=== PATIENT | female | born 1945 | race African-American/Black ===

== ENCOUNTER 2018-09-13 13:49 | Inpatient (IN) | payer MEDICARE, OTHER ==
[~2018-09-13] VITALS: Ht 162.6 cm; Wt 59.0 kg
--- NOTE | 2018-09-13 13:52 | NUR ---
ED Nurse Note: BROUGHT IN BY ERVIN FROM [facility] DUE TO NECK PAIN AND TINGLING SENSATION SINCE LAST NIGHT. PT CAME IN WITH NECK COLLAR. PER PT, SHE WEARS NECK COLLAR AT NIGHT TIME IN THE HALF-WAY WHEN SHE'S IN PAIN. SHE HAS PAIN IN AFTER THE FALL IN OCTOBER 2017. NO TRAUMA
[2018-09-13 13:55] VITALS: BP 141/65
--- NOTE | 2018-09-13 13:56 | Emergency Room Report ---
History of Present Illness General Chief Complaint: Neck Pain Source: Patient, EMS Present Illness HPI Patient is brought to the emergency department for increased neck pain and numbness. He had a fall in October. She is in a chronic brace at this time. There is no trauma today however she had increased neck pain and then started having numbness throughout her body. She denies chest pain at this time. She was given Carr earlier today. The pain is still significant in her neck. Pain rated 5/10 luis antonio and lower back, not radiating and constant. No recent trauma. She had neck trauma and neck fusion surgery 4 months ago. No fevers, chills, chest pain, palpitations, nausea, vomiting, diarrhea, dysuria , abdominal pain, shortness of breath, depression, visual changes, headache. Patient is not taking blood thinners and denies oncologic problems. H/O HTN H/O DM Allergies: Coded Allergies: CODEINE (Verified Allergy, Unknown, 09/13/18) Patient History Past Medical History: see triage record Past Surgical History: other - neck fusion Social History: Denies: smoking Social History Narrative [facility] Reviewed Nursing Documentation: PMH: Agreed; PSxH: Agreed Nursing Documentation-PMH Past Medical History: No History, Except For Hx Hypertension: Yes - hyperlipidemia Hx Diabetes: Yes History Of Psychiatric Problem: Yes - anxiety, muscle weakness Review of Systems All Other Systems: negative except mentioned in HPI Physical Exam Vital Signs Date Time Temp Pulse Resp B/P (MAP) Pulse Ox O2 Delivery O2 Flow Rate FiO2 09/13/18 13:48 98.4 103 14 141/65 100 Room Air Sp02 EP Interpretation: reviewed, normal General Appearance: no apparent distress, GCS 15, Chronically Ill Head: normocephalic, atraumatic Eyes: bilateral eye normal inspection, bilateral eye PERRL ENT: moist mucus membranes Neck: no bony tend, other - Rigid cervical collar in place, tender - Diffuse Respiratory: chest non-tender, lungs clear, normal breath sounds Cardiovascular #1: regular rate, rhythm Cardiovascular #2: 2+ radial (R) Gastrointestinal: normal inspection, normal bowel sounds, non tender, no mass, non-distended Genitourinary: no CVA tenderness Musculoskeletal: normal range of motion, tender - Lumbar area with muscle tightness Neurologic: alert, oriented x3, DTRs symmetric, cerebellar normal - Upper extremities, speech normal, no Babinski, motor weakness - Lower extremities - minimal. upper extremities normal strength, other - Subjective tingling and numbness face and body not lateralized Psychiatric: anxious Skin: normal inspection, warm/dry Medical Decision Making Diagnostic Impression: Primary Impression: Intractable back pain Additional Impressions: Intractable neck pain Paresthesias Anxiety ER Course The patient presents with neck pain and increased numbness. Differential includes anxiety, increase in chronic pain, spinal stenosis, CVA, post operative hematoma amongst others. The patient will be evaluated with EKG, chest x-ray, CT the head and CT the neck and labs. The patient will be treated with a dose of Zofran and morphine. The patient is placed on a manager monitoring. Labs significant for low white count. Elevated BUN. CT neck and head as listed below. Patient still was with significant pain. Morphine is repeated. There is slight relief. She still feels paresthesias. Etiology of the paresthesias are unclear. The patient is admitted to the hospital for further evaluation and treatment of pain. Laboratory Tests Test 09/13/18 14:48 09/13/18 15:30 09/14/18 05:45 White Blood Count 3.4 K/UL (4.8-10.8) L 2.7 K/UL (4.8-10.8) L Red Blood Count 3.63 M/UL (4.20-5.40) L 3.58 M/UL (4.20-5.40) L Hemoglobin 9.7 G/DL (12.0-16.0) L 9.7 G/DL (12.0-16.0) L Hematocrit 30.8 % (37.0-47.0) L 30.4 % (37.0-47.0) L Mean Corpuscular Volume 85 FL (80-99) 85 FL (80-99) Mean Corpuscular Hemoglobin 26.8 PG (27.0-31.0) L 27.1 PG (27.0-31.0) Mean Corpuscular Hemoglobin Concent 31.6 G/DL (32.0-36.0) L 31.8 G/DL (32.0-36.0) L Red Cell Distribution Width 12.8 % (11.6-14.8) 13.1 % (11.6-14.8) Platelet Count 198 K/UL (150-450) 200 K/UL (150-450) Mean Platelet Volume 6.4 FL (6.5-10.1) L 6.7 FL (6.5-10.1) Neutrophils (%) (Auto) % (45.0-75.0) % (45.0-75.0) Lymphocytes (%) (Auto) % (20.0-45.0) % (20.0-45.0) Monocytes (%) (Auto) % (1.0-10.0) % (1.0-10.0) Eosinophils (%) (Auto) % (0.0-3.0) % (0.0-3.0) Basophils (%) (Auto) % (0.0-2.0) % (0.0-2.0) Differential Total Cells Counted 100 100 Neutrophils % (Manual) 43 % (45-75) L 45 % (45-75) Lymphocytes % (Manual) 41 % (20-45) 48 % (20-45) H Monocytes % (Manual) 16 % (1-10) H 7 % (1-10) Eosinophils % (Manual) 0 % (0-3) 0 % (0-3) Basophils % (Manual) 0 % (0-2) 0 % (0-2) Band Neutrophils 0 % (0-8) 0 % (0-8) Platelet Estimate Adequate Adequate Platelet Morphology Normal Normal Red Blood Cell Morphology Normal Prothrombin Time 10.4 SEC (9.30-11.50) Prothrombin Time INR 1.0 (0.9-1.1) PTT 25 SEC (23-33) Sodium Level 137 MMOL/L (136-145) 138 MMOL/L (136-145) Potassium Level 4.3 MMOL/L (3.5-5.1) 3.9 MMOL/L (3.5-5.1) Chloride Level 100 MMOL/L (98-107) 102 MMOL/L (98-107) Carbon Dioxide Level 27 MMOL/L (21-32) 28 MMOL/L (21-32) Anion Gap 10 mmol/L (5-15) 8 mmol/L (5-15) Blood Urea Nitrogen 20 mg/dL (7-18) H 15 mg/dL (7-18) Creatinine 1.1 MG/DL (0.55-1.30) 1.0 MG/DL (0.55-1.30) Estimate Glomerular Filtration Rate mL/min (>60) mL/min (>60) Glucose Level 140 MG/DL (74-106) H 108 MG/DL (74-106) H Calcium Level 10.1 MG/DL (8.5-10.1) 9.7 MG/DL (8.5-10.1) Total Bilirubin 0.4 MG/DL (0.2-1.0) 0.5 MG/DL (0.2-1.0) Aspartate Amino Transferase (AST) 15 U/L (15-37) 19 U/L (15-37) Alanine Aminotransferase (ALT) 29 U/L (12-78) 30 U/L (12-78) Alkaline Phosphatase 68 U/L (46-116) 49 U/L (46-116) C-Reactive Protein, Quantitative < 0.4 mg/dL (0.00-0.90) Total Protein 7.7 G/DL (6.4-8.2) 7.5 G/DL (6.4-8.2) Albumin 3.9 G/DL (3.4-5.0) 3.7 G/DL (3.4-5.0) Globulin 3.8 g/dL 3.8 g/dL Albumin/Globulin Ratio 1.0 (1.0-2.7) 1.0 (1.0-2.7) Erythrocyte Sedimentation Rate 55 MM/HR (0-30) H Hypochromasia 1+ Rhythm Strip Diag. Results EP Interpretation: yes Rhythm: NSR, no PVC's, no ectopy Chest X-Ray Diagnostic Results Chest X-Ray Diagnostic Results : Chest X-Ray Ordered: Yes # of Views/Limited/Complete: 1 View Indication: Other EP Interpretation: Yes Interpretation: no consolidation, no effusion, no pneumothorax, other - Neck fusion Impression: Other Electronically Signed by: Electronically signed by Taurus Gill MD CT/MRI/US Diagnostic Results CT/MRI/US Diagnostic Results #1: Imaging Test Ordered: Head Impression Chronic involutional changes CT/MRI/US Diagnostic Results #2: Imaging Test Ordered: Cervical spine Impression Impression: No acute bony trauma Evidence of anterior cervical fusion, as described. There appears to be successful ankylosis of the fused disc segments Degenerative changes as detailed above on a level by level basis Incidental finding of calcified left upper pole thyroid nodule Status: improved Disposition: ADMITTED INPATIENT Condition: Serious Taurus Gill MD Sep 13, 2018 13:56
[2018-09-13] MEDS ORDERED: Morphine Sulfate 2mg/ml Inj(IV/IM USE ONLY) IVP ONE (14:00)
[2018-09-13] MEDS ORDERED: MAGNESIUM OXID400 M2 PO (14:46)
[2018-09-13] MEDS ORDERED: MULTIVITAMINS1 EAC8 ORAL (14:46)
[2018-09-13] MEDS ORDERED: NORVASC2.5 MG ORAL (14:46)
[2018-09-13] MEDS ORDERED: METFORMIN HCL1000 M1 ORAL (14:46)
[2018-09-13] MEDS ORDERED: MIRALAX17 G2 ORAL (14:46)
[2018-09-13] MEDS ORDERED: HUMALOG100 UNIT/4 (14:46)
[2018-09-13] MEDS ORDERED: MAGNESIUM CITR100 MG PO (14:46)
[2018-09-13] MEDS ORDERED: NORCO 5-325 TA1 EACH ORAL ×2 (14:46→17:55)
[2018-09-13] MEDS ORDERED: LACTULOSE20 GM/301 ORAL (14:46)
[2018-09-13] MEDS ORDERED: LIPITOR10 MG ORAL (14:46)
[2018-09-13] MEDS ORDERED: SENNA8.6 M2 PO (14:46)
--- NOTE | 2018-09-13 14:54 | NUR ---
ED Nurse Note: PT SENT DOWN FOR CT.
[2018-09-13 15:00] VITALS: BP 139/59
[2018-09-13 15:05] LABS: HEMATOCRIT 30.8 % (37.0-47.0); HEMOGLOBIN 9.7 G/DL (12.0-16.0); MEAN CORPUSCULAR VOLUME 85 FL (80-99); PLATELET COUNT 198 K/UL (150-450); RED BLOOD COUNT 3.63 M/UL (4.20-5.40); RED CELL DISTRIBUTION WIDTH 12.8 % (11.6-14.8); WHITE BLOOD COUNT 3.4 K/UL (4.8-10.8)
[2018-09-13 15:07] LABS: ANION GAP 10 mmol/L (5-15); BLOOD UREA NITROGEN 20 mg/dL (7-18); CALCIUM 10.1 MG/DL (8.5-10.1); CARBON DIOXIDE 27 MMOL/L (21-32); CHLORIDE 100 MMOL/L (98-107); CREATININE 1.1 MG/DL (0.55-1.30); POTASSIUM 4.3 MMOL/L (3.5-5.1); SODIUM 137 MMOL/L (136-145)
[2018-09-13 15:12] LABS: ALANINE AMINOTRANSFERASE 29 U/L (12-78); ALBUMIN 3.9 G/DL (3.4-5.0); ALKALINE PHOSPHATASE 68 U/L (46-116); ASPARTATE AMINO TRANSFERASE 15 U/L (15-37); BILIRUBIN,TOTAL 0.4 MG/DL (0.2-1.0)
--- NOTE | 2018-09-13 15:30 | NUR ---
ED Nurse Note: NOTIFIED DR. Starkey THAT PT'S BS REMAINS "HIGH'" AFTER ONE HOUR OF INSULIN DRIP OF 5U/HR. PER DR. Starkey/ THAT IT'S OK TO RAISE UP TO 6U/HR AND NO OTHER ORDERS RECEIVED. TELEPHONE REPORT GIVEN TO NATHALIA AGGARWAL IN ICU. PER YESSENIA SLOAN, NO BED AVAILABLE AT THIS TIME, SHE WILL CALL BACK WHEN THE BED IS READY.
--- NOTE | 2018-09-13 15:32 | Diagnostic Imaging Report ---
Indications: Head pain, history of trauma, numbness Technique: Spiral acquisitions obtained through the brain. Angled axial and coronal 5 x 5 mm slices were reconstructed. Total dose length product 1326.82 mGycm. CTDI vol(s) 70.38 mGy. Dose reduction achieved using automated exposure control Comparison: None. Findings: No acute intracranial hemorrhage or edema. No mass effect or midline shift. There is mild age-related enlargement of the ventricles and extra axial CSF spaces. There is periventricular deep white matter low-attenuation, consistent with chronic ischemic change. Normal aguilar-white differentiation otherwise. Visualized orbits and sinuses are unremarkable. Intact calvarium Impression: Chronic and age-related changes Negative for acute intracranial bleed or mass effect The CT scanner at [facility] is accredited by the [employer] and the scans are performed using protocols designed to limit radiation exposure to as low as reasonably achievable to attain images of sufficient resolution adequate for diagnostic evaluation.
--- NOTE | 2018-09-13 15:39 | Diagnostic Imaging Report ---
Indication: Cervical spine pain, status post fall, neck pain Technique: Spiral acquisitions obtained through the cervical spine. No IV contrast utilized. Multiplanar reconstructions were generated. Total dose length product 241.5 mGycm. CTDIvol(s) 12.12 mGy. Dose reduction achieved using automated exposure control. Comparison: none Findings: Bony alignment is normal. There is anterior fusion hardware bridging C4, C5, C6, and C7, with intervening disc spacers. The disc spacers appear well aligned, and in the central portions of the disc spacers appear ankylosed and on the coronal images there appears to be ankylosis surrounding the disc spacers as well. The vertebral body heights are preserved. No acute fractures. No dislocations. At C2-3, there is moderate stenosis of the right neural foramen, predominantly due to uncinate hypertrophy. There is suggestion of ankylosis of the C2 and C3 spinous processes, as well as ankylosis of the right facet. The disc space is preserved. No significant disc bulge or protrusion or spinal stenosis. At C3-4, there is central posterior disc protrusion which does not significantly narrow the spinal canal. There is mild to moderate neural foraminal stenosis bilaterally, probably due to facet arthrosis. The disc space is preserved At C4-5, there is mild right, mild to moderate left neural foraminal stenosis. No significant disc bulge or protrusion or spinal stenosis. There is facet arthrosis on the right. At C5-6, there are posterior osteophytes which do not significantly narrow the spinal canal. There is mild to moderate left, severe right neural foraminal stenosis. There is facet arthrosis on the right. At C6-7 and, there are posterior osteophytes which result in mild narrowing of the spinal canal. There is mild to moderate bilateral neural foraminal stenosis, predominantly due to uncinate hypertrophy. There is minimal facet arthrosis on the left. At C7-T1, no significant disc bulge or protrusion, spinal stenosis, or neural foraminal stenosis. The included extra spinal soft tissues demonstrate a calcified left upper pole thyroid nodule. Some scarring is seen at the right lung apex. Impression: No acute bony trauma Evidence of anterior cervical fusion, as described. There appears to be successful ankylosis of the fused disc segments Degenerative changes as detailed above on a level by level basis Incidental finding of calcified left upper pole thyroid nodule The CT scanner at [facility] is accredited by the [employer] and the scans are performed using protocols designed to limit radiation exposure to as low as reasonably achievable to attain images of sufficient resolution adequate for diagnostic evaluation.
--- NOTE | 2018-09-13 16:42 | Diagnostic Imaging Report ---
Indication: Chest Technique: One view of the chest Comparison: none Findings: Lungs and pleural spaces are clear. Heart size is normal. There is cervical spine fusion hardware incidentally noted Impression: No acute process
[2018-09-13] MEDS ORDERED: Morphine Sulfate 4mg/ml Inj (IV USE ONLY) IVP ONE (16:45)
[2018-09-13 17:00] VITALS: BP 133/55
[2018-09-13] MEDS ORDERED: DOCUSATE SODIU100 MG ORAL (17:55)
[2018-09-13] MEDS ORDERED: SORE THROAT LO1 EAC3 MM (17:55)
[2018-09-13] MEDS ORDERED: METFORMIN HCL500 M1 ORAL (17:55)
[2018-09-13] MEDS ORDERED: PROMETHAZINE-D118 ML ORAL (17:55)
[2018-09-13] MEDS ORDERED: SORE THROAT LO1 EAC1 MM (17:55)
[2018-09-13] MEDS ORDERED: TRAMADOL HCL50 MG ORAL (17:58)
[2018-09-13] MEDS ORDERED: ACETAMINOPHEN325 M1 ORAL (17:58)
[2018-09-13] MEDS ORDERED: VITAMIN D1000 UNI1 ORAL (17:58)
[2018-09-13] MEDS ORDERED: ZANTAC150 MG ORAL (17:58)
[2018-09-13] MEDS ORDERED: ZOFRAN4 M3 ORAL (17:58)
--- NOTE | 2018-09-13 18:28 | NUR ---
ED Nurse Note: attempted to give telephone report to 3E. per staff in 3E, no nurse is assigned for this patient yet, she will call back.
--- NOTE | 2018-09-13 18:42 | NUR ---
ED Nurse Note: ATTEMPTED TO GIVE TELEPHONE REPORT TO 3E. PER STAFF IN 3E THAT THEY HAVE NO ASSGINED NURSE AT THIS TIME. PICTURE FRAMER WILL RECEIVE THE PATIENT. NOTIFIED ABDI BANGURA.
[2018-09-13 18:59] VITALS: BP 130/64
--- NOTE | 2018-09-13 19:08 | NUR ---
HAND-OFF: Report given to NATHALIA AMIN. VRE/CRE/MRSA SWAB AND BELONGING LIST ENDORSED TO NATHALIA AMIN. PT REMAINS STABLE.
--- NOTE | 2018-09-13 19:55 | NUR ---
ED Nurse Note: CRE VRE MRSA swabs collected; sent down to lab.
--- NOTE | 2018-09-13 20:00 | NUR ---
TRANSFER TO FLOOR: Patient transferred to Med Surg 301-2 as ordered, per MD Boris . Report given to NATHALIA Campuzano. Belongings list completed with receiving RN. PT AO4. IAN. HAILEY.
--- NOTE | 2018-09-13 20:05 | NUR ---
NURSE NOTES: Patient brought to floor by ER transport via hospital bed. Report taken from NATHALIA Starr. Patient awake and in bed, A&Ox4. Patient wearing cervical collar upon admit to floor. No signs of distress on room air. patient is having pain in the posterior of her head, 8/10. C/O some minor numbness and tingling down bilateral upper/lower extremities. Upon assessment patient has some minimal sensation in distal extremities, states that she feels it is coming from the neck pain. VRE/CRE amd MRSA pending. IV site on Rt. forearm, c/d/i and patent. Skin is c/d/i, no issues. MD contacted and orders received. Bed in lowest position, call light within reach.
[2018-09-13 20:10] VITALS: BP 128/65
[2018-09-13] MEDS ORDERED: Morphine Sulfate 4mg/ml Inj (IV USE ONLY) IVP PRN (22:00)
[2018-09-14] VITALS: BP 122/61
[2018-09-14 04:00] VITALS: BP 121/93
[2018-09-14] MEDS: NovoLOG Insulin Flexpen SUBQ SCH ×4 (05:55→20:59)
[2018-09-14 07:02] LABS: HEMATOCRIT 30.4 % (37.0-47.0); HEMOGLOBIN 9.7 G/DL (12.0-16.0); MEAN CORPUSCULAR VOLUME 85 FL (80-99); PLATELET COUNT 200 K/UL (150-450); RED BLOOD COUNT 3.58 M/UL (4.20-5.40); RED CELL DISTRIBUTION WIDTH 13.1 % (11.6-14.8); WHITE BLOOD COUNT 2.7 K/UL (4.8-10.8)
--- NOTE | 2018-09-14 07:20 | NUR ---
HAND-OFF: Report given to NATHALIA Rodriguez.
--- NOTE | 2018-09-14 07:23 | NUR ---
NURSE NOTES: AWAKE /ALERT. PAIN SCALE 6/10. STILL C/O NUMBNESS/TIMGLING HOTH LEGS AND HANDS. HAND GRASP WEAK. AND WEAKNESS BOTH FEET. IN NO ACUTE DISTRESS.
[2018-09-14 07:29] LABS: ALANINE AMINOTRANSFERASE 30 U/L (12-78); ALBUMIN 3.7 G/DL (3.4-5.0); ALKALINE PHOSPHATASE 49 U/L (46-116); ANION GAP 8 mmol/L (5-15); ASPARTATE AMINO TRANSFERASE 19 U/L (15-37); BILIRUBIN,TOTAL 0.5 MG/DL (0.2-1.0); BLOOD UREA NITROGEN 15 mg/dL (7-18); CALCIUM 9.7 MG/DL (8.5-10.1); CARBON DIOXIDE 28 MMOL/L (21-32); CHLORIDE 102 MMOL/L (98-107); POTASSIUM 3.9 MMOL/L (3.5-5.1); SODIUM 138 MMOL/L (136-145)
[2018-09-14 08:00] VITALS: BP 118/61
--- NOTE | 2018-09-14 08:52 | Consultation ---
History of Present Illness General Date patient seen: Sep 14, 2018 Chief Complaint: Present Illness Allergies: Coded Allergies: CODEINE (Verified Allergy, Unknown, 09/13/18) Medication History Scheduled Amlodipine Besylate (Norvasc), 2.5 MG ORAL BID, (Reported) Atorvastatin Calcium* (Lipitor*), 10 MG ORAL BEDTIME, (Reported) Cholecalciferol (Vitamin D3)* (Vitamin D*), 1,000 UNIT ORAL DAILY, (Reported) Docusate Sodium* (Docusate Sodium*), 100 MG ORAL TWICE A DAY, (Reported) Magnesium Citrate (Magnesium Citrate), 100 MG PO PRN, (Reported) Magnesium Oxide (Magnesium Oxide), 400 MG PO BID, (Reported) Metformin Hcl* (Metformin Hcl*), 1,000 MG ORAL TWICE A DAY, (Reported) Multivitamin With Minerals (Multivitamins With Minerals*), 1 TAB ORAL DAILY, ( Reported) Polyethylene Glycol 3350* (Miralax*), 17 GM ORAL DAILY, (Reported) Ranitidine Hcl* (Zantac*), 150 MG ORAL TWICE A DAY, (Reported) Sennosides (Senna), 2 TAB PO BEDTIME, (Reported) Scheduled PRN Acetaminophen* (Acetaminophen 325MG Tablet*), 650 MG ORAL Q6H PRN for Mild Pain (Pain Scale 1-3), (Reported) Benzocaine/Menthol (Sore Throat Lozenge), 1 EACH MM EVERY 2 HOURS PRN for sore throat, (Reported) D-Methorphan Hb/Prometh Hcl* (Promethazine-Dm Syrup*), 5 ML ORAL Q6H PRN for For Cough, (Reported) Hydrocodone Bit/Acetaminophen 5-325* ([place] 5-325*), 1 TAB ORAL Q4H PRN for Moderate Pain (Pain Scale 4-6), (Reported) Hydrocodone Bit/Acetaminophen 5-325* ([place] 5-325*), 2 TAB ORAL Q6H PRN for Severe Pain (Pain Scale 7-10), (Reported) Lactulose (Lactulose*), 30 ML ORAL Q6HR PRN for Constipation, (Reported) Ondansetron* (Zofran*), 4 MG ORAL Q6H PRN for Nausea & Vomiting, (Reported) Tramadol Hcl* (Ultram*), 50 MG ORAL Q6H PRN for Severe Pain (Pain Scale 7-10), ( Reported) Miscellaneous Medications Insulin Lispro (Humalog), (Reported) Discontinued Medications Metformin Hcl* (Metformin Hcl*), 1,000 MG ORAL BID, (Reported) Discontinued Reason: Prescription changed Patient History Healthcare decision maker Y Resuscitation status Full Code Advanced Directive on File Physical Exam Last 24 Hour Vital Signs Date Time Temp Pulse Resp B/P (MAP) Pulse Ox O2 Delivery O2 Flow Rate FiO2 09/14/18 08:28 Room Air 09/14/18 08:00 98.5 101 18 118/61 (80) 97 09/14/18 04:00 98.5 88 16 121/93 (102) 100 09/14/18 00:00 98.4 93 18 122/61 (81) 99 09/13/18 22:10 Room Air 09/13/18 20:10 98.7 90 17 128/65 (86) 98 09/13/18 20:00 98.4 89 10 130/64 100 Room Air 09/13/18 19:32 98.4 09/13/18 19:31 98.4 09/13/18 18:59 98.4 89 10 130/64 100 Room Air 09/13/18 17:00 92 19 133/55 100 Room Air 09/13/18 15:00 98.4 93 16 139/59 100 Room Air 09/13/18 13:55 98.4 97 14 141/65 100 Room Air 09/13/18 13:48 98.4 103 14 141/65 100 Room Air Intake and Output 09/13/18 09/14/18 19:00 07:00 Intake Total 250 ml Balance 250 ml Intake Oral 250 ml # Voids 2 Laboratory Tests Test 09/13/18 14:48 09/13/18 15:30 09/14/18 05:45 White Blood Count 3.4 K/UL (4.8-10.8) L 2.7 K/UL (4.8-10.8) L Red Blood Count 3.63 M/UL (4.20-5.40) L 3.58 M/UL (4.20-5.40) L Hemoglobin 9.7 G/DL (12.0-16.0) L 9.7 G/DL (12.0-16.0) L Hematocrit 30.8 % (37.0-47.0) L 30.4 % (37.0-47.0) L Mean Corpuscular Volume 85 FL (80-99) 85 FL (80-99) Mean Corpuscular Hemoglobin 26.8 PG (27.0-31.0) L 27.1 PG (27.0-31.0) Mean Corpuscular Hemoglobin Concent 31.6 G/DL (32.0-36.0) L 31.8 G/DL (32.0-36.0) L Red Cell Distribution Width 12.8 % (11.6-14.8) 13.1 % (11.6-14.8) Platelet Count 198 K/UL (150-450) 200 K/UL (150-450) Mean Platelet Volume 6.4 FL (6.5-10.1) L 6.7 FL (6.5-10.1) Neutrophils (%) (Auto) % (45.0-75.0) % (45.0-75.0) Lymphocytes (%) (Auto) % (20.0-45.0) % (20.0-45.0) Monocytes (%) (Auto) % (1.0-10.0) % (1.0-10.0) Eosinophils (%) (Auto) % (0.0-3.0) % (0.0-3.0) Basophils (%) (Auto) % (0.0-2.0) % (0.0-2.0) Differential Total Cells Counted 100 Neutrophils % (Manual) 43 % (45-75) L Pending Lymphocytes % (Manual) 41 % (20-45) Pending Monocytes % (Manual) 16 % (1-10) H Eosinophils % (Manual) 0 % (0-3) Basophils % (Manual) 0 % (0-2) Band Neutrophils 0 % (0-8) Platelet Estimate Adequate Pending Platelet Morphology Normal Pending Red Blood Cell Morphology Normal Prothrombin Time 10.4 SEC (9.30-11.50) Prothromb Time International Ratio 1.0 (0.9-1.1) Activated Partial Thromboplast Time 25 SEC (23-33) Sodium Level 137 MMOL/L (136-145) 138 MMOL/L (136-145) Potassium Level 4.3 MMOL/L (3.5-5.1) 3.9 MMOL/L (3.5-5.1) Chloride Level 100 MMOL/L (98-107) 102 MMOL/L (98-107) Carbon Dioxide Level 27 MMOL/L (21-32) 28 MMOL/L (21-32) Anion Gap 10 mmol/L (5-15) 8 mmol/L (5-15) Blood Urea Nitrogen 20 mg/dL (7-18) H 15 mg/dL (7-18) Creatinine 1.1 MG/DL (0.55-1.30) 1.0 MG/DL (0.55-1.30) Estimat Glomerular Filtration Rate mL/min (>60) mL/min (>60) Glucose Level 140 MG/DL (74-106) H 108 MG/DL (74-106) H Calcium Level 10.1 MG/DL (8.5-10.1) 9.7 MG/DL (8.5-10.1) Total Bilirubin 0.4 MG/DL (0.2-1.0) 0.5 MG/DL (0.2-1.0) Aspartate Amino Transf (AST/SGOT) 15 U/L (15-37) 19 U/L (15-37) Alanine Aminotransferase (ALT/SGPT) 29 U/L (12-78) 30 U/L (12-78) Alkaline Phosphatase 68 U/L (46-116) 49 U/L (46-116) C-Reactive Protein, Quantitative < 0.4 mg/dL (0.00-0.90) Total Protein 7.7 G/DL (6.4-8.2) 7.5 G/DL (6.4-8.2) Albumin 3.9 G/DL (3.4-5.0) 3.7 G/DL (3.4-5.0) Globulin 3.8 g/dL 3.8 g/dL Albumin/Globulin Ratio 1.0 (1.0-2.7) 1.0 (1.0-2.7) Erythrocyte Sedimentation Rate 55 MM/HR (0-30) H Microbiology Date/Time Source Procedure Growth Status 09/13/18 19:30 Rectum Received Height (Feet): 5 Height (Inches): 4.00 Weight (Pounds): 130 Medications Current Medications Medications (Trade) Dose Ordered Sig/Bree Route PRN Reason Start Time Stop Time Status Last Admin Dose Admin Acetaminophen (Tylenol) 500 mg Q4H PRN ORAL Mild Pain/Temp > 100.5 09/13/18 22:00 10/13/18 21:59 Dextrose (Dextrose 50%) 25 ml Q30M PRN IV Hypoglycemia 09/13/18 22:00 10/13/18 21:59 Dextrose (Dextrose 50%) 50 ml Q30M PRN IV Hypoglycemia 09/13/18 22:00 10/13/18 21:59 Insulin Aspart (NovoLOG) BEFORE MEALS AND HS SUBQ 09/14/18 06:30 10/14/18 06:29 09/14/18 05:55 Morphine Sulfate (Morphine Sulfate) 4 mg Q4H PRN IVP For Pain 09/13/18 22:00 09/20/18 21:59 09/13/18 22:52 Ondansetron HCl (Zofran) 4 mg Q6H PRN IVP Nausea & Vomiting 09/13/18 22:00 10/13/18 21:59 09/13/18 22:54 Assessment/Plan Assessment/Plan (1) Lumbar and Cervical DDD (2) Lumbar and Cervical Spondylosis (3) Lumbar and Cervical Radiculopathy (4) H/O Cervical Fusion (5) H/O Lumbar Surgery seen dictated Aris Sanderson Sep 14, 2018 08:52
--- NOTE | 2018-09-14 11:05 | NUR ---
RADIOLOGY DEPT LUMBAR SPINE X-RAY COMPLETED.-P.DYE
[2018-09-14] MEDS: HYDROcodone/Acetamin 10/325 tab ORAL PRN ×3 (11:12→21:58)
[2018-09-14 12:00] VITALS: BP 128/89
--- NOTE | 2018-09-14 14:09 | Diagnostic Imaging Report ---
Indication: Pain Technique: 3 views of the lumbar spine Comparison: None Findings: Bony alignment is normal. Vertebral body heights are preserved. The disc spaces are preserved. No definite acute fractures. No dislocations. The bones are osteoporotic. Densely calcified uterine fibroids are noted in the pelvis Impression: No acute process
[2018-09-14 16:00] VITALS: BP 129/64
[2018-09-14] MEDS ORDERED: HYDROcodone/Acetamin 10/325 tab ORAL SCH (18:00)
[2018-09-14] MEDS ORDERED: Gadavist 7.5mMol/7.5ml vial IV PRN (18:30)
--- NOTE | 2018-09-14 19:11 | NUR ---
NURSE NOTES: CEMENT MIXER HERE TO TAKE PT FOR MRI C SPINE AND MRI T SPINE. REFUSED TO GO TONITE . STATES SHE'S IN PAIN. WANTS IT DONE IN AM.
--- NOTE | 2018-09-14 19:14 | NUR ---
NURSE NOTES:[facility] received [facility] . Patient resting in bed as this time . denies any pain at this time . no sob/ non/v noted .RFA g3 20 H/L patent and intact . call light within reach bed in low position at all times. will continue to monitor pa Addendum: 09/15/18 at 0200 by FUNMILAYO DE LA FUENTE LVN patient skin intact . scds on bilateral lower extremities .
[2018-09-14 20:00] VITALS: BP 116/56
--- NOTE | 2018-09-14 21:58 | NUR ---
NURSE NOTES: patient c/o neck and back pain 6 out of 10 . NORCO 10/325mg po given and re assess with good relief . patient asleep during rounds .call light within reach. bed in low position at all times will continue to monitor .
[2018-09-15] VITALS: BP 115/60
[2018-09-15 04:00] VITALS: BP 127/56
--- NOTE | 2018-09-15 04:45 | Consultation ---
DATE OF CONSULTATION: 09/14/2018 CONSULTING PHYSICIAN: Annamaria Marte M.D. REFERRING PHYSICIAN: Maribel Lundberg M.D. PHYSICIAN DIRECTOR OF FOOD AND NUTRITION SERVICES: Steve Blackburn CHIEF COMPLAINT: Neck and low back pain. HISTORY OF PRESENT ILLNESS: This is a 73-year-old female who is being seen on the Med/Surg floor of [facility] for initial pain management consultation. The patient was admitted under the care of Dr. Lundberg concerning of neck pain and low back pain and had been residing in a nursing facility status post cervical fusion, which was done at [facility], now admitted due to complaints of increased pain and weakness in the upper and lower extremities with pain shooting down from the neck into the upper extremity and the lower back into the lower extremities. The patient reports this she has been taking Manati 5/325 during the day in the nursing facility with minimal pain relief, started on the morphine 4 mg IV every 4 hours with minimal pain relief. Discussed with the patient about increasing the Manati to 10 mg and discontinue the morphine, she seems understanding. PAST MEDICAL HISTORY: Diabetes mellitus, hypertension, hyperlipidemia, and anxiety. PAST SURGICAL HISTORY: Lumbar surgery and cervical fusion. ALLERGIES: Codeine. MEDICATIONS: Norvasc, Lipitor, magnesium citrate, metformin, multivitamin, MiraLax, Zantac, Senna, Tylenol, promethazine, Manati, lactulose, Zofran, and Ultram. REVIEW OF SYSTEMS: Denies rash, fever, chills, sweating, dizziness, drowsiness, blurred vision, sore throat, change in hearing. No shortness of breath or chest pain. No nausea, vomiting, diarrhea, or blood in the stool or urine. No dysuria. She is complaining of low back pain. IMAGING: CT scan of the cervical spine without contrast, evidence of anterior cervical fusion. There appears to be severe ankylosis of diffuse disk segment, degenerative changes, and no acute bony trauma. PHYSICAL EXAMINATION: GENERAL: Alert, awake, and oriented. VITAL SIGNS: Blood pressure 118/61, heart rate 71, oxygen saturation 99%, respiratory rate 18, and temperature 99.5 degrees Fahrenheit. HEENT: PERRLA. NECK: Range of motion is full in all directions. No tenderness to paracervical muscles. No adenopathy. LUNGS: Clear bilaterally. HEART: S1 and S2 regular. ABDOMEN: Benign. BACK: Range of motion is full on flexion and extension with tenderness to paraspinal muscles. No tenderness to trapezius or rhomboid muscles. Surgical scar noted on midline of lumbar spine. EXTREMITIES: Range of motion is full in all directions. No cyanosis. No clubbing. Sensory is intact. Reflexes are not obtainable. No adenopathy. ASSESSMENT AND PLAN: The patient is a 73-year-old female with cervical and lumbar degenerative disk disease, cervical and lumbar spondylosis, cervical and lumbar radiculopathy, history of cervical fusion, and history of lumbar surgery. The patient will be discontinued off the morphine, started on Manati 10/325 every 4 hours as needed for severe pain and Neurontin 100 mg tablet three times a day. We will order an x-ray of the lumbar spine to rule out any further pathology in the lower back. The patient was discussed with Dr. Marte and he concurred. We will follow the patient. Thank you very much for the courtesy of this consultation. Annamaria Marte M.D. RACIEL Blackburn DR: ZHENG JOB#: [id number] CC: KADI
[2018-09-15] MEDS: NovoLOG Insulin Flexpen SUBQ SCH ×4 (06:13→21:09)
[2018-09-15] MEDS: HYDROcodone/Acetamin 10/325 tab ORAL PRN ×2 (06:39→17:59)
--- NOTE | 2018-09-15 07:30 | NUR ---
HAND-OFF: Report given to MANDY Freeman patient in stable conditions.
--- NOTE | 2018-09-15 07:35 | NUR ---
NURSE NOTES: Report received from outgoing NIB INSPECTOR, rounds made. Patient sitting in high fowlers position in bed with cervical collar in place. RFA heplock intact, site asymptomatic. Bilateral SCDs on. Patient denies NV/Pain/SOB. CMS+, weakness to bilateral hand grasps and bilateral pedal pushes. Patient scheduled for MRI of Cervical/Thoracic Spine, patient aware. Call light in reach, bed in lowest position, will continue to monitor.
--- NOTE | 2018-09-15 07:40 | NUR ---
HAND-OFF: Report given to Cornelius SLOAN.
[2018-09-15 08:00] VITALS: BP 103/53
--- NOTE | 2018-09-15 09:03 | General Progress Note ---
Assessment/Plan Assessment/Plan (1) Lumbar and Cervical DDD (2) Lumbar and Cervical Spondylosis (3) Lumbar and Cervical Radiculopathy (4) H/O Cervical Fusion (5) H/O Lumbar Surgery We will continue [facility] and increase Neurontin to 200mg. One time dose of Morphine 4mg IV for MRIs. D/w Dr. Marte and he concurred. Subjective Date patient seen: Sep 15, 2018 Time patient seen: 08:00 - am Allergies: Coded Allergies: CODEINE (Verified Allergy, Unknown, 09/13/18) Subjective REVIEW OF SYSTEMS: Denies rash, fever, chills, sweating, dizziness, drowsiness, blurred vision, sore throat, change in hearing. No shortness of breath or chest pain. No nausea, vomiting, diarrhea, or blood in the stool or urine. No dysuria. She is complaining of low back pain. SUBJECTIVE: She continues to c/o severe pain d/w her about increasing the Neurontin. Was seen by Neuro who has order MRI of C and T spine. Objective Last 24 Hour Vital Signs Date Time Temp Pulse Resp B/P (MAP) Pulse Ox O2 Delivery O2 Flow Rate FiO2 09/15/18 07:09 98.1 09/15/18 04:00 98.1 104 18 127/56 (79) 100 09/15/18 00:00 98.1 86 18 115/60 (78) 100 09/14/18 21:00 Room Air 09/14/18 20:00 98.1 90 18 116/56 (76) 100 09/14/18 18:35 98.0 09/14/18 16:00 99.5 89 18 129/64 (85) 98 09/14/18 12:00 98.0 104 18 128/89 (102) 98 Intake and Output 09/14/18 09/15/18 19:00 07:00 Intake Total 120 ml 640 ml Output Total 100 ml 300 ml Balance 20 ml 340 ml Intake Oral 120 ml 640 ml Output Urine Total 300 ml Emesis 100 ml # Voids 2 Height (Feet): 5 Height (Inches): 4.00 Weight (Pounds): 130 Objective GENERAL: Alert, awake, and oriented. LUNGS: Clear bilaterally. HEART: S1 and S2 regular. ABDOMEN: Benign. EXTREMITIES: No cyanosis. No NEURO: No changes. Zedner,Aris N. PA Sep 15, 2018 09:03
[2018-09-15] MEDS ORDERED: Morphine Sulfate 4mg/ml Inj (IV USE ONLY) IVP PRN (09:15)
--- NOTE | 2018-09-15 10:59 | General Progress Note ---
Assessment/Plan Problem List: (1) Paresthesias ICD Codes: R20.2 - Paresthesia of skin SNOMED: 05207991 (2) Intractable back pain ICD Codes: M54.9 - Dorsalgia, unspecified SNOMED: 082533292 (3) Anxiety ICD Codes: F41.9 - Anxiety disorder, unspecified SNOMED: 74843530 Status: progressing Assessment/Plan neck pain and bilat paresethsia dr patel neurology is consulted to r/o spine pathology causing paresethsia pain management per dr figueredo Subjective Allergies: Coded Allergies: CODEINE (Verified Allergy, Unknown, 09/13/18) Subjective neck pain and bilat ue and le paresthesia Objective Last 24 Hour Vital Signs Date Time Temp Pulse Resp B/P (MAP) Pulse Ox O2 Delivery O2 Flow Rate FiO2 09/15/18 07:09 98.1 09/15/18 04:00 98.1 104 18 127/56 (79) 100 09/15/18 00:00 98.1 86 18 115/60 (78) 100 09/14/18 21:00 Room Air 09/14/18 20:00 98.1 90 18 116/56 (76) 100 09/14/18 18:35 98.0 09/14/18 16:00 99.5 89 18 129/64 (85) 98 09/14/18 12:00 98.0 104 18 128/89 (102) 98 Intake and Output 09/14/18 09/15/18 19:00 07:00 Intake Total 120 ml 640 ml Output Total 100 ml 300 ml Balance 20 ml 340 ml Intake Oral 120 ml 640 ml Output Urine Total 300 ml Emesis 100 ml # Voids 2 Height (Feet): 5 Height (Inches): 4.00 Weight (Pounds): 130 EENT: PERRL/EOMI Neck: supple Cardiovascular: normal rate Respiratory/Chest: lungs clear Abdomen: soft Maribel Lundberg MD Sep 15, 2018 10:59
--- NOTE | 2018-09-15 11:45 | Consultation ---
DATE OF CONSULTATION: 09/14/2018 CONSULTING PHYSICIAN: Sky Ferro M.D. CHIEF COMPLAINT: The patient is a 73-year-old right-handed woman, first admission, was admitted with a chief complaint of severe neck pain and mid back pain and probably low back pain as well. HISTORY OF PRESENT ILLNESS: The patient had a back injury on 11/25/2017 and injured her neck as well. She went to [facility], was there for about a week. She had an MRI of the cervical spine and back, these problems were diagnosed. The patient did have surgery on 12/01/2017 to the cervical spine. Afterwards, she was sent to the [facility], was there for at least a week or so. The patient continued to have neck pain and back pain, but she continued to live at [facility] until yesterday where the pain got a lot worse, especially in her neck. She also developed numbness in her face and she could not feel anything in her body. The patient had some episodes of incontinence and lack of feeling that she has to urinate. She was brought to this Hospital. The chemistries yesterday on 09/13/2018 revealed a BUN of 20 and creatinine of 1.1, the rest of the chemistries were normal. Her glucose was 140 on admission and 108 today. Her liver function tests were normal. C-reactive protein yesterday was less than 0.4. Her CBC was abnormal. Her hemoglobin was 9.7 with basically low indices. Her white count was 3400 with a platelet count of 198,000. Her white count went down today to 2700. Lymphocytes were high today at 48%. RBCs revealed some hypochromasia. She did have a sed rate of 55. There was no urinalysis in the chart. The patient had an EKG, it revealed sinus tachycardia, otherwise appeared to be normal. The patient underwent a CT scan of the brain on 09/13/2018, which revealed chronic and age-related changes. A chest x-ray yesterday revealed no acute process. There is cervical spine fusion hardware incidentally noted. Her cervical spine x-ray revealed anterior fusion hardware bridging C4 through C7 with intervening disk spaces, which were well aligned. There is moderate stenosis of the right neural foramina at C2-C3 with suggestion of ankylosis of the C2-C3 spinous process. At C4-C5, there is a central posterior disk protrusion, which does not significantly narrow the spinal canal. There is mild to moderate neural foraminal stenosis at C4-C5. There is mild to moderate left neural foraminal stenosis at C5-C6. There are posterior osteophytes, which do not significantly narrow the spinal canal. There is mild to moderate left severe right neural foraminal stenosis at C6-C7, posterior osteophytes were noted, which resulted in mild narrowing of the spinal canal with bilateral mild to moderate neural foraminal stenosis at C7-T1, no significant disk bulges or protrusions, spinal stenosis, or neural foraminal stenosis was seen. There is a calcified left upper pole of the thyroid nodule and some scarring was seen at the right lung apex. The patient complains of numbness going into her arms. She denies any history of seizures or blackouts and memory is "okay." There is no language disorder. After her surgery, for about a couple of months, she had tremor in her hands and then it disappeared. She had muscle weakness in the arms and legs giving her pain. She did have vertigo in the past. She also complains of daily bifrontal headaches. She denies any hearing loss. She has occasional tinnitus. She denies any history of diplopia. She has trouble with near vision and no dysarthria or dysphagia. There is no known family history of neurologic disease. PAST MEDICAL HISTORY/ILLNESSES: 1. Hypertension. She is on Norvasc 2.5 mg. 2. AODM type 2. She is on 1000 mg b.i.d. She has diabetes for at least four years. 3. She has hyperlipidemia, on atorvastatin 10 mg. 4. Possible vitamin D deficiency and vitamin D3. She also takes plenty of vitamins. 5. Possible GERD or peptic ulcer disease. She is on Zantac 150 mg b.i.d. 6. She has chronic constipation, on lactulose. Other medications including lispro. ALLERGIES: She is allergic to codeine. PAST SURGICAL HISTORY: See above. FAMILY HISTORY: Her father was killed in an accident with a head injury. Mother probably of heart disease. She has 1 sister who is diabetic. REVIEW OF SYSTEMS: Her appetite is fair. Weight is stable. PHYSICAL EXAMINATION: GENERAL: She is a well-developed, thin woman, in wvjrnsdi-en-hflsxs distress because of pain. She is also depressed and crying. VITAL SIGNS: Blood pressure is 129/64, respiratory rate of 18, temperature of 99.3 degrees, and SpO2 is 98%. HEENT: Examination of the head, ears, eye, nose, mouth, and throat is normal for her age. There is some arcus senilis noted. NECK: She was in a hard plastic collar. LUNGS: Could not be examined. Anterior breath sounds were normal. CARDIOVASCULAR: PMI could not be felt, JVP could not be visualized. Heart tones were distant. There is no S3, S4, murmurs or rubs appreciated. ABDOMEN: The abdomen is mildly obese. Bowel sounds were decreased. There is no tenderness, masses, or organomegaly. BACK: Could not be examined because of pain. EXTREMITIES: She had tenderness of her muscles, especially in the lower extremities. NEUROLOGIC: Judgment, the judgment could not be tested. Affect, the affect is appropriate to her mood, which was depressed. Memory, her mother's maiden name is intact, immediate recall is 3/3 objects, recent recalls 2/3 objects in 5 minutes. Intellect could not be tested. Orientation, time, she knew it is 09/14/2018 and it is Wednesday. Place, she knows she is in the [facility] on the third floor. Person, she was oriented to person. Language function, spoken speech is basically fine given that she is from [facility]. Simple repetition was intact. She could not spell world backwards, but could spelt it forwards. CRANIAL NERVE EXAMINATION: CRANIAL NERVE II: Visual mueller can be determined. Fundi were not well visualized. CRANIAL NERVES III, IV, AND : Extraocular motility is full. No diplopia noted. Pupils are approximately 2.5 mm, round and light reactive. CRANIAL NERVE V: Corneal and facial sensations were intact. CRANIAL NERVE VII: Facial strength appeared to be 5/5. CRANIAL NERVE VIII: Auditory acuity was decreased to whisper, AD. CRANIAL NERVES IX AND X: Gag is intact. CRANIAL NERVE XI: Could not be tested. CRANIAL NERVE XII: Tongue protrudes in the midline without fasciculations or atrophy. MUSCULOSKELETAL: Muscle bulk is symmetrical and decreased. Tone is normal. Strength is probably 5/5 in the upper extremities. In the lower extremities, she had jerkiness when testing for muscle strength, but the peak strength is probably near 5/5. Reflexes were 0 in the upper extremities, 0 at the knees and ankles with downgoing toes and testing for Babinski response. There is a lot of jerkiness with testing reflexes. COORDINATION: Wsfsgx-gv-usde intact. Mrdt-il-cbzp testing sensory could not be done. SENSORY: Proprioception is normal. Pinprick and fine touch are decreased pinprick all the way up to the shoulder area. Fine touch is decreased, but I could not get a level. IMPRESSION: Assuming this patient does not have temporal arteritis, fibromyalgia, or viral infection, her cervical pain may be related to neural foraminal disease although it has to be determined. As far as mid back pain, mid back pain is seen in older patients frequently with cancer. Therefore, i will obtain MRI scan of her cervical spine and her thoracic spine. I do not think she is having any stroke at this time, although she does complain of numbness to the face. Her sensory examination is very difficult to interpret. PLAN: 1. MRI scan of the cervical spine and MRI scan of the thoracic spine with and without contrast. 2. Cover her pain. 3. Continue her Neurontin, to increase up to 1800mg if necessary. 4. Work up of anemia. 5. I will speak to you about this case. Thank you for this interesting case, Dr. Lundberg. Sky Ferro MD DR: WAGNER JOB#: [id number] CC: KADI
--- NOTE | 2018-09-15 11:45 | History and Physical Report ---
DATE OF ADMISSION: 09/13/2018 HISTORY OF PRESENT ILLNESS: The patient is being admitted for intractable neck pain. The patient also states that she has bilateral paresthesia of upper extremities and also has paresthesias in bilateral lower extremities, but she claims that upper extremity paresthesia is worse than lower extremity paresthesia for one day. Complains of chronic back pain and the patient also has mild pain in the lower extremities, very mild. The patient had a long time ago one back surgery and also has chronic lower extremity weakness and walks with a walker, which is chronic. The patient also localized weakness. PAST MEDICAL HISTORY: Significant for hyperlipidemia, hypertension, constipation, NIDDM, GERD, chronic pain syndrome, and chronic back pain. ALLERGIES: To codeine. MEDICATIONS: 1. Norvasc. 2. Lipitor. 3. Insulin. 4. Metformin. 5. Multivitamin. 6. Ranitidine. 7. Senokot. 8. Ultram p.r.n. FAMILY HISTORY: Noncontributory. SOCIAL HISTORY: No history of smoking, alcohol, or illicit drugs. REVIEW OF SYSTEMS: HEENT: Denies headaches. PULMONARY: Denies shortness of breath. Denies cough. CARDIOVASCULAR: Denies chest pain or orthopnea. GASTROINTESTINAL: Denies nausea, vomiting, or diarrhea. EXTREMITIES: The patient does have back pain . 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 Denies syncope. PHYSICAL EXAMINATION: VITAL SIGNS: Temperature is 98.5, pulse is 101, and blood pressure is 118/61. HEENT: PERRLA. NECK: Supple. No lymphadenopathy. CHEST: Clear to auscultation. CARDIOVASCULAR: Regular rate and rhythm. No murmurs or extra sounds. GASTROINTESTINAL: Soft, nontender, and nondistended. No organomegaly. EXTREMITIES: Moves all four extremities. NEUROLOGIC: Sensory intact to light touch. No motor weakness. No localized motor deficits. Sensory intact to light touch. Reflexes equal on both sides. LABORATORY DATA: WBC of 3.4, hemoglobin 9.7, and platelets of 198. Sodium 137, potassium 4.3, BUN of 20, creatinine 1.1, and glucose of 140. ASSESSMENT AND PLAN: Neuropathy, neck pain, low back pain, chronic and paresthesia. I have asked Dr. Ferro to see the patient to rule out any spinal cord injury. I have also asked Dr. Wili Hamilton to rule out any infectious etiology, Dr. Marte for pain management, and Dr. Grossman to help with azotemia. Maribel Lundberg M.D. DR: DONELL JOB#: [id number] CC:
--- NOTE | 2018-09-15 11:51 | NUR ---
MRI CERVICAL AND THORACIC SPINE W/WO CONTRAST COMPLETED.
[2018-09-15 12:00] VITALS: BP 111/52
--- NOTE | 2018-09-15 12:30 | NUR ---
NURSE NOTES: Patient sent down for MRI of Cervical/Thoracic Spine at 0940 [facility], medicated with Morphine Sulfate 4 mg IVP as ordered prior to MRI, patient stable, no respiratory distress noted. Returned to room at 1140 via [facility] in stable condition, bilateral SCDS applied, patient in high fowlers position. Call light in reach, will continue to monitor.
--- NOTE | 2018-09-15 14:06 | Diagnostic Imaging Report ---
Indication: Severe neck and back pain with numbness and heaviness to the lower legs Technique: Sagittal T1 fast spin echo, sagittal T2 FRFSE, sagittal STIR, axial T2 FRFSE, axial T1, pre and postcontrast axial and sagittal T1 fat saturated fast spin-echo images Comparison: none Findings: Bony alignment is normal. Vertebral body heights are preserved. Increased vertebral body marrow signal on the T1 and T2-weighted images with appropriate suppression on the fat saturated images indicates osteoporotic change. No focal marrow edema demonstrated. Intrinsic cord signal is normal. The lower cervical spine demonstrates cervical fusion hardware. The vertebral body heights are preserved at all levels. There is generalized disc desiccation noted. At T4-5, T7-8, and T8-9, there is minimal posterior disc protrusion which does not significantly narrow the spinal canal or neural foramina no significant disc bulge or protrusion, spinal stenosis, or neural foraminal stenosis. No unusual contrast enhancement is demonstrated. The included extraspinal soft tissues demonstrate a small right renal cyst. Impression: No acute or significant abnormality demonstrated. No evidence of neural impingement Minimal degenerative changes, as described Incidental finding of right renal cyst Postsurgical changes of the cervical spine, described on separate cervical CT scan
--- NOTE | 2018-09-15 14:10 | NUR ---
PT EVALUATION NOTE: Patient seen for initial evaluation. Patient presents with weakness all four extremities and impaired balance which affects patient's ability to transfer and ambulate. Patient will benefit from skilled inpatient PT intervention to address strength, balance, safety and functional mobility. Recommend SNF at discharge.
--- NOTE | 2018-09-15 14:33 | Diagnostic Imaging Report ---
Indication: Severe neck pain and back pain with numbness and heaviness to the lower legs Technique: Sagittal T1 FLAIR, sagittal STIR, axial and sagittal T2 FRFSE, axial 3-D COSMIC ASPIR, pre and postcontrast axial and sagittal T1 fat saturated images of the cervical spine Comparison: CT cervical spine dated 09/13/2017 Findings: As demonstrated on the prior CT scan, there is anterior fusion hardware bridging C4, C5, C6, and C7. This results in some susceptibility artifact which could obscure or exaggerated pathology. This also obscures the bone marrow signal within the vertebral bodies as well as the intervening disc signal at these levels. The remaining vertebral body signal is normal. The intrinsic cord signal is normal. The bony alignment is normal. The vertebral body heights are preserved. At C2-3, there is mild circumferential annular bulge, which does not significantly narrow the spinal canal or impinge upon the cord. Neural foraminal stenosis described on the recent CT is better appreciated on that exam, only appearing mild on the right on the current study. At C3-4, there is central posterior disc protrusion which results in mild narrowing of the spinal canal and mild impingement upon the anterior aspect of the cord. This is more apparent than on the prior CT. There is moderate neural foraminal stenosis bilaterally. At C4-5, there is posterior disc bulge/osteophyte complex as well as osteophytes below the disc level which results in mild narrowing of the spinal canal but no significant cord impingement. There is mild to moderate bilateral neural foraminal stenosis. At C5-6, there is an apparent left paracentral signal abnormality on the COSMIC ASPIR images which is less apparent on the axial T2-weighted images, not all apparent on the sagittal sequences or the pre and postcontrast T1-weighted images and therefore likely at least in part due to susceptibility artifact. There is also no definite equivalent abnormality on the recent CT. There is generalized circumferential annular bulge and posterior osteophyte complex, resulting in borderline spinal stenosis at this level. Neural foraminal stenoses at this level appear moderate, appear more striking on prior CT. At C6-7, there is posterior disc bulge/osteophyte complex which results in at least moderate narrowing of the spinal canal and some impingement upon the cord. This is more striking than on the recent CT. There is also suggestion of more focal right paracentral disc protrusion on the COSMIC ASPIR images, not confirmed on the other sequences, most likely artifactual. Mild to moderate right, moderate to severe left neural foraminal stenosis is noted at this level. At C7-T1, no significant disc bulge or protrusion, spinal stenosis, or neural foraminal stenosis. There is suggestion of enhancement of the soft tissues posterior to the C4 and C5 spinous processes on the post contrast axial and sagittal images. However, edema in this area is not definitely demonstrated on the T2-weighted sequences. No other significant enhancement is demonstrated Left upper pole thyroid nodule reported on recent CT is best demonstrated on the axial COSMIC ASPIR images as a low signal abnormality. The remaining included extraspinal soft tissues are unremarkable Impression: Multilevel spinal stenosis as detailed on a level by level basis above, appearing somewhat more severe on current exam than on previous Multilevel neural foraminal stenoses, as detailed on a level by level basis above Contrast enhancement in the soft tissues posterior to the C4 and C5 spinous processes. Significance uncertain as there is no definite evidence of edema on the T2-weighted images. However the possibility of ligamentous injury should be considered
[2018-09-15 16:00] VITALS: BP 98/62
--- NOTE | 2018-09-15 19:24 | NUR ---
CASE MANAGEMENT: INITIAL REVIEW 73 YO F CRIS FROM [facility] CC: NECK PAIN PMHx: NECK FUSION SURGERY SI:INTRACTABLE NECK PAIN. BACK PAIN. T 98.4 HR 103 RR 14 B/P 141/65 SATS 100% ON RA WBC 3.4 BUN 20 GLU 140 IS: MORPHINE IV X1 PATIENT ADMITTED TO MED/SURG 09/13/2018 @ 1824 DCP: PATIENT TO BE DISCHARGED TO SNF ONCE MEDICALLY CLEARED. PLAN OF CARE: PT EVAL Addendum: 09/17/18 at 0818 by Kari Goldman CM INTERQUAL MET FOR ACUTE- DL
--- NOTE | 2018-09-15 19:40 | NUR ---
HAND-OFF: Report given to Cornelius SLOAN.
[2018-09-15 20:00] VITALS: BP 109/48
--- NOTE | 2018-09-15 20:16 | NUR ---
NURSE NOTES: Received report from Evelia SLOAN. Pt A&O x4 laying semi-fowlers in bed. No signs of pain or distress. IV site dry & intact. Pt on RA. Call light in reach, bed in lowest position, side rails up x2. Will continue to monitor pt.
[2018-09-16] VITALS: BP 121/58
[2018-09-16] MEDS: HYDROcodone/Acetamin 10/325 tab ORAL PRN ×3 (00:50→17:53)
[2018-09-16 04:00] VITALS: BP 115/54
[2018-09-16] MEDS: NovoLOG Insulin Flexpen SUBQ SCH ×4 (06:30→20:53)
--- NOTE | 2018-09-16 07:49 | NUR ---
HAND-OFF: Report given to Juan Daniel SLOAN. Pt is stable.
--- NOTE | 2018-09-16 07:50 | NUR ---
NURSE NOTES: Patient lying in bed awake. Complain of pain 7/10 on neck. Will administer pain medication as ordered. On neck collar. Skin intact and dry. IV dressing intact and dry. Bed lowest position. Call light within reach. Will continue to monitor.
[2018-09-16 07:54] LABS: HEMATOCRIT 30.4 % (37.0-47.0); HEMOGLOBIN 9.7 G/DL (12.0-16.0); MEAN CORPUSCULAR VOLUME 85 FL (80-99); PLATELET COUNT 186 K/UL (150-450); RED BLOOD COUNT 3.58 M/UL (4.20-5.40); RED CELL DISTRIBUTION WIDTH 12.9 % (11.6-14.8); WHITE BLOOD COUNT 2.8 K/UL (4.8-10.8)
[2018-09-16 08:00] VITALS: BP 136/91
--- NOTE | 2018-09-16 09:14 | General Progress Note ---
Assessment/Plan Assessment/Plan (1) Lumbar and Cervical DDD (2) Lumbar and Cervical Spondylosis (3) Lumbar and Cervical Radiculopathy (4) H/O Cervical Fusion (5) H/O Lumbar Surgery (6) Cervical spinal Stenosis We will continue Bancroft and Neurontin, start Morphine 4mg IV Q6H PRN severe pain, robaxin 500mg PO 1 tab Q8H PRN muscle spasm and Lidoderm pacth. We recommend Neurosurgeon or spine surgeon consultation as per private duty lpn. D/w Dr. Marte and he concurred. Subjective Date patient seen: Sep 16, 2018 Time patient seen: 08:20 - am Allergies: Coded Allergies: CODEINE (Verified Allergy, Unknown, 09/13/18) Subjective REVIEW OF SYSTEMS: Denies rash, fever, chills, sweating, dizziness, drowsiness, blurred vision, sore throat, change in hearing. No shortness of breath or chest pain. No nausea, vomiting, diarrhea, or blood in the stool or urine. No dysuria. She is complaining of low back pain. SUBJECTIVE: Patient continues to c/o severe pain and is having minimal relief on the Bancroft. Has felt no change in pain with the increase of Neurontin. MRIs were reviewed. Objective Last 24 Hour Vital Signs Date Time Temp Pulse Resp B/P (MAP) Pulse Ox O2 Delivery O2 Flow Rate FiO2 09/16/18 04:00 97.6 92 18 115/54 (74) 99 09/16/18 00:00 98.2 82 18 121/58 (79) 98 09/15/18 21:00 Room Air 09/15/18 20:00 97.9 94 18 109/48 (68) 98 09/15/18 16:00 98.6 97 19 98/62 (74) 98 09/15/18 12:00 98.5 93 18 111/52 (71) 99 Intake and Output 09/15/18 09/16/18 19:00 07:00 Intake Total 120 ml 240 ml Output Total 400 ml Balance 120 ml -160 ml Intake Oral 120 ml 240 ml Output Urine Total 400 ml # Voids 1 1 Laboratory Tests 09/16/18 06:15: White Blood Count 2.8L, Red Blood Count 3.58L, Hemoglobin 9.7L, Hematocrit 30.4L , Mean Corpuscular Volume 85, Mean Corpuscular Hemoglobin 27.2, Mean Corpuscular Hemoglobin Concent 32.0, Red Cell Distribution Width 12.9, Platelet Count 186, Mean Platelet Volume 6.9, Neutrophils (%) (Auto) , Lymphocytes (%) ( Auto) , Monocytes (%) (Auto) , Eosinophils (%) (Auto) , Basophils (%) (Auto) , Neutrophils % (Manual) [Pending], Lymphocytes % (Manual) [Pending], Platelet Estimate [Pending], Platelet Morphology [Pending] Height (Feet): 5 Height (Inches): 4.00 Weight (Pounds): 130 Objective GENERAL: Alert, awake, and oriented. LUNGS: Clear bilaterally. HEART: S1 and S2 regular. ABDOMEN: Benign. EXTREMITIES: No cyanosis. No NEURO: No changes. Procedure: MRI C Spine w/wo Contrast Indication: Severe neck pain and back pain with numbness and heaviness to the lower legs Technique: Sagittal T1 FLAIR, sagittal STIR, axial and sagittal T2 FRFSE, axial 3-D COSMIC ASPIR, pre and postcontrast axial and sagittal T1 fat saturated images of the cervical spine Comparison: CT cervical spine dated 09/13/2017 Findings: As demonstrated on the prior CT scan, there is anterior fusion hardware bridging C4, C5, C6, and C7. This results in some susceptibility artifact which could obscure or exaggerated pathology. This also obscures the bone marrow signal within the vertebral bodies as well as the intervening disc signal at these levels. The remaining vertebral body signal is normal. The intrinsic cord signal is normal. The bony alignment is normal. The vertebral body heights are preserved. At C2-3, there is mild circumferential annular bulge, which does not significantly narrow the spinal canal or impinge upon the cord. Neural foraminal stenosis described on the recent CT is better appreciated on that exam, only appearing mild on the right on the current study. At C3-4, there is central posterior disc protrusion which results in mild narrowing of the spinal canal and mild impingement upon the anterior aspect of the cord. This is more apparent than on the prior CT. There is moderate neural foraminal stenosis bilaterally. At C4-5, there is posterior disc bulge/osteophyte complex as well as osteophytes below the disc level which results in mild narrowing of the spinal canal but no significant cord impingement. There is mild to moderate bilateral neural foraminal stenosis. At C5-6, there is an apparent left paracentral signal abnormality on the COSMIC ASPIR images which is less apparent on the axial T2-weighted images, not all apparent on the sagittal sequences or the pre and postcontrast T1-weighted images and therefore likely at least in part due to susceptibility artifact. There is also no definite equivalent abnormality on the recent CT. There is generalized circumferential annular bulge and posterior osteophyte complex, resulting in borderline spinal stenosis at this level. Neural foraminal stenoses at this level appear moderate, appear more striking on prior CT. At C6-7, there is posterior disc bulge/osteophyte complex which results in at least moderate narrowing of the spinal canal and some impingement upon the cord. This is more striking than on the recent CT. There is also suggestion of more focal right paracentral disc protrusion on the COSMIC ASPIR images, not confirmed on the other sequences, most likely artifactual. Mild to moderate right, moderate to severe left neural foraminal stenosis is noted at this level. At C7-T1, no significant disc bulge or protrusion, spinal stenosis, or neural foraminal stenosis. There is suggestion of enhancement of the soft tissues posterior to the C4 and C5 spinous processes on the post contrast axial and sagittal images. However, edema in this area is not definitely demonstrated on the T Procedure: MRI T Spine wo/w Contrast Indication: Severe neck and back pain with numbness and heaviness to the lower legs Technique: Sagittal T1 fast spin echo, sagittal T2 FRFSE, sagittal STIR, axial T2 FRFSE, axial T1, pre and postcontrast axial and sagittal T1 fat saturated fast spin-echo images Comparison: none Findings: Bony alignment is normal. Vertebral body heights are preserved. Increased vertebral body marrow signal on the T1 and T2-weighted images with appropriate suppression on the fat saturated images indicates osteoporotic change. No focal marrow edema demonstrated. Intrinsic cord signal is normal. The lower cervical spine demonstrates cervical fusion hardware. The vertebral body heights are preserved at all levels. There is generalized disc desiccation noted. At T4-5, T7-8, and T8-9, there is minimal posterior disc protrusion which does not significantly narrow the spinal canal or neural foramina no significant disc bulge or protrusion, spinal stenosis, or neural foraminal stenosis. Aris Sanderson Sep 16, 2018 09:14
[2018-09-16] MEDS ORDERED: Methocarbamol 500mg tab ORAL PRN (09:15)
--- NOTE | 2018-09-16 09:55 | NUR ---
NURSE NOTES: Spoke to Sonam from [facility] regarding VRE result. Patient positive for VRE rectum. Charge nurse and [employer] notified.
--- NOTE | 2018-09-16 10:55 | NUR ---
NURSE NOTES: Wili Noble notified regarding VRE result.
--- NOTE | 2018-09-16 10:55 | Infectious Diseases Prog Note ---
Assessment/Plan Assessment/Plan A; Leukopenia VRE colonization Cervical spinal stenosis Anemia P; Observe off antibiotic Subjective ROS Limited/Unobtainable: No Constitutional: Reports: no symptoms Respiratory: Reports: no symptoms Gastrointestinal/Abdominal: Reports: no symptoms Genitourinary: Reports: no symptoms Musculoskeletal: Reports: pain, other - neck Allergies: Coded Allergies: CODEINE (Verified Allergy, Unknown, 09/13/18) Objective Vital Signs Last 24 Hour Vital Signs Date Time Temp Pulse Resp B/P (MAP) Pulse Ox O2 Delivery O2 Flow Rate FiO2 09/16/18 09:00 Room Air 09/16/18 08:00 98.0 97 18 136/91 (106) 100 09/16/18 04:00 97.6 92 18 115/54 (74) 99 09/16/18 00:00 98.2 82 18 121/58 (79) 98 09/15/18 21:00 Room Air 09/15/18 20:00 97.9 94 18 109/48 (68) 98 09/15/18 16:00 98.6 97 19 98/62 (74) 98 09/15/18 12:00 98.5 93 18 111/52 (71) 99 Height (Feet): 5 Height (Inches): 4.00 Weight (Pounds): 130 General Appearance: no acute distress HEENT: mucous membranes moist Respiratory/Chest: lungs clear Cardiovascular: normal rate Abdomen: soft, non tender Extremities: no edema Neurologic/Psychiatric: alert, oriented x 3, responsive Musculoskeletal: atrophy Microbiology Date/Time Source Procedure Growth Status 09/13/18 19:30 Nasal Nares MRSA Culture - Final NO METHICILLIN RESISTANT STAPH AUREUS... Complete 09/13/18 19:30 Rectum VRE Culture - Final Enterococcus Faecalis - Vre Complete Laboratory Tests Test 09/16/18 06:15 White Blood Count 2.8 K/UL (4.8-10.8) L Red Blood Count 3.58 M/UL (4.20-5.40) L Hemoglobin 9.7 G/DL (12.0-16.0) L Hematocrit 30.4 % (37.0-47.0) L Mean Corpuscular Volume 85 FL (80-99) Mean Corpuscular Hemoglobin 27.2 PG (27.0-31.0) Mean Corpuscular Hemoglobin Concent 32.0 G/DL (32.0-36.0) Red Cell Distribution Width 12.9 % (11.6-14.8) Platelet Count 186 K/UL (150-450) Mean Platelet Volume 6.9 FL (6.5-10.1) Neutrophils (%) (Auto) % (45.0-75.0) Lymphocytes (%) (Auto) % (20.0-45.0) Monocytes (%) (Auto) % (1.0-10.0) Eosinophils (%) (Auto) % (0.0-3.0) Basophils (%) (Auto) % (0.0-2.0) Differential Total Cells Counted 100 Neutrophils % (Manual) 41 % (45-75) L Lymphocytes % (Manual) 44 % (20-45) Monocytes % (Manual) 13 % (1-10) H Eosinophils % (Manual) 2 % (0-3) Basophils % (Manual) 0 % (0-2) Band Neutrophils 0 % (0-8) Platelet Estimate Adequate Platelet Morphology Normal Current Medications Medications (Trade) Dose Ordered Sig/Bree Route PRN Reason Start Time Stop Time Status Last Admin Dose Admin Acetaminophen (Tylenol) 500 mg Q4H PRN ORAL Mild Pain/Temp > 100.5 09/13/18 22:00 10/13/18 21:59 Acetaminophen/ Hydrocodone Bitart ([place] 10/325) 1 tab Q4H PRN ORAL moderate pain 09/16/18 13:00 09/21/18 08:59 Dextrose (Dextrose 50%) 25 ml Q30M PRN IV Hypoglycemia 09/13/18 22:00 10/13/18 21:59 Dextrose (Dextrose 50%) 50 ml Q30M PRN IV Hypoglycemia 09/13/18 22:00 10/13/18 21:59 Gabapentin (Neurontin) 200 mg THREE TIMES A DAY ORAL 09/15/18 13:00 10/14/18 08:59 09/16/18 08:15 Gadobutrol (Gadavist) 7.5 mmol NOW PRN IV Radiology Procedure 09/14/18 18:30 09/18/18 18:30 Insulin Aspart (NovoLOG) BEFORE MEALS AND HS SUBQ 09/14/18 06:30 10/14/18 06:29 09/15/18 21:09 Lidocaine (Lidoderm 5% PATCH) 1 patch DAILY TDERMAL 2/15/19 09:15 10/16/18 09:14 09/16/18 10:12 Methocarbamol (Robaxin) 500 mg Q8H PRN ORAL muscle spasm 09/16/18 09:15 10/16/18 09:14 Morphine Sulfate (Morphine Sulfate) 4 mg Q6H PRN IVP severe pain 09/16/18 09:15 09/23/18 09:14 Ondansetron HCl (Zofran) 4 mg Q6H PRN IVP Nausea & Vomiting 09/13/18 22:00 10/13/18 21:59 09/15/18 13:00 Wili Hamilton MD Sep 16, 2018 10:55
[2018-09-16 12:00] VITALS: BP 131/69
--- NOTE | 2018-09-16 12:14 | General Progress Note ---
Assessment/Plan Problem List: (1) Paresthesias ICD Codes: R20.2 - Paresthesia of skin SNOMED: 14365594 (2) Intractable back pain ICD Codes: M54.9 - Dorsalgia, unspecified SNOMED: 203364309 (3) Anxiety ICD Codes: F41.9 - Anxiety disorder, unspecified SNOMED: 76965662 Status: progressing Assessment/Plan neck pain and bilat paresethsia is improving dr patel neurology is consulted to r/o spine pathology causing paresethsia no acute pathology Subjective ROS Limited/Unobtainable: Yes Allergies: Coded Allergies: CODEINE (Verified Allergy, Unknown, 09/13/18) Subjective neck pain and bilat ue and le paresthesia Objective Last 24 Hour Vital Signs Date Time Temp Pulse Resp B/P (MAP) Pulse Ox O2 Delivery O2 Flow Rate FiO2 09/16/18 09:00 Room Air 09/16/18 08:00 98.0 97 18 136/91 (106) 100 09/16/18 04:00 97.6 92 18 115/54 (74) 99 09/16/18 00:00 98.2 82 18 121/58 (79) 98 09/15/18 21:00 Room Air 09/15/18 20:00 97.9 94 18 109/48 (68) 98 09/15/18 16:00 98.6 97 19 98/62 (74) 98 Intake and Output 09/15/18 09/16/18 18:59 06:59 Intake Total 120 ml 240 ml Output Total 400 ml Balance 120 ml -160 ml Intake Oral 120 ml 240 ml Output Urine Total 400 ml # Voids 1 1 Laboratory Tests 09/16/18 06:15: White Blood Count 2.8L, Red Blood Count 3.58L, Hemoglobin 9.7L, Hematocrit 30.4L , Mean Corpuscular Volume 85, Mean Corpuscular Hemoglobin 27.2, Mean Corpuscular Hemoglobin Concent 32.0, Red Cell Distribution Width 12.9, Platelet Count 186, Mean Platelet Volume 6.9, Neutrophils (%) (Auto) , Lymphocytes (%) ( Auto) , Monocytes (%) (Auto) , Eosinophils (%) (Auto) , Basophils (%) (Auto) , Differential Total Cells Counted 100, Neutrophils % (Manual) 41L, Lymphocytes % (Manual) 44, Monocytes % (Manual) 13H, Eosinophils % (Manual) 2, Basophils % ( Manual) 0, Band Neutrophils 0, Platelet Estimate Adequate, Platelet Morphology Normal Height (Feet): 5 Height (Inches): 4.00 Weight (Pounds): 130 Cardiovascular: normal rate Respiratory/Chest: lungs clear Abdomen: soft Maribel Lundberg MD Sep 16, 2018 12:14
[2018-09-16] MEDS: Morphine Sulfate 4mg/ml Inj (IV USE ONLY) IVP PRN ×2 (12:26→21:05)
--- NOTE | 2018-09-16 13:30 | NUR ---
PT notes: attempted to see patient but patient was unavailable; first attempt; patient requested to be cleaned; second attempt; patient just started eating her lunch; will follow up later if time permits.
[2018-09-16 16:00] VITALS: BP 104/52
--- NOTE | 2018-09-16 19:15 | NUR ---
HAND-OFF: Patient transferred to and given report given to Cindy SLOAN. Patient in stable condition. Belonging checked with RN.
--- NOTE | 2018-09-16 19:16 | NUR ---
NURSE NOTES: Patient transferred from . No s/s of distress noted. A&OX4. C-collar on the neck noted. IV site patent and intact. Skin is intact. Belonging are checked. Bed in lowest position. Call light within reach. Will continue to monitor.
[2018-09-16 20:00] VITALS: BP 108/61
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
[2018-09-17] VITALS: BP 131/62
[2018-09-17 04:00] VITALS: BP 124/66
[2018-09-17] MEDS: NovoLOG Insulin Flexpen SUBQ SCH ×4 (06:14→21:30)
--- NOTE | 2018-09-17 07:15 | NUR ---
HAND-OFF: Report given to Christi SLOAN.
--- NOTE | 2018-09-17 07:30 | NUR ---
NURSE NOTES: Received patient AAO x4, No signs of pain or distress. HL patent,on RA. Call light in reach, on fall precaution observed and maintained, bed in lowest position, side rails up x2. Will continue to monitor pt .erendira vigil
[2018-09-17 08:00] VITALS: BP 115/56
[2018-09-17] MEDS: HYDROcodone/Acetamin 10/325 tab ORAL PRN ×2 (09:04→17:12)
--- NOTE | 2018-09-17 10:08 | NUR ---
DISCHARGE PLANNING: NOTE DC ORDER NOTED. CLINICALS FAXED TO [facility]. PATIENT ASSIGNED TO ROOM 101A. LIFELINE IS ON WILL CALL PENDING CLEARANCE FROM MDs. TRANSFER REPORT TO BE PROVIDED.
--- NOTE | 2018-09-17 12:12 | NUR ---
nurse notes unable to discharge needs to see by Dr Ferro, neuro erendira, rn
[2018-09-17 12:28] VITALS: BP 137/77
--- NOTE | 2018-09-17 12:30 | NUR ---
nurse notes paged and left message to Dr Marte if ok to discharge patient awaiting for his call musa krishna
--- NOTE | 2018-09-17 14:36 | NUR ---
nurse notes seen by Dr Ferro and Stated not today , ok to discharge sophia krishna rn
[2018-09-17 16:09] VITALS: BP 108/52
--- NOTE | 2018-09-17 18:56 | General Progress Note ---
Assessment/Plan Problem List: (1) Paresthesias ICD Codes: R20.2 - Paresthesia of skin SNOMED: 34652820 (2) Intractable back pain ICD Codes: M54.9 - Dorsalgia, unspecified SNOMED: 323958143 (3) Anxiety ICD Codes: F41.9 - Anxiety disorder, unspecified SNOMED: 07291808 Status: progressing Assessment/Plan neck pain and bilat paresethsia is improving dr patel neurology is consulted to r/o spine patholo dr patel wants to keep pt another day he increased neurontin will try dc in am dr figueredo is also on the case for pain mangement will need surgical eval as outpatient told that to pt and she understands there is no acute spinal cord injury/no cord compression Subjective Allergies: Coded Allergies: CODEINE (Verified Allergy, Unknown, 09/13/18) Subjective neck pain and bilat ue and le paresthesia Objective Last 24 Hour Vital Signs Date Time Temp Pulse Resp B/P (MAP) Pulse Ox O2 Delivery O2 Flow Rate FiO2 09/17/18 16:09 98.3 91 18 108/52 (70) 98 09/17/18 12:28 98.6 97 20 137/77 (97) 98 09/17/18 09:00 Room Air 09/17/18 08:00 97.9 97 18 115/56 (75) 98 09/17/18 04:00 98.0 86 18 124/66 (85) 98 09/17/18 00:00 97.7 88 18 131/62 (85) 99 09/16/18 21:00 Room Air 09/16/18 20:00 98.0 89 18 108/61 (77) 98 Intake and Output 09/16/18 09/17/18 19:00 07:00 Intake Total 400 ml 480 ml Balance 400 ml 480 ml Intake Oral 400 ml 480 ml # Voids 2 2 # Bowel Movements 2 Height (Feet): 5 Height (Inches): 4.00 Weight (Pounds): 130 Neck: supple Cardiovascular: normal rate Respiratory/Chest: lungs clear Abdomen: soft Maribel Lundberg MD Sep 17, 2018 18:56
--- NOTE | 2018-09-17 19:05 | NUR ---
HAND-OFF: Report given to NATHALIA Izaguirre, resting comfortably.
--- NOTE | 2018-09-17 19:05 | NUR ---
NURSE NOTES: Received patient on bed awake, neck collar in place. No s/s of any distress, denies pain as of this time. IV line patent and intact, bed in low position and locked, call light within reach, will continue to monitor.
[2018-09-17 20:00] VITALS: BP 120/52
[2018-09-18] VITALS: BP 98/53
--- NOTE | 2018-09-18 01:15 | Progress Note ---
DATE: 09/17/2018 SUBJECTIVE: The patient had the MRI scans of her cervical spine and thoracic spine. On the thoracic spine MRI, there were no evidence of cord lesions. In regard to the cervical spine MRI, revealed evidence of significant cord compression, although there was some mild impingement from the anterior aspect of the cord at C3-C4 and mild impingement on the cord at C6-C7. We also saw an enhancement of soft tissue posterior to the C4 and C5 spinous processes, post contrast; however, the patient notices of unknown significance. The patient now has significant neck pain, which is pretty much daily constant. Her Neurontin is increased to 200 mg p.o. t.i.d. The patient's pain may be mildly better, but it is not significantly better. PHYSICAL EXAMINATION: MENTAL STATUS: Her mental status is unchanged. Cranial nerves II through XII are basically intact. MUSCLE EXAMINATION: Muscle bulk symmetric and increased. Tone is normal to decreased. Strength is 5/5 in the upper extremities, at least 4+ to 5-/5 in lower extremities or a maximum of 5/5. Reflexes are 0 in the upper and lower extremities with downgoing toes when testing for Babinski response. COORDINATION: Apsoeb-rw-[id number] is intact. Gait and station, not tested. IMPRESSION: The patient needs pain management and we will increase her Neurontin to 300 mg p.o. t.i.d. The patient has some fluid in the posterior part of the neck and the patient has left paracentral signal abnormality on the COSMIC and SPR images, which is less apparent on the axial T2-weighted images. It is possibility, it could be a susceptibility weighted artifact. There is also contrast enhancement in soft tissues posterior to C4, C5, which may be related in the impression, but this could be related to C5-C6. I have to discuss this with the neuroradiologist. According to the report, the intrinsic cord signal is normal. Therefore, there was no cord lesion evident on MRI scan, which could explain her pain and that the pain may be related to her neck problem. PLAN: 1. Obtain the Pain Medicine consultation. 2. Increase Neurontin to 300 mg p.o. t.i.d. 3. I am discharging the patient at this time. Sky MD Pillo DR: BENITO JOB#: [id number] CC:
[2018-09-18] MEDS: Acetaminophen 500mg (ES) tab ORAL PRN ×2 (02:13→08:51)
[2018-09-18 04:00] VITALS: BP 120/59
--- NOTE | 2018-09-18 05:40 | NUR ---
NURSE NOTES: Patient is complaining of throbbing and stabbing pain in the head, tingling in the face and dizziness, she said she felt like her bed in rotating and she felt something funny in her head. MD notified , waiting for callback.
[2018-09-18] MEDS: NovoLOG Insulin Flexpen SUBQ SCH ×2 (06:00→12:21)
[2018-09-18] MEDS: HYDROcodone/Acetamin 10/325 tab ORAL PRN ×2 (06:12→14:38)
--- NOTE | 2018-09-18 07:17 | NUR ---
HAND-OFF: Report given to Khadijah SLOAN.
--- NOTE | 2018-09-18 07:30 | NUR ---
NURSE NOTES: Received patient in bed awake, alert , No signs of pain or distress. HL patent,on RA. Call light in reach, on fall precaution observed and maintained, bed in lowest position, side rails up x2. Will continue to monitor kirsten araujo rn
[2018-09-18 08:00] VITALS: BP 134/54
--- NOTE | 2018-09-18 09:42 | NUR ---
NURSE NOTES Dr Lundberg called with order noted and carried out, called and left message Dr Marte tel [phone] if ok to discharge patient/clearance to be discharge awaiting for his call erendira
[2018-09-18] MEDS: Morphine Sulfate 4mg/ml Inj (IV USE ONLY) IVP PRN (11:06)
--- NOTE | 2018-09-18 11:27 | General Progress Note ---
Assessment/Plan Assessment/Plan (1) Lumbar and Cervical DDD (2) Lumbar and Cervical Spondylosis (3) Lumbar and Cervical Radiculopathy (4) H/O Cervical Fusion (5) H/O Lumbar Surgery (6) Cervical spinal Stenosis We will continue robaxin [place] Morphine Lidoderm patch and Neurontin. At this time Dr. Marte feels the patient will be able to be discharged on [place] 10/325mg PO 1 tab Q4H PRN to SNF as per cnc grinder, which and RX was sent to SNF pharmacy. She was advised to f/u with her Neurosurgeon who performed surgery to review MRI results for any further treatment options. If pain is not controlled she was advised to f/u with our office. She seems to understand. D/w Dr. Marte and he concurred. Subjective Date patient seen: Sep 18, 2018 Time patient seen: 11:00 - am Allergies: Coded Allergies: CODEINE (Verified Allergy, Unknown, 09/13/18) Subjective REVIEW OF SYSTEMS: Denies rash, fever, chills, sweating, dizziness, drowsiness, blurred vision, sore throat, change in hearing. No shortness of breath or chest pain. No nausea, vomiting, diarrhea, or blood in the stool or urine. No dysuria. She is complaining of Neck and low back pain. SUBJECTIVE: Patient is now more cooperative and communicative. She reports that on November 25, 2017 she was in a building and while seating on a bench the bench broke and that is what caused her neck pain. Patient subsequently had gone to [facility] for the cervical fusion. At this time has only used 3 [place] pills in the last 24hrs and states that it reduces her pain from a 8/10--->6/10 for four to six hours. Her Neurontin was also increased to 300mg. Patient was seen by Dr. Marte who reviewed the MRI and advised patient to f/u with her surgeon to review the MRIs. Objective Last 24 Hour Vital Signs Date Time Temp Pulse Resp B/P (MAP) Pulse Ox O2 Delivery O2 Flow Rate FiO2 09/18/18 08:35 Room Air 09/18/18 08:00 96.3 97 17 134/54 (80) 97 09/18/18 04:00 97.8 95 17 120/59 (79) 99 09/18/18 00:00 99.3 68 19 98/53 (68) 98 09/17/18 21:00 Room Air 09/17/18 20:00 99.0 91 19 120/52 (74) 97 09/17/18 16:09 98.3 91 18 108/52 (70) 98 09/17/18 12:28 98.6 97 20 137/77 (97) 98 Intake and Output 09/17/18 09/18/18 19:00 07:00 Intake Total 600 ml Balance 600 ml Intake Oral 600 ml # Voids 2 # Bowel Movements 1 1 Height (Feet): 5 Height (Inches): 4.00 Weight (Pounds): 130 Objective GENERAL: Alert, awake, and oriented. LUNGS: Clear bilaterally. HEART: S1 and S2 regular. ABDOMEN: Benign. EXTREMITIES: No cyanosis. No NEURO: No changes. Aris Sanderson Sep 18, 2018 11:27
[2018-09-18 12:00] VITALS: BP 137/67
--- NOTE | 2018-09-18 13:44 | General Progress Note ---
Assessment/Plan Problem List: (1) Paresthesias ICD Codes: R20.2 - Paresthesia of skin SNOMED: 91828950 (2) Intractable back pain ICD Codes: M54.9 - Dorsalgia, unspecified SNOMED: 681350677 (3) Anxiety ICD Codes: F41.9 - Anxiety disorder, unspecified SNOMED: 66418297 Status: progressing Assessment/Plan dr figueredo and dr patel both cleared her for dc dr figueredo provided triplicate when went to room she was not at pain at all and was resting quietly i told her that she dosent meet criteria for stay and needs to be dc w phuong as witness and to f/u w spine surgeon as outpatient as well as pain managment Subjective ROS Limited/Unobtainable: Yes Allergies: Coded Allergies: CODEINE (Verified Allergy, Unknown, 09/13/18) Subjective neck pain and bilat ue and le paresthesia Objective Last 24 Hour Vital Signs Date Time Temp Pulse Resp B/P (MAP) Pulse Ox O2 Delivery O2 Flow Rate FiO2 09/18/18 12:00 97.2 83 15 137/67 (90) 97 09/18/18 08:35 Room Air 09/18/18 08:00 96.3 97 17 134/54 (80) 97 09/18/18 04:00 97.8 95 17 120/59 (79) 99 09/18/18 00:00 99.3 68 19 98/53 (68) 98 09/17/18 21:00 Room Air 09/17/18 20:00 99.0 91 19 120/52 (74) 97 09/17/18 16:09 98.3 91 18 108/52 (70) 98 Intake and Output 09/17/18 09/18/18 19:00 07:00 Intake Total 600 ml Balance 600 ml Intake Oral 600 ml # Voids 2 # Bowel Movements 1 1 Height (Feet): 5 Height (Inches): 4.00 Weight (Pounds): 130 Neck: supple Cardiovascular: normal rate Respiratory/Chest: lungs clear Maribel Lundberg MD Sep 18, 2018 13:44
[2018-09-18] MEDS ORDERED: NORCO 10/3251 EA ORAL (14:02)
[2018-09-18] MEDS ORDERED: NEURONTIN100 MG ORAL (14:02)
[2018-09-18] MEDS ORDERED: ACETAMINOPHEN325 M1 ORAL (14:04)
[2018-09-18] MEDS ORDERED: METHOCARBAMOL500 M1 PO (14:05)
--- NOTE | 2018-09-18 14:56 | NUR ---
nurse notes discharge SNF obtained, patient made aware regarding plan of care, report given to Alex Alfonso RN accordingly musa rico
[2018-09-18 16:04] VITALS: BP 132/72
--- NOTE | 2018-09-18 16:35 | NUR ---
nurse notes discharge in stable condition with all belongings taken accompanied by ambulance personnel,report given accordingly, discharge via ambulance musa krishna
--- NOTE | 2018-09-20 11:52 | Discharge Summary ---
Discharge Summary Discharge Summary _ DATE OF ADMISSION: 09/13/2018 DATE OF DISCHARGE: 09/18/2018 DISCHARGED BY: Dr Lundberg REASON FOR ADMISSION: 73 years old female with past medical history of hypertension, diabetes, hyperlipidemia, anxiety, presented to emergency department for neck pain and numbness. Patient reported fall in October. Patient had chronic brace at that time. Patient reported increased neck pain and started having numbness throughout her body. She denied chest pain. Patient was given [place] [facility], but she still reported significant pain in her neck. Pain rated 5 out of 10 , nonradiating and constant , no recent trauma. Patient denied fever , chills, chest pain ,palpitations, nausea , vomiting , abdominal pain, shortness of breath , depression , visual changes. Upon evaluation vital signs revealed mild tachycardia, otherwise stable. Laboratory workup revealed leukopenia WBC 3.4, hemoglobin 9.7, hematocrit 30.8, stable electrolytes. BUN 20 creatinine 1.1. Glucose 140. Stable LFT. ESR elevated at 55. EKG revealed no acute ischemic changes. Chest x-ray revealed no acute cardiopulmonary pathology. CT of the head revealed chronic age-related changes, but was negative for acute intracranial pathology. Cervical spine CT scan showed evidence of anterior cervical fusion. Appeared to be successful ankylosis of the fused disc segments. Degenerative changes noted. Patient was admitted for further management for intractable neck pain CONSULTANTS: neurologist Dr. Ferro ID specialist Dr. Henriquez pain specialist Dr. Marte [facility] COURSE: Patient admitted to medical surgical floor. Neurology consult was requested. Patient subsequently undergone MRI scan of the cervical and thoracic spine. MRI of the cervical spine revealed multilevel neural foraminal stenosis along with contrast enhancement in the soft tissue posterior to the C4 and C5 spinous. Significance uncertain , but could possibly be indicative of ligamentous injury No evidence of cord lesion on MRI scan.. MRI of thoracic spine revealed minimal degenerative changes. No acute or significant abnormality demonstrated , no evidence of neural impingement. Neck pain was likely due to multilevel spinal stenosis, demonstrated by MRI scan. Pain management was addressed. Pain specialist closely followed. Analgesic regimen was titrated to bring pain under control. Infectious disease specialist closely followed. Laboratory workup demonstrated leukopenia , but no evidence of infection. No fevers. Infectious disease doctor recommended to keep patient off antibiotics. Hemoglobin and hematocrit were closely monitored with goal to keep hemoglobin above 7. Prior to discharge hemoglobin 9.7, hematocrit 30.4. Blood sugar was managed with sliding scale of insulin. Patient was provided with diabetic diet. Blood sugar remained stable. Blood pressure was closely monitored and remained stable, no need for antihypertensive medication. Bowel regimen instituted. Supportive care provided. Pain was controlled with current regimen. Patient stabilized and was ready for [facility] to [facility] for [facility] of care. FINAL DIAGNOSES: Cervical spine stenosis Lumbar and cervical DDD Lumbar and cervical spondylosis Lumbar and cervical radiculopathy History of cervical fusion Anemia Leukopenia Anxiety disorder DISCHARGE MEDICATIONS: See Medication Reconciliation list. DISCHARGE INSTRUCTIONS: [facility] to [facility] facility. Follow up with medical doctor at the facility. I have been assigned to dictate discharge summary for this account. I was not involved in the patient's management. Sally Ferro NP Sep 20, 2018 11:52
== END 2018-09-18 16:30 | DRG 552 ==
LOC: EDBD 13:49 → EDBEDREQ 16:38 → EMR 17:52 → EDBEDREQ 18:19 → 3E 18:24 → 4E 09-16 19:15
DX: M50.10 Cervical disc disorder with radiculopathy, unspecified cervical region (principal); M48.02 Spinal stenosis, cervical region; M51.16 Intervertebral disc disorders with radiculopathy, lumbar region; M47.892 Other spondylosis, cervical region; M47.896 Other spondylosis, lumbar region; E11.9 Type 2 diabetes mellitus without complications; Z79.4 Long term (current) use of insulin; Z98.1 Arthrodesis status; D64.9 Anemia, unspecified; F41.9 Anxiety disorder, unspecified; E78.5 Hyperlipidemia, unspecified; Z88.6 Allergy status to analgesic agent; I10 Essential (primary) hypertension; K59.09 Other constipation; R20.2 Paresthesia of skin
CPT/HCPCS: 36415; 70450; 71045; 72020; 72125; 72156; 72157; 80053; 82962; 85007; 85025; 85610; 85651; 85730; 86140; 87081; 96374; 96375; 96376; 99285; A9585; J1815; J2405

== ENCOUNTER 2019-01-17 02:29 | Inpatient (IN) | payer MEDICARE, OTHER ==
[~2019-01-17] VITALS: Ht 172.7 cm; Wt 44.0 kg
[~2019-01-17 02:29] MED LIST: ACETAMINOPHEN325 M1 ORAL; DOCUSATE SODIU100 MG ORAL; HUMALOG100 UNIT/4; LACTULOSE20 GM/301 ORAL; LIPITOR10 MG ORAL; MAGNESIUM CITR100 MG PO; MAGNESIUM OXID400 M2 PO; METFORMIN HCL1000 M1 ORAL; METFORMIN HCL500 M1 ORAL; METHOCARBAMOL500 M1 PO; MIRALAX17 G2 ORAL; MULTIVITAMINS1 EAC8 ORAL; NEURONTIN100 MG ORAL; NORCO 10/3251 EA ORAL; NORCO 5-325 TA1 EACH ORAL; NORVASC2.5 MG ORAL; PROMETHAZINE-D118 ML ORAL; SENNA8.6 M2 PO; SORE THROAT LO1 EAC1 MM; SORE THROAT LO1 EAC3 MM; TRAMADOL HCL50 MG ORAL; VITAMIN D1000 UNI1 ORAL; ZANTAC150 MG ORAL; ZOFRAN4 M3 ORAL
[2019-01-17] MEDS ORDERED: Morphine Sulfate 4mg/ml Inj (IV USE ONLY) IVP ONE ×2 (02:45→04:45)
--- NOTE | 2019-01-17 03:00 | NUR ---
ED Nurse Note: RECIEVED PT BIBA FROM SNF WITH C/O SEVERE UPPER NECK AND BACK PAIN AT 10/10 FOR 3 DAYS, PT WAS REOLEASED FROM HOSPITAL 5 DAYS GO S/P SPINAL FUSION, PT IS WEARING CERVICAL COLLAR, PT DENIES CP, SOB, OR ANY OTHER COMPLAITNS, PT IS CRYING AND VERY IRRITABLE, PT PLACED ON CARDIAC MONITORING, WILLR ESUME CARE ORDERED.
--- NOTE | 2019-01-17 03:04 | Emergency Room Report ---
History of Present Illness General Chief Complaint: Pain Source: Patient, Medical Record Present Illness HPI Patient presents with complaints of neck pain Patient reports that she has been having problems with her neck for several months review of medical records reveals multiple imaging including MRIs In September for similar complaint denies any weakness in her arms denies any chest pain or shortness of breath Patient reports that she was given a Venus with minimal improvement denies any other recent trauma There was a question of possible recent surgery however patient cannot confirm that Allergies: Coded Allergies: CODEINE (Verified Allergy, Unknown, 01/17/19) Patient History Past Medical History: see triage record Pertinent Family History: none Now: No Reviewed Nursing Documentation: PMH: Agreed; PSxH: Agreed Nursing Documentation-PMH Hx Hypertension: Yes - hyperlipidemia Hx Diabetes: Yes - TYPE 2 Hx Cancer: No Hx Gastrointestinal Problems: No Hx Numbness: Yes - bilateral distal extremtities Review of Systems All Other Systems: negative except mentioned in HPI Physical Exam Vital Signs Date Time Temp Pulse Resp B/P (MAP) Pulse Ox O2 Delivery O2 Flow Rate FiO2 01/17/19 02:35 98.1 98 16 147/69 (95) 98 Room Air Sp02 EP Interpretation: reviewed, normal General Appearance: moderate distress - In acute pain Head: normocephalic, atraumatic Eyes: bilateral eye PERRL, bilateral eye EOMI ENT: hearing grossly normal, normal pharynx, TMs + canals normal, uvula midline Neck: no meningismus, no bony tend, other - Patient has c-collar in place no obvious midline step-offs Respiratory: lungs clear, normal breath sounds, no rhonchi, no respiratory distress, no retraction, no accessory muscle use Cardiovascular #1: normal peripheral pulses, regular rate, rhythm, no edema, no gallop, no JVD, no murmur Gastrointestinal: normal bowel sounds, non tender, soft, no mass, no organomegaly, non-distended, no guarding, no hernia, no pulsatile mass, no rebound Genitourinary: no CVA tenderness Musculoskeletal: normal inspection Neurologic: oriented x3, responsive, syrup filterer III-XII nml as tested, motor strength/ tone normal, sensory intact Psychiatric: mood/affect normal Skin: normal color, no rash, warm/dry, palpation normal Lymphatic: normal inspection, no adenopathy Medical Decision Making Diagnostic Impression: Primary Impression: Intractable back pain Additional Impression: Dysphagia ER Course Multiple differentials and consideration including but not limited to Neurological, neurosurgical muscular skeletal pathology patient CT imaging does not show any obvious acute pathology patient's examination does not reveal any stridor She has done better with acute intervention and pain medication and will require further inpatient care Labs Test 01/17/19 03:03 White Blood Count 4.3 K/UL (4.8-10.8) Red Blood Count 3.61 M/UL (4.20-5.40) Hemoglobin 9.7 G/DL (12.0-16.0) Hematocrit 29.7 % (37.0-47.0) Mean Corpuscular Volume 82 FL (80-99) Mean Corpuscular Hemoglobin 26.7 PG (27.0-31.0) Mean Corpuscular Hemoglobin Concent 32.5 G/DL (32.0-36.0) Red Cell Distribution Width 12.6 % (11.6-14.8) Platelet Count 189 K/UL (150-450) Mean Platelet Volume 6.1 FL (6.5-10.1) Neutrophils (%) (Auto) 43.7 % (45.0-75.0) Lymphocytes (%) (Auto) 49.1 % (20.0-45.0) Monocytes (%) (Auto) 5.4 % (1.0-10.0) Eosinophils (%) (Auto) 0.6 % (0.0-3.0) Basophils (%) (Auto) 1.2 % (0.0-2.0) Sodium Level 138 MMOL/L (136-145) Potassium Level 3.8 MMOL/L (3.5-5.1) Chloride Level 99 MMOL/L (98-107) Carbon Dioxide Level 24 MMOL/L (21-32) Anion Gap 15 mmol/L (5-15) Blood Urea Nitrogen 18 mg/dL (7-18) Creatinine 1.1 MG/DL (0.55-1.30) Estimat Glomerular Filtration Rate mL/min (>60) Glucose Level 98 MG/DL (74-106) Calcium Level 10.2 MG/DL (8.5-10.1) Total Bilirubin 0.4 MG/DL (0.2-1.0) Aspartate Amino Transf (AST/SGOT) 24 U/L (15-37) Alanine Aminotransferase (ALT/SGPT) 28 U/L (12-78) Alkaline Phosphatase 60 U/L (46-116) Total Creatine Kinase 58 U/L (26-308) Creatine Kinase MB 0.9 NG/ML (0.0-3.6) Creatine Kinase MB Relative Index 1.5 Troponin I 0.000 ng/mL (0.000-0.056) Total Protein 7.5 G/DL (6.4-8.2) Albumin 4.7 G/DL (3.4-5.0) Globulin 2.8 g/dL Albumin/Globulin Ratio 1.7 (1.0-2.7) Rhythm Strip Diag. Results EP Interpretation: yes Rate: 80 Rhythm: NSR, no PVC's, no ectopy Chest X-Ray Diagnostic Results Chest X-Ray Diagnostic Results : Chest X-Ray Ordered: Yes # of Views/Limited/Complete: 1 View Indication: Chest Pain EP Interpretation: Yes Interpretation: no consolidation, no effusion, no pneumothorax Impression: No acute disease Electronically Signed by: Maribel Moreno DO CT/MRI/US Diagnostic Results CT/MRI/US Diagnostic Results : Impression CT head nad CT C-spineImpression: Postsurgical changes, as described Degenerative changes as detailed on a level by level basis above, unchanged from 09/13/2018. No acute bony trauma. Last Vital Signs Date Time Temp Pulse Resp B/P (MAP) Pulse Ox O2 Delivery O2 Flow Rate FiO2 01/17/19 02:35 98.1 98 16 147/69 (95) 98 Room Air Status: improved Disposition: ADMITTED INPATIENT Condition: Serious Maribel Moreno DO Jan 17, 2019 03:03
[2019-01-17 03:16] LABS: BASOPHILS % (AUTO) 1.2 % (0.0-2.0); EOSINOPHILS % (AUTO) 0.6 % (0.0-3.0); HEMATOCRIT 29.7 % (37.0-47.0); HEMOGLOBIN 9.7 G/DL (12.0-16.0); LYMPHOCYTES % (AUTO) 49.1 % (20.0-45.0); MEAN CORPUSCULAR VOLUME 82 FL (80-99); MONOCYTES % (AUTO) 5.4 % (1.0-10.0); NEUTROPHILS % (AUTO) 43.7 % (45.0-75.0); PLATELET COUNT 189 K/UL (150-450); RED BLOOD COUNT 3.61 M/UL (4.20-5.40); RED CELL DISTRIBUTION WIDTH 12.6 % (11.6-14.8); WHITE BLOOD COUNT 4.3 K/UL (4.8-10.8)
[2019-01-17 03:29] LABS: ANION GAP 15 mmol/L (5-15); BLOOD UREA NITROGEN 18 mg/dL (7-18); CALCIUM 10.2 MG/DL (8.5-10.1); CARBON DIOXIDE 24 MMOL/L (21-32); CHLORIDE 99 MMOL/L (98-107); CREATININE 1.1 MG/DL (0.55-1.30); POTASSIUM 3.8 MMOL/L (3.5-5.1); SODIUM 138 MMOL/L (136-145)
[2019-01-17 03:30] VITALS: BP 141/73
[2019-01-17 03:41] LABS: ALANINE AMINOTRANSFERASE 28 U/L (12-78); ALBUMIN 4.7 G/DL (3.4-5.0); ALBUMIN/GLOBULIN RATIO 1.7 (1.0-2.7); ALKALINE PHOSPHATASE 60 U/L (46-116); ASPARTATE AMINO TRANSFERASE 24 U/L (15-37); BILIRUBIN,TOTAL 0.4 MG/DL (0.2-1.0); CKMB 0.9 NG/ML (0.0-3.6); CREATINE KINASE 58 U/L (26-308)
--- NOTE | 2019-01-17 04:35 | NUR ---
ED Nurse Note: PT HAS ROOM FOR ADMISSION, REPORT CALLED TO FLOOR NURSE, PT CONTINUES TO C/O PAIN AT 7/10 AND CRYING, MD INFORMED, PT RE-MEDICATED WITH MORPHINE, IV SITE PATENT, BELONGINGS LIST COMPLETED AND MED REC, PT BEING TAKEN TO FLOOR BED VIA GURNEY AND ACLS PROTOCOLS, NAD NOTED DURING PT TRANSPORT.
[2019-01-17 05:26] VITALS: BP 152/66
--- NOTE | 2019-01-17 06:37 | NUR ---
NURSE NOTES: Admitted a 73 year old female, alert and oriented x4, in pain of 8/10 around the neck area. Was medicated in ER before of transfer. Oriented to the room. Instructed the use of call light. Call light within reach. Bed in lowest position, lock engaged and alarm on. Called Dr. Kingston at [phone] for admission orders. Waiting for call back.
--- NOTE | 2019-01-17 06:56 | NUR ---
NURSE NOTES: Dr. Kingston was paged for the 2nd time. Waiting for call back.
[2019-01-17] MEDS ORDERED: HYDROcodone/Acetamin 5/325 tab ORAL PRN (07:15)
[2019-01-17] MEDS ORDERED: Magnesium Citrate Liq Btl ORAL PRN (07:15)
[2019-01-17] MEDS ORDERED: Methocarbamol 500mg tab ORAL PRN (07:15)
[2019-01-17] MEDS ORDERED: Acetaminophen 500mg (ES) tab ORAL PRN (07:15)
[2019-01-17] MEDS ORDERED: Lactulose 20gm/30ml UDC ORAL PRN (07:15)
--- NOTE | 2019-01-17 07:35 | NUR ---
HAND-OFF: Report given to NATHALIA Pérez. Spoke with Dr. Kingston, orders obtained.
[2019-01-17 08:00] VITALS: BP 148/80
[2019-01-17] MEDS ORDERED: 1/2NS w/KCl 20mEq 1000ml 1,000 ML IV SCH (08:30)
[2019-01-17] MEDS: Docusate 100mg cap ORAL SCH ×2 (09:41→17:26)
[2019-01-17] MEDS: Vitamin D 1000 IU Tab ORAL SCH (09:42)
[2019-01-17] MEDS: Magnesium Oxide 400mg tab ORAL SCH (09:42)
[2019-01-17] MEDS: metFORMIN 500mg tab ORAL SCH ×2 (09:42→17:26)
[2019-01-17] MEDS: Multivitamin w/Minerals tab ORAL SCH (09:42)
[2019-01-17] MEDS: Heparin 5000 units/ml inj SUBQ SCH ×2 (09:59→21:37)
[2019-01-17 12:00] VITALS: BP 148/75
[2019-01-17] MEDS: NovoLOG Insulin Flexpen SUBQ SCH ×3 (12:11→21:00)
--- NOTE | 2019-01-17 12:39 | Diagnostic Imaging Report ---
Indication: Neck and head pain for 2 days Technique: Spiral acquisitions obtained through the cervical spine. No IV contrast utilized. Multiplanar reconstructions were generated. Total dose length product 238.72 mGycm. CTDIvol(s) 11.88 mGy. Dose reduction achieved using automated exposure control. Comparison: 09/13/2018 Findings: Again demonstrated is anterior fusion hardware fusing C4, C5, C6, C7. Hardware appears to be intact. There appears to be ankylosis of the intervening discs. There also appears to be ankylosis of the C2-3 and C4-5 posterior elements on the right No acute fractures. No dislocations. Bony alignment is normal. No prevertebral soft tissue swelling. At C2-3, there is moderate narrowing the right neural foramen, also previously demonstrated. The disc spaces preserved. C3-4, posterior disc bulge/osteophyte complex results in borderline narrowing of the spinal canal. There is moderate narrowing of the bilateral neural foramina. At C4-5, posterior osteophytes on the right result in borderline narrowing of the right side of the spinal canal. There is minimal bilateral neural foraminal stenosis. At C5-6, posterior osteophytes result in borderline narrowing of the right side of the spinal canal. There is severe right and moderate left neural foraminal stenosis again demonstrated. At C6-7, posterior osteophytes result in mild narrowing of the spinal canal. There is mild bilateral neural foraminal stenosis again demonstrated. At C7-T1, no significant disc bulge or protrusion, spinal stenosis, or neural foraminal stenosis. The included lung apices are clear. The included extraspinal soft tissues are unremarkable except for a stable calcified nodule in the left thyroid lobe. Findings are unchanged from the previous study Impression: Postsurgical changes, as described Degenerative changes as detailed on a level by level basis above, unchanged from 09/13/2018. No acute bony trauma. This agrees with the preliminary interpretation provided overnight by [facility] teleradiology service. The CT scanner at [facility] is accredited by the [employer] and the scans are performed using protocols designed to limit radiation exposure to as low as reasonably achievable to attain images of sufficient resolution adequate for diagnostic evaluation.
--- NOTE | 2019-01-17 12:43 | Diagnostic Imaging Report ---
Indication: Headache and neck pain for 2 days Technique: spiral acquisitions obtained through the brain. Angled axial and coronal 5 x 5 mm slices were reconstructed. No IV contrast utilized. Radiation dose was minimized using automated exposure control Total dose length product 1397.17 mGycm. CTDIvol(s) 70.38 mGy Comparison: September 13, 2018 FINDINGS: No acute hemorrhage or edema. No mass effect or midline shift. There is age-related enlargement of the ventricles and extra axial CSF spaces. There is periventricular deep white matter ischemic change. Normal aguilar-white differentiation. Visualized orbits are unremarkable. Visualized sinuses are unremarkable. Intact calvarium. No significant interim change IMPRESSION: Chronic and age-related changes. Negative for acute intracranial bleed or mass effect This agrees with the preliminary interpretation provided overnight by [facility] teleradiology service. The CT scanner at [facility] is accredited by the [employer] and the scans are performed using protocols designed to limit radiation exposure to as low as reasonably achievable to attain images of sufficient resolution adequate for diagnostic evaluation
--- NOTE | 2019-01-17 12:56 | NUR ---
NURSE NOTES: DR MARKS MADE AWARE PT HAVING PAIN WHEN SWALLOWING, UNABLE TO TAKE PO MEDICATIONS OR FOOD. MD WITH ORDER FOR SPEECH EVAL. RN ASKED MD IF HE WOULD LIKE TO SWITCH IVF. PER MD, HE WILL CHECK THE CHART AND ORDER IF NECESSARY. WILL CONTINUE TO MONITOR.
--- NOTE | 2019-01-17 13:34 | NUR ---
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
[2019-01-17 16:00] VITALS: BP 147/70
--- NOTE | 2019-01-17 16:02 | Cardiology Report ---
APPROVED REPORT EKG Measurement Heart [id number] Sinus tachycardia Otherwise normal ECG
--- NOTE | 2019-01-17 16:39 | Diagnostic Imaging Report ---
Indication: Chest pain Technique: One view of the chest Comparison: 09/13/2018 Findings: Lungs and pleural spaces are clear. The heart size is normal. There is evidence of prior spinal fusion surgery in the cervical spine Impression: No acute process
[2019-01-17] MEDS: D5 1/2NS w/KCl 20mEq 1,000 ML IV SCH (17:27)
--- NOTE | 2019-01-17 17:30 | History and Physical Report ---
DATE OF ADMISSION: 01/17/2019 CHIEF COMPLAINT: Odynophagia, dysphagia, and generalized pain. HISTORY OF PRESENT ILLNESS: This is a 73-year-old female from a alf, who was admitted during the night with severe neck pain, inability to swallow, and painful swallowing. The patient is rather a poor historian. PAST MEDICAL HISTORY: 1. Status post spinal fusion. 2. Muscle weakness secondary to the above. 3. Type 2 diabetes mellitus. 4. Hypertensive cardiovascular disease. MEDICATIONS: Tylenol p.r.n., Norvasc, atorvastatin, sore throat lozenges, vitamin D3, promethazine syrup, sodium docusate p.r.n., Neurontin, [place] p.r.n., Humalog sliding scale, lactulose, magnesium citrate p.r.n., magnesium oxide, metformin, methocarbamol, multivitamin, Zofran p.r.n., MiraLAX, Zantac, senna, and tramadol. ALLERGIES: Codeine. FAMILY HISTORY: Unremarkable. SOCIAL HISTORY: She lives in a alf. HABITS: She is nonsmoker and nondrinker. There is no history of illicit drug abuse. REVIEW OF SYSTEMS: HEENT: Hearing and eyesight are normal. ENDOCRINE: Significant for type 2 diabetes mellitus. RESPIRATORY: She denies shortness of breath, cough, or hemoptysis. CARDIOVASCULAR: Denies chest pain or palpitations. GASTROINTESTINAL: No history of hematochezia, melena, hematemesis, diarrhea, or constipation. NEUROLOGIC: She has advanced muscle weakness. PHYSICAL EXAMINATION: GENERAL: This is an elderly female, who is cachectic. VITAL SIGNS: Blood pressure 152/66, pulse 99 regular, respirations 20, and temperature 97.1. HEENT: The head is normocephalic and atraumatic. Pupils are equal, round, and reactive to light and accommodation consensually. NECK: Supple. Trachea midline. There was no lymphadenopathy or thyromegaly. LUNGS: Clear to auscultation and percussion. HEART: Regular rate and rhythm without rubs, murmurs, or gallops. ABDOMEN: Soft and nontender. Bowel sounds were active. EXTREMITIES: No clubbing, cyanosis, or edema. NEUROLOGIC: She is alert and oriented x4. Cranial nerves II through XII intact. LABORATORY AND ANCILLARY DATA: CBC shows hematocrit 29.7, otherwise CBC within normal limits. Chemistry within normal limits. ASSESSMENT: Odynophagia and dysphagia with a wide differential diagnosis. PLAN: 1. ENT consult. 2. Consider Neurology consult. 3. Video swallow. Mat Kingston M.D. DR: KELSY JOB#: [id number] CC: KADI
--- NOTE | 2019-01-17 17:48 | NUR ---
NURSE NOTES: DR MARKS WITH ORDER FOR NPO AND CHANGE IVF TO D5 1/2NS AT 75CC/H. EVALUATED BY SPEECH THERAPIST, TALIB. PER TALIB, PLAN FOR VIDEO SWALLOW TOMORROW. PT WAS GIVEN PRN DILAUDID 2MG IVP ORDERED FOR PAIN. PT RESTING, AROUSABLE TO VOICE. DENIES NAUSEA/VOMITING. IN NO APPARENT DISTRESS AT THIS TIME.
--- NOTE | 2019-01-17 19:29 | NUR ---
HAND-OFF: Report given to Serge SCHRADER RN.
--- NOTE | 2019-01-17 19:40 | NUR ---
NURSE NOTES: Received report from NATHALIA Pérez. Patient is currently in bed sleeping. No signs of distress. Left hand IV is intact. Patient is currently on strict NPO diet. Signs are posted on the door and overhead. Bed is currently in the lowest position with call light in reach. Bed alarm on. No signs of distress. Will continue to monitor the patient.
[2019-01-17 20:00] VITALS: BP 109/53
--- NOTE | 2019-01-17 21:50 | NUR ---
NURSE NOTES: BS was 174. No coverage was given due to protocol on eMAR. Will continue to monitor patient.
[2019-01-18] VITALS: BP 154/82
[2019-01-18 04:00] VITALS: BP 117/58
[2019-01-18] MEDS: D5 1/2NS w/KCl 20mEq 1,000 ML IV SCH ×2 (05:42→18:40)
[2019-01-18] MEDS: NovoLOG Insulin Flexpen SUBQ SCH ×4 (06:12→21:00)
--- NOTE | 2019-01-18 07:00 | NUR ---
HAND-OFF: Report given to NATHALIA Pérez.
[2019-01-18 08:00] VITALS: BP 107/53
[2019-01-18] MEDS: metFORMIN 500mg tab ORAL SCH ×2 (08:31→17:41)
[2019-01-18] MEDS: Docusate 100mg cap ORAL SCH ×2 (08:31→17:42)
[2019-01-18] MEDS: Magnesium Oxide 400mg tab ORAL SCH (08:32)
[2019-01-18] MEDS: Vitamin D 1000 IU Tab ORAL SCH (08:32)
[2019-01-18] MEDS: Multivitamin w/Minerals tab ORAL SCH (08:32)
[2019-01-18 08:41] LABS: HEMATOCRIT 30.2 % (37.0-47.0); HEMOGLOBIN 9.5 G/DL (12.0-16.0); MEAN CORPUSCULAR VOLUME 86 FL (80-99); PLATELET COUNT 172 K/UL (150-450); RED BLOOD COUNT 3.53 M/UL (4.20-5.40); RED CELL DISTRIBUTION WIDTH 13.1 % (11.6-14.8); WHITE BLOOD COUNT 3.3 K/UL (4.8-10.8)
[2019-01-18] MEDS: Heparin 5000 units/ml inj SUBQ SCH ×2 (08:49→21:22)
[2019-01-18 09:03] LABS: ANION GAP 8 mmol/L (5-15); BLOOD UREA NITROGEN 12 mg/dL (7-18); CALCIUM 9.2 MG/DL (8.5-10.1); CARBON DIOXIDE 29 MMOL/L (21-32); CHLORIDE 104 MMOL/L (98-107); POTASSIUM 4.4 MMOL/L (3.5-5.1); SODIUM 141 MMOL/L (136-145)
[2019-01-18 12:00] VITALS: BP 124/59
--- NOTE | 2019-01-18 13:00 | NUR ---
NURSE NOTES: DR MARKS MADE AWARE OF SPEECH THERAPIST'S RECOMMENDATIONS FOR PUREED MOIST WITH THIN LIQUIDS. DR MARKS WITH ORDER FOR CCHO MEDIUM WITH RECOMMENDED CONSISTENCY PER SPEECH THERAPIST.
--- NOTE | 2019-01-18 13:27 | General Progress Note ---
Assessment/Plan Assessment/Plan: Dysphagia - passed swallow eval. Odynophagia - awaiting ENT. Subjective Allergies: Coded Allergies: CODEINE (Verified Allergy, Unknown, 01/17/19) Subjective c/o diffuse pain Objective Last 24 Hour Vital Signs Date Time Temp Pulse Resp B/P (MAP) Pulse Ox O2 Delivery O2 Flow Rate FiO2 01/18/19 12:00 99.1 103 18 124/59 (80) 94 01/18/19 09:00 Room Air 01/18/19 08:00 98.1 101 16 107/53 (71) 93 01/18/19 04:00 98.1 96 20 117/58 (77) 94 01/18/19 00:00 98.1 100 18 154/82 (106) 93 01/17/19 21:00 Room Air 01/17/19 20:00 97.2 79 20 109/53 (71) 94 01/17/19 17:26 89 147/70 01/17/19 16:00 98.1 89 19 147/70 (95) 99 Intake and Output 01/17/19 01/18/19 18:59 06:59 Intake Total 705 ml Balance 705 ml Intake Oral 240 ml IV Total 465 ml # Voids 2 Laboratory Tests 01/18/19 07:10: White Blood Count 3.3L, Red Blood Count 3.53L, Hemoglobin 9.5L, Hematocrit 30.2L , Mean Corpuscular Volume 86, Mean Corpuscular Hemoglobin 26.9L, Mean Corpuscular Hemoglobin Concent 31.5L, Red Cell Distribution Width 13.1, Platelet Count 172, Mean Platelet Volume 5.9L, Neutrophils (%) (Auto) , Lymphocytes (%) (Auto) , Monocytes (%) (Auto) , Eosinophils (%) (Auto) , Basophils (%) (Auto) , Differential Total Cells Counted 100, Neutrophils % ( Manual) 45, Lymphocytes % (Manual) 38, Monocytes % (Manual) 14H, Eosinophils % ( Manual) 3, Basophils % (Manual) 0, Band Neutrophils 0, Platelet Estimate Adequate, Platelet Morphology Normal, Sodium Level 141, Potassium Level 4.4, Chloride Level 104, Carbon Dioxide Level 29, Anion Gap 8, Blood Urea Nitrogen 12 , Creatinine 1.0, Estimat Glomerular Filtration Rate , Glucose Level 157H, Calcium Level 9.2 Height (Feet): 5 Height (Inches): 8.00 Weight (Pounds): 97 Objective CV RR Lungs CTA Abd-SNT BS + E No cce Mat Kingston MD Jan 18, 2019 13:27
--- NOTE | 2019-01-18 13:58 | NUR ---
RD ASSESSMENT & RECOMMENDATIONS SEE CARE ACTIVITY FOR COMPLETE ASSESSMENT DAILY ESTIMATED NEEDS: Needs based on Underweight, DM 44 30-35 kcals/kg 7312-1205 total kcals 1-1.5 g protein/kg 44-66 g total protein 25-30 mL/kg 5251-0608 total fluid mLs NUTRITION DIAGNOSIS: Swallowing difficulty r/t neck pain as evidenced by pt adm w/ painful swallowing, diet now advanced to puree. CURRENT DIET:Now advanced to [facility] puree PO DIET RECOMMENDATIONS: [facility] LOW- texture per LABEL PASTER ADDITIONAL RECOMMENDATIONS: 1. Add GLUCERNA 1 tetra toni BID 2. Obtain a standing weight 3. F/up post VSS 4. Monitor tolerance to texture
[2019-01-18 16:00] VITALS: BP 139/67
--- NOTE | 2019-01-18 16:00 | NUR ---
NURSE NOTES: RN PAGED DR MARKS SECOND TIME FOR REQUEST FOR ORDER TO CHANGE IVF D5 1/2NS DUE TO PT BACK ON PO DIET AND HISTORY OF DM WITH ELEVATED BLOOD SUGAR.
--- NOTE | 2019-01-18 16:31 | NUR ---
ST NOTE: MODIFIED BARIUM SWALLOW STUDY COMPLETED MODIFIED BARIUM SWALLOW STUDY PLEASE SEE REPORT FOR DETAILS(PT'S MEDICAL HISTORY) PT ALERT, COOPERATIVE, FOLLOWS DIRECTIONS. 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 ORAL PHASE: FUNCTIONAL LABIAL AND LINGUAL MOVEMENT AND STRENGTH. PT TENDS TO HOLD THE BOLUS IN THE MOUTH UNTIL SHE IS READY TO SWALLOW. SLOW BUT FUNCTIONAL MASTICATION, GOOD ORAL TRANSIT TIME. BOLUS WAS HEADED TO VALLECULAE WHEN PT INITIATED PHARYNGEAL SWALLOW. PHARYNGEAL PHASE: MILD TO MODERATE TONGUE BASE AND VALLECULAR RESIDUE WAS NOTED AFTER SWALLOW SECONDARY TO PARTIAL TO NO INVERSION OF EPIGLOTTIC MOVEMENT. REDUCED POSTERIOR PHARYNGEAL WALL AND UPPER ESOPHAGEAL SPHINCTER OPENING WAS ALSO NOTED. NO ASPIRATION WAS NOTED WITH ALL CONSISTENCIES BUT HAS SOME RISK. PT BENEFITS FROM EFFORTFUL SWALLOW, SWALLOW X 2 TO 3 TIMES WITH HEAD TURN TO LEFT OR RIGHT SIDE IN ORDER TO CLEAR TONGUE BASE AND VALLECULAR RESIDUE. RECOMMENDATIONS: 1. RESUME ORAL DIET. DIET RECOMMENDED MOIST PUREE WITH THIN LIQUIDS 2. STRICT ASPIRATION PRECAUTIONS 3. HIGH CALORIE SUPPLEMENT 4. CONSIDER ENT CONSULT. D/W PT, PT'S FAMILY, RN, JIMENEZ, AND , DR. MARKS POSTED ASPIRATION PRECAUTIONS SIGN. Addendum: 01/18/19 at 1635 by SLY ABERNATHY TIMBER HARVESTER OPERATOR PT'S MEDICAL HISTORY: PT IS A 73-YEAR-OLD FEMALE, FROM [facility], WHO WAS ADMITTED DUE TO NECK PAIN AND WEAKNESS. PT STATED THAT SHE UNDERWENT A FUSION OF SPINAL SURGERY IN THE CERVICAL SPINE IN 10/2017 AFTER A BACK FALL. AFTER THAT, PT HAS INTRACTABLE BACK AND NECK PAIN. PER PT, FEELING NUMBNESS OF HER HANDS AND FEET. PER PT, AFTER THE SURGERY, SHE WAS ABLE TO TOLERATE SOFT DIET. HOWEVER, IN LAST TWO WEEKS, PT EXPERIENCES ODYNOPHAGIA(PAIN DURING SWALLOWING), AND FELL SWELLING AROUND THE THROAT AREA; AND SOMETIMES FELT FOOD STUCK IN THE THROAT AND CHOKING EPISODE. PT ALSO REPORTED THAT 20 POUNDS IN 1 YEAR(AFTER SURGERY). PT ALSO HAS HISTORY OF HTN AND DMII. PER PT'S POLST: FULL CODE AND FULL TREATMENT, OKAY FOR TRIAL PERIOD OF ARTIFICIAL NUTRITION, INCLUDING FEEDING TUBES. PER CXR: NO ACUTE PROCESS HEAD CT: NEGATIVE FOR ACUTE INTRACRANIAL BLEED OR MASS EFFECT
--- NOTE | 2019-01-18 19:58 | NUR ---
NURSE NOTES: Serge DE SOUZA MADE AWARE RN WAITING FOR DR MARKS'S CALL TO CHANGE IVF.
--- NOTE | 2019-01-18 19:58 | NUR ---
HAND-OFF: Report given to Serge DE SOUZA RN.
--- NOTE | 2019-01-18 19:59 | NUR ---
NURSE NOTES: Received report from NATHALIA Pérez. Patient is currently in bed, alert and oriented in a calm and pleasant disposition. No signs of distress. Left hand IV intact. Bed is currently in the lowest position, locked side rails x2, with call light in reach, bed alarm on. No signs of distress. Will continue to monitor patient.
[2019-01-18 20:00] VITALS: BP 125/67
[2019-01-18] MEDS ORDERED: NovoLOG Insulin Flexpen SUBQ SCH (21:00)
[2019-01-19] VITALS: BP 123/65
--- NOTE | 2019-01-19 02:38 | Consultation ---
History of Present Illness General Date patient seen: Jan 18, 2019 Chief Complaint: Pain Referring physician: Dr. Altamirano Present Illness HPI Jonathan Dai is a 73-year-old female from a group home with a PMH of T2DM, hypertensive cardiovascular disease, and muscle weakness s/p spinal fusion. She was admitted during the night with severe neck pain, inability to swallow, and painful swallowing. Allergies: Coded Allergies: CODEINE (Verified Allergy, Unknown, 01/17/19) Medication History Scheduled Amlodipine Besylate (Norvasc), 2.5 MG ORAL BID, (Reported) Atorvastatin Calcium* (Lipitor*), 10 MG ORAL BEDTIME, (Reported) Cholecalciferol (Vitamin D3)* (Vitamin D*), 1,000 UNIT ORAL DAILY, (Reported) Docusate Sodium* (Docusate Sodium*), 100 MG ORAL TWICE A DAY, (Reported) Gabapentin* (Neurontin*), 300 MG ORAL THREE TIMES A DAY, (Reported) Magnesium Citrate (Magnesium Citrate), 100 MG PO PRN, (Reported) Magnesium Oxide (Magnesium Oxide), 400 MG PO BID, (Reported) Metformin Hcl* (Metformin Hcl*), 1,000 MG ORAL TWICE A DAY, (Reported) Methocarbamol (Methocarbamol), 500 MG PO Q8, (Reported) Multivitamin With Minerals (Multivitamins With Minerals*), 1 TAB ORAL DAILY, ( Reported) Polyethylene Glycol 3350* (Miralax*), 17 GM ORAL DAILY, (Reported) Ranitidine Hcl* (Zantac*), 150 MG ORAL TWICE A DAY, (Reported) Sennosides (Senna), 2 TAB PO BEDTIME, (Reported) Scheduled PRN Acetaminophen* (Acetaminophen 325MG Tablet*), 650 MG ORAL Q6H PRN for Mild Pain (Pain Scale 1-3), (Reported) Acetaminophen* (Acetaminophen 325MG Tablet*), 500 MG ORAL Q4H PRN for Mild Pain (Pain Scale 1-3), (Reported) Benzocaine/Menthol (Sore Throat Lozenge), 1 EACH MM EVERY 2 HOURS PRN for sore throat, (Reported) D-Methorphan Hb/Prometh Hcl* (Promethazine-Dm Syrup*), 5 ML ORAL Q6H PRN for For Cough, (Reported) Hydrocodone Bit/Acetaminophen 5-325* ([place]ana[place] 5-325*), 1 TAB ORAL Q4H PRN for Moderate Pain (Pain Scale 4-6), (Reported) Hydrocodone Bit/Acetaminophen 5-325* ([place]ana[place] 5-325*), 2 TAB ORAL Q6H PRN for Severe Pain (Pain Scale 7-10), (Reported) Hydrocodone/Acetaminophen (Hydrocodon-Acetaminophn 10-325), 1 TAB ORAL Q4H PRN for For Pain, (Reported) Lactulose (Lactulose*), 30 ML ORAL Q6HR PRN for Constipation, (Reported) Ondansetron* (Zofran*), 4 MG ORAL Q6H PRN for Nausea & Vomiting, (Reported) Tramadol Hcl* (Ultram*), 50 MG ORAL Q6H PRN for Severe Pain (Pain Scale 7-10), ( Reported) Miscellaneous Medications Insulin Lispro (Humalog), (Reported) Patient History Healthcare decision maker Resuscitation status Advanced Directive on File Physical Exam Last 24 Hour Vital Signs Date Time Temp Pulse Resp B/P (MAP) Pulse Ox O2 Delivery O2 Flow Rate FiO2 01/19/19 00:00 98.7 91 16 123/65 (84) 99 01/18/19 21:51 98.2 01/18/19 20:00 98.2 97 16 125/67 (86) 98 01/18/19 17:42 105 139/67 01/18/19 16:00 98.5 105 19 139/67 (91) 97 01/18/19 12:00 99.1 103 18 124/59 (80) 94 01/18/19 09:00 Room Air 01/18/19 08:00 98.1 101 16 107/53 (71) 93 01/18/19 04:00 98.1 96 20 117/58 (77) 94 Intake and Output 01/18/19 01/19/19 19:00 07:00 Intake Total 855 ml Balance 855 ml Intake Oral 480 ml IV Total 375 ml Laboratory Tests Test 01/18/19 07:10 White Blood Count 3.3 K/UL (4.8-10.8) L Red Blood Count 3.53 M/UL (4.20-5.40) L Hemoglobin 9.5 G/DL (12.0-16.0) L Hematocrit 30.2 % (37.0-47.0) L Mean Corpuscular Volume 86 FL (80-99) Mean Corpuscular Hemoglobin 26.9 PG (27.0-31.0) L Mean Corpuscular Hemoglobin Concent 31.5 G/DL (32.0-36.0) L Red Cell Distribution Width 13.1 % (11.6-14.8) Platelet Count 172 K/UL (150-450) Mean Platelet Volume 5.9 FL (6.5-10.1) L Neutrophils (%) (Auto) % (45.0-75.0) Lymphocytes (%) (Auto) % (20.0-45.0) Monocytes (%) (Auto) % (1.0-10.0) Eosinophils (%) (Auto) % (0.0-3.0) Basophils (%) (Auto) % (0.0-2.0) Differential Total Cells Counted 100 Neutrophils % (Manual) 45 % (45-75) Lymphocytes % (Manual) 38 % (20-45) Monocytes % (Manual) 14 % (1-10) H Eosinophils % (Manual) 3 % (0-3) Basophils % (Manual) 0 % (0-2) Band Neutrophils 0 % (0-8) Platelet Estimate Adequate Platelet Morphology Normal Sodium Level 141 MMOL/L (136-145) Potassium Level 4.4 MMOL/L (3.5-5.1) Chloride Level 104 MMOL/L (98-107) Carbon Dioxide Level 29 MMOL/L (21-32) Anion Gap 8 mmol/L (5-15) Blood Urea Nitrogen 12 mg/dL (7-18) Creatinine 1.0 MG/DL (0.55-1.30) Estimat Glomerular Filtration Rate mL/min (>60) Glucose Level 157 MG/DL (74-106) H Calcium Level 9.2 MG/DL (8.5-10.1) Height (Feet): 5 Height (Inches): 8.00 Weight (Pounds): 97 Medications Current Medications Medications (Trade) Dose Ordered Sig/Bree Route PRN Reason Start Time Stop Time Status Last Admin Dose Admin Acetaminophen (Tylenol) 500 mg Q4H PRN ORAL Mild Pain (Pain Scale 1-3) 01/17/19 07:15 02/16/19 07:14 Acetaminophen/ Hydrocodone Bitart (Canaan 5/325) 1 tab Q6H PRN ORAL Moderate Pain (Pain Scale 4-6) 01/17/19 07:15 01/24/19 07:14 01/17/19 09:43 Amlodipine Besylate (Norvasc) 2.5 mg BID ORAL 01/17/19 09:00 02/16/19 08:59 01/18/19 17:42 Atorvastatin Calcium (Lipitor) 10 mg BEDTIME ORAL 01/17/19 21:00 02/16/19 20:59 01/18/19 21:21 Dextrose (Dextrose 50%) 25 ml Q30M PRN IV Hypoglycemia 01/17/19 07:45 02/16/19 07:44 Dextrose (Dextrose 50%) 50 ml Q30M PRN IV Hypoglycemia 01/17/19 07:45 02/16/19 07:44 Dextrose/ Electrolytes 1,000 ml @ 75 mls/hr [id number] IV 01/17/19 16:00 02/16/19 15:59 01/18/19 05:42 Docusate Sodium (Colace) 100 mg TWICE A DAY ORAL 01/17/19 09:00 02/16/19 08:59 01/17/19 09:41 Escitalopram Oxalate (Lexapro) 10 mg DAILY ORAL 01/17/19 09:00 02/16/19 08:59 01/17/19 09:42 Gabapentin (Neurontin) 300 mg TID ORAL 01/17/19 09:00 02/16/19 08:59 01/18/19 17:42 Heparin Sodium (Porcine) (Heparin 5000 units/ml) 5,000 units EVERY 12 HOURS SUBQ 01/17/19 09:00 02/16/19 08:59 01/18/19 21:22 Hydromorphone HCl (Dilaudid) 2 mg Q6H PRN IVP Severe Pain (Pain Scale 7-10) 01/17/19 07:15 01/24/19 07:14 01/18/19 21:21 Insulin Aspart (NovoLOG) BS 70-150 0 UNIT BS 151-20... BEFORE MEALS AND HS SUBQ 01/18/19 16:30 02/16/19 11:29 01/18/19 18:15 Lactulose (Cephulac) 20 gm Q6H PRN ORAL Constipation 01/17/19 07:15 02/16/19 07:14 Lidocaine (Lidoderm 5% PATCH) 1 patch DAILY TDERMAL 01/17/19 09:00 02/16/19 08:59 01/18/19 08:39 Magnesium Oxide (Mag-Ox 400mg) 400 mg DAILY ORAL 01/17/19 09:00 02/16/19 08:59 01/17/19 09:42 Metformin HCl (Glucophage) 1,000 mg TWICE A DAY ORAL 01/17/19 09:00 02/16/19 08:59 01/18/19 17:41 Methocarbamol (Robaxin) 500 mg Q8H PRN ORAL muscle pain/spasm 01/17/19 07:15 02/16/19 07:14 Multivitamins Therapeutic (Therapeutic Multivitamin) 1 ea DAILY ORAL 01/17/19 09:00 02/16/19 08:59 01/17/19 09:42 Ondansetron HCl (Zofran) 4 mg Q6H PRN IVP Nausea & Vomiting 01/17/19 07:15 02/16/19 07:14 Vitamin D (Vitamin D) 1,000 intlu DAILY ORAL 01/17/19 09:00 02/16/19 08:59 01/17/19 09:42 Objective Narrative [facility] Medical Imaging [address] [facility] [place] [address] [phone], fax [phone] Alan Herrera M.D. Pyrometer Mechanic Patient : JONATHAN DAI Referring Physician: Maribel Moreno DO ID Number: [id number] Service Date: 01/17/19 : 1945 Report Date: 01/17/19 Gender: F Accession No.: [id number] Location: Procedure: CT Head no Contrast Indication: Headache and neck pain for 2 days Technique: spiral acquisitions obtained through the brain. Angled axial and coronal 5 x 5 mm slices were reconstructed. No IV contrast utilized. Radiation dose was minimized using automated exposure control Total dose length product 1397.17 mGycm. CTDIvol(s) 70.38 mGy Comparison: September 13, 2018 FINDINGS: No acute hemorrhage or edema. No mass effect or midline shift. There is age-related enlargement of the ventricles and extra axial CSF spaces. There is periventricular deep white matter ischemic change. Normal aguilar-white differentiation. Visualized orbits are unremarkable. Visualized sinuses are unremarkable. Intact calvarium. No significant interim change IMPRESSION: Chronic and age-related changes. Negative for acute intracranial bleed or mass effect This agrees with the preliminary interpretation provided overnight by [facility] teleradiology service. The CT scanner at [facility] is accredited by the [employer] and the scans are performed using protocols designed to limit radiation exposure to as low as reasonably achievable to attain images of sufficient resolution adequate for diagnostic evaluation Dictated By: Monty Antoine MD Electronically Signed By: Monty Antoine MD Signed Date/Time 01/17/19 1238 CC: Maribel Moreno DO; Mat Kingston MD [facility] Medical Imaging [address] [facility] [place] [address] [phone], fax [phone] Alan Herrera M.D. Pyrometer Mechanic Patient : JONATHAN DAI Referring Physician: Maribel Moreno DO ID Number: [id number] Service Date: 01/17/19 : 1945 Report Date: 01/17/19 Gender: F Accession No.: [id number] Location: Procedure: CT C Spine no Contrast Indication: Neck and head pain for 2 days Technique: Spiral acquisitions obtained through the cervical spine. No IV contrast utilized. Multiplanar reconstructions were generated. Total dose length product 238.72 mGycm. CTDIvol(s) 11.88 mGy. Dose reduction achieved using automated exposure control. Comparison: 09/13/2018 Findings: Again demonstrated is anterior fusion hardware fusing C4, C5, C6, C7. Hardware appears to be intact. There appears to be ankylosis of the intervening discs. There also appears to be ankylosis of the C2-3 and C4-5 posterior elements on the right No acute fractures. No dislocations. Bony alignment is normal. No prevertebral soft tissue swelling. At C2-3, there is moderate narrowing the right neural foramen, also previously demonstrated. The disc spaces preserved. C3-4, posterior disc bulge/osteophyte complex results in borderline narrowing of the spinal canal. There is moderate narrowing of the bilateral neural foramina. At C4-5, posterior osteophytes on the right result in borderline narrowing of the right side of the spinal canal. There is minimal bilateral neural foraminal stenosis. At C5-6, posterior osteophytes result in borderline narrowing of the right side of the spinal canal. There is severe right and moderate left neural foraminal stenosis again demonstrated. At C6-7, posterior osteophytes result in mild narrowing of the spinal canal. There is mild bilateral neural foraminal stenosis again demonstrated. At C7-T1, no significant disc bulge or protrusion, spinal stenosis, or neural foraminal stenosis. The included lung apices are clear. The included extraspinal soft tissues are unremarkable except for a stable calcified nodule in the left thyroid lobe. Findings are unchanged from the previous study Impression: Postsurgical changes, as described Degenerative changes as detailed on a level by level basis above, unchanged from 09/13/2018. No acute bony trauma. This agrees with the preliminary interpretation provided overnight by [facility] teleradiology service. The CT scanner at [facility] is accredited by the [employer] and the scans are performed using protocols designed to limit radiation exposure to as low as reasonably achievable to attain images of sufficient resolution adequate for diagnostic evaluation. Dictated By: Monty Antoine MD Electronically Signed By: Monty Antoine MD Signed Date/Time 01/17/19 1234 CC: Maribel Moreno DO; Mat Kingston MD Assessment/Plan Problem List: (1) Pain ICD Codes: R52 - Pain, unspecified SNOMED: 26780894 (2) neck pain, weakness (3) Dysphagia ICD Codes: R13.10 - Dysphagia, unspecified SNOMED: 64670764, 173262805 (4) Intractable back pain ICD Codes: M54.9 - Dorsalgia, unspecified SNOMED: 661622553 Assessment/Plan: Q4 hour Neuro obs / neurovascular obs Pain management Gabapentin 300mg TID, consider increased dose or addition of Lyrica at this time. CT C Spine unchanged from prior study in September 2018. Hypercalcemia- follow up Check Magnesium Consider addition of muscle relaxants for pain relief. Check TSH, follow CMP Check HgBA1c. Adeline Fisher N.P. Jan 19, 2019 02:38
--- NOTE | 2019-01-19 02:40 | Neurology Progress Note ---
Interim History Interim History Complaints: Dysphagia Events: Passed swallow study/ CT negative Interim History This visit was performed on January 19, [address] Josh Joseph. Objective Physical Exam Last Vital Signs Date Time Temp Pulse Resp B/P (MAP) Pulse Ox O2 Delivery O2 Flow Rate FiO2 01/19/19 00:00 98.7 91 16 123/65 (84) 99 01/18/19 09:00 Room Air Laboratory Tests Test 01/18/19 07:10 White Blood Count 3.3 K/UL (4.8-10.8) L Red Blood Count 3.53 M/UL (4.20-5.40) L Hemoglobin 9.5 G/DL (12.0-16.0) L Hematocrit 30.2 % (37.0-47.0) L Mean Corpuscular Volume 86 FL (80-99) Mean Corpuscular Hemoglobin 26.9 PG (27.0-31.0) L Mean Corpuscular Hemoglobin Concent 31.5 G/DL (32.0-36.0) L Red Cell Distribution Width 13.1 % (11.6-14.8) Platelet Count 172 K/UL (150-450) Mean Platelet Volume 5.9 FL (6.5-10.1) L Neutrophils (%) (Auto) % (45.0-75.0) Lymphocytes (%) (Auto) % (20.0-45.0) Monocytes (%) (Auto) % (1.0-10.0) Eosinophils (%) (Auto) % (0.0-3.0) Basophils (%) (Auto) % (0.0-2.0) Differential Total Cells Counted 100 Neutrophils % (Manual) 45 % (45-75) Lymphocytes % (Manual) 38 % (20-45) Monocytes % (Manual) 14 % (1-10) H Eosinophils % (Manual) 3 % (0-3) Basophils % (Manual) 0 % (0-2) Band Neutrophils 0 % (0-8) Platelet Estimate Adequate Platelet Morphology Normal Sodium Level 141 MMOL/L (136-145) Potassium Level 4.4 MMOL/L (3.5-5.1) Chloride Level 104 MMOL/L (98-107) Carbon Dioxide Level 29 MMOL/L (21-32) Anion Gap 8 mmol/L (5-15) Blood Urea Nitrogen 12 mg/dL (7-18) Creatinine 1.0 MG/DL (0.55-1.30) Estimat Glomerular Filtration Rate mL/min (>60) Glucose Level 157 MG/DL (74-106) H Calcium Level 9.2 MG/DL (8.5-10.1) General: well developed, well nourished Head: normocophalic Neck: no rigidity EENT: benign Neurologic Exam Mental Status: awake, alert, oriented x4, normal cognition, good mathematical skills, normal recent memory, normal remote memory, preserved visuospatial function Speech: normal speech, no dysarthia Language: normal language, no aphasia Cranial Nerve II: fundus normal, visual mueller, no papilledema Cranial Nerves III, IV, : PERRLA, EOMI, pupils Cranial Nerve V: normal facial sensations, temporales function normal, masseters function normal, pterygoids function normal Cranial Nerve VII: no facial asymmetry, normal facial expressions Cranial Nerve VIII: normal hearing, no nystagmus Cranial Nerve IX: normal palate elevation, gag response Cranial Nerve X: no voice hoarseness Cranial Nerve XI: SCM symmetric, trapezii function normal Cranial Nerve XII: tongue midline, no tongue atrophy/fasciculations Motor System: normal muscle tone, no involuntary movement, no muscle wasting Sensory: normal pinprick, normal light touch, normal position sense, normal graphesthesia Coordination: normal finger to nose bilaterally, normal heel to alvarez bilaterally, negative Romberg test Deep Tendon Reflexes: 2+ bicep (L), 2+ bicep (R), 2+ tricep (L), 2+ tricep (R) , 2+ brachioradialis (L), 2+ brachioradialis (R), 2+ knee (L), 2+ knee (R), 2+ ankle (L), 2+ ankle (R) Stance: normal Gait: stable, normal regular, heel + toe gait Impression/Recommendations Problems: (1) Pain (2) neck pain, weakness (3) Dysphagia (4) Intractable back pain Adeline Fisher N.P. Jan 19, 2019 02:40
[2019-01-19 04:00] VITALS: BP 153/76
[2019-01-19] MEDS: NovoLOG Insulin Flexpen SUBQ SCH ×4 (06:20→21:00)
--- NOTE | 2019-01-19 06:54 | NUR ---
NURSE NOTES: Dr Kingston returned call to stop D51/2 NS with 20 mEq and change to 1/2 NS with 20 meQ K at 50 ml/hour. Entered order and will endorse to day shift. Pt was no longer NPO and is diabetic
--- NOTE | 2019-01-19 07:48 | NUR ---
HAND-OFF: Report given to NATHALIA Morrow
--- NOTE | 2019-01-19 07:50 | NUR ---
NURSE NOTES:\ Patient is awake and alert, respirations are unlabored.patient incontinent of urine,skin care give,skin is intact..Breakfast at bedside,will assist patient. Call light within reach,bed alarm is on.
[2019-01-19 08:00] VITALS: BP 130/56
[2019-01-19] MEDS: Docusate 100mg cap ORAL SCH ×2 (09:00→18:00)
[2019-01-19] MEDS: Multivitamin w/Minerals tab ORAL SCH (09:32)
[2019-01-19] MEDS: metFORMIN 500mg tab ORAL SCH ×2 (09:32→18:51)
[2019-01-19] MEDS: Vitamin D 1000 IU Tab ORAL SCH (09:32)
[2019-01-19] MEDS: Magnesium Oxide 400mg tab ORAL SCH (09:32)
[2019-01-19] MEDS: Heparin 5000 units/ml inj SUBQ SCH ×2 (09:37→21:47)
[2019-01-19] MEDS: 1/2NS w/KCl 20mEq 1000ml 1,000 ML IV SCH (11:07)
--- NOTE | 2019-01-19 11:48 | NUR ---
ST NOTE: SWALLOW/SPEECH/COGNITION STATUS: PT SEEN AT BEDSIDE IN AM. ALERT AND COOPERATIVE. PT IS AT UPRIGHT POSITION. PER PT, ABLE TO TOLERATE PUREE DIET AND USE THE SWALLOW TECHNIQUES. REVIEWED AND EDUCATED SWALLOW TECHNIQUES WITH PT. DISCUSSED WITH RN, LUIZA BRANTLEY:PT'S CONDITIONS AND MODIFIED BARIUM SWALLOW STUDY RESULTS AND RECOMMENDATIONS. REVIEWED MODIFIED BARIUM SWALLOW STUDY IMAGES AND WILL COMPLETE THE FULL REPORT. D/W PT AND RN.
[2019-01-19 12:00] VITALS: BP 109/54
--- NOTE | 2019-01-19 15:58 | General Progress Note ---
Assessment/Plan Assessment/Plan: Dysphagia - passed swallow eval. Odynophagia - awaiting ENT. Not done! DC to SNF. Subjective Allergies: Coded Allergies: CODEINE (Verified Allergy, Unknown, 01/17/19) Subjective c/o diffuse pain Objective Last 24 Hour Vital Signs Date Time Temp Pulse Resp B/P (MAP) Pulse Ox O2 Delivery O2 Flow Rate FiO2 01/19/19 12:00 98.7 85 18 109/54 (72) 97 01/19/19 09:58 Room Air 01/19/19 09:36 92 128/52 01/19/19 08:00 98.8 89 17 130/56 (80) 95 01/19/19 05:10 98.7 01/19/19 04:00 97.2 104 20 153/76 (101) 98 01/19/19 00:00 98.7 91 16 123/65 (84) 99 01/18/19 21:00 Room Air 01/18/19 20:00 98.2 97 16 125/67 (86) 98 01/18/19 17:42 105 139/67 01/18/19 16:00 98.5 105 19 139/67 (91) 97 Intake and Output 01/18/19 01/19/19 18:59 06:59 Intake Total 930 ml Balance 930 ml Intake Oral 480 ml IV Total 450 ml # Voids 3 Height (Feet): 5 Height (Inches): 8.00 Weight (Pounds): 97 Objective CV RR Lungs CTA Abd-SNT BS + E No cce Mat Kingston MD Jan 19, 2019 15:58
[2019-01-19 16:23] VITALS: BP 123/60
--- NOTE | 2019-01-19 17:03 | NUR ---
DISCHARGE DISPOSITION: PLEASE READ PATIENT TO BE DISCHARGED TO [facility] [address] [facility] [address] T: [phone]>> CALL FOR REPORT [facility] ETA 1900 LEFT FOR SISTER TONG COOK
--- NOTE | 2019-01-19 18:24 | NUR ---
NURSE NOTES: Call was placed to [facility] called back and I spoke with Zina and was informed that they did not receive information on patient to review to see if they would accept patient back to facility.Charge Nurse aware and called development manager ani Pierce at this time. Ben the property administrator per Zina did not receive inquiry.Until they get the information they are unable to receive patient..
--- NOTE | 2019-01-19 19:00 | NUR ---
NURSE NOTES: Patient resting,iV fluids infusing as ordered.Call light within reach.
--- NOTE | 2019-01-19 19:20 | NUR ---
NURSE NOTES: Patient is awake and alert, respirations are unlabored. patient incontinent of urine,skin care give,skin is intact. pt is dry at this time. Call light within reach,bed alarm is on.
[2019-01-19 20:00] VITALS: BP 126/62
--- NOTE | 2019-01-19 20:10 | NUR ---
HAND-OFF: Report given to Jeannette SLOAN.
[2019-01-20] VITALS: BP 121/54
[2019-01-20 04:00] VITALS: BP 125/51
[2019-01-20] MEDS: 1/2NS w/KCl 20mEq 1000ml 1,000 ML IV SCH (04:12)
[2019-01-20] MEDS: NovoLOG Insulin Flexpen SUBQ SCH ×2 (06:30→11:30)
--- NOTE | 2019-01-20 07:28 | NUR ---
HAND-OFF: Report given to Odalys SLOAN .
--- NOTE | 2019-01-20 07:58 | NUR ---
NURSE NOTES: Patient is awake and alert and oriented,respirations are unlabored,patient sitting up in bed and eating breakfast.Call light within reach.
[2019-01-20 08:00] VITALS: BP 133/60
[2019-01-20] MEDS: Docusate 100mg cap ORAL SCH (09:00)
--- NOTE | 2019-01-20 09:41 | NUR ---
DISCHARGE DISPOSITION: PLEASE READ PATIENT TO BE DISCHARGED TO [facility] [address] [facility] [address] T: [phone]>> CALL FOR REPORT [facility] ETA [phone]
[2019-01-20] MEDS: metFORMIN 500mg tab ORAL SCH (10:09)
[2019-01-20] MEDS: Magnesium Oxide 400mg tab ORAL SCH (10:09)
[2019-01-20] MEDS: Multivitamin w/Minerals tab ORAL SCH (10:10)
[2019-01-20 10:12] VITALS: BP 151/73
[2019-01-20] MEDS: Vitamin D 1000 IU Tab ORAL SCH (10:20)
[2019-01-20] MEDS: Heparin 5000 units/ml inj SUBQ SCH (10:20)
--- NOTE | 2019-01-20 10:48 | NUR ---
ST NOTE: SWALLOW STATUS/D/C SUMMARY: FOLLOWED UP PT'S CONDITIONS. PT SEEN AT BEDSIDE IN AM. ALERT AND COOPERATIVE, EDUCATED PT RE: SWALLOW TECHNIQUES AND HEAD TURN TO L-SIDE. PER PT, PT COUGHED ON THE FOOD WHEN SHE FORGOT THE SWALLOW TECHNIQUES. DISCUSSED AND EDUCATED WITH RNFERCHO RE:PT'S CONDITIONS AND DIET RECOMMENDATIONS AND SWALLOW TECHNIQUES. PT WILL BE D/C TODAY. A COPY OF THE MODIFIED BARIUM SWALLOW STUDY REPORT WS GIVEN FOR DISCHARGE. D/C FROM [facility].
--- NOTE | 2019-01-20 11:30 | NUR ---
NURSE NOTES: Report given to Cedric RN at [facility].
--- NOTE | 2019-01-20 13:09 | NUR ---
NURSE NOTES: Discharge at this time to [facility] IV removed,Patient has personal belongings.[facility] take patient.
--- NOTE | 2019-01-20 16:33 | Diagnostic Imaging Report ---
Indications: Dysphagia Technique: Patient ingested multiple substances under the supervision of speech pathology. Video fluoroscopic recording performed. Total fluoroscopy time 258 seconds. Total dose area product [id number] mGycm2 Total number of images-10 Comparison: none Findings: Early pooling of thin liquid barium. Trace supraglottic laryngeal penetration is demonstrated on a few swallows. No romain aspiration demonstrated. Aspiration or penetration of honey thick liquid barium and barium puree, masticated solid. Impression: Positive for penetration of thin liquid barium Please refer to speech pathology report for more detailed analysis
--- NOTE | 2019-01-22 21:39 | Discharge Summary ---
Discharge Summary Discharge Summary _ DATE OF ADMISSION: 01/17/2019 DATE OF DISCHARGE: 01/20/2019 DISCHARGED BY: Dr. Altamirano REASON FOR ADMISSION: 73 years old female, with past medical history of type 2 diabetes mellitus, hypertensive cardiovascular disease, status post spinal fusion with muscle weakness , resident of senior care facility, admitted with severe neck pain , inability to swallow and painful swallowing. Laboratory work-up revealed anemia with hemoglobin 9.7, hematocrit 29.7. Stable electrolytes and renal parameters. Glucose 98. Stable LFT. Troponin negative. CT of the head revealed chronic and age-related changes , but was negative for acute intracranial bleeding or mass-effect. Chest x-ray demonstrated no acute cardiopulmonary pathology. CT of cervical spine demonstrated postsurgical changes. Degenerative changes unchanged from 09/13/2018. No acute bony trauma. Patient subsequently admitted to medical surgical floor for further management. CONSULTANTS: neurologist Dr. Joseph [facility]RSE: Patient admitted. Neurologist followed. Neuro-checks were done. Patient was on Neurontin. Neurologist recommended to consider increasing the dose of Neurontin or add Lyrica. Patient was able to pass video swallow evaluation . Diet texture was provided as recommended by speech therapist. Patient was working with speech therapist while in the hospital. Strict aspiration/reflux precaution with one-to-one supervision were maintained at all times. Nutritional assessment revealed high nutritional risk. BMI 14.7. Protein supplements implemented in plan of care as per registered dietitian recommendation. Blood pressure was managed with current medication regimen and remained stable. DVT prophylaxis provided. Statin continued. Blood sugar was managed with metformin. Sliding scale of insulin was on board as needed. Patient clinically stabilized and was ready for discharge to senior care facility for continuation of care FINAL DIAGNOSES: Dysphagia Cachexia ( BMI 14.7) Type 2 diabetes mellitus Hypertensive cardiovascular disease Neck pain History of spinal fusion DISCHARGE MEDICATIONS: See Medication Reconciliation list. DISCHARGE INSTRUCTIONS: Patient was discharged to the senior care facility. Follow up with medical doctor at the facility. I have been assigned to dictate discharge summary for this account. I was not involved in the patient's management. Sally Ferro NP Jan 22, 2019 21:39
== END 2019-01-20 13:00 | DRG 392 ==
LOC: EDUNIT# 02:29 → EDBD 02:29 → EMR 02:40 → EDBEDREQ 02:43 → 4E 03:31 → EDBEDREQ 03:49 → 4E 04:50
DX: R13.10 Dysphagia, unspecified (principal); E11.9 Type 2 diabetes mellitus without complications; I11.9 Hypertensive heart disease without heart failure; Z88.6 Allergy status to analgesic agent; Z98.1 Arthrodesis status; Z79.4 Long term (current) use of insulin; M54.2 Cervicalgia; E78.5 Hyperlipidemia, unspecified
CPT/HCPCS: 36415; 70450; 71045; 72125; 74230; 80048; 80053; 82550; 82553; 82962; 84484; 85007; 85025; 87081; 93005; 96374; 96375; 96376; 99285; J1815; J2405

== ENCOUNTER 2019-03-27 17:57 | Inpatient (IN) | payer MEDICARE, OTHER ==
[~2019-03-27] VITALS: Ht 167.6 cm; Wt 51.0 kg
[2019-03-27 17:58] VITALS: BP 120/88
--- NOTE | 2019-03-27 17:58 | NUR ---
ED Nurse Note: BROUGHT BY RA11 FROM [facility] DUE TO DIFFICULTY SWALLOWING AND STABBING FEELING TOWARD THROAT. HX OF ANXIETY, HTN AND DEPRESSION. ALERT AND ORIENTED, VERBALLY RESPONSIVE. BREATHING EVEN AND UNLABORES. VSS.
[2019-03-27] MEDS ORDERED: ASPIR 8181 MG ORAL (18:09)
[2019-03-27] MEDS ORDERED: ENALAPRIL MALEA20 MG ORAL (18:09)
[2019-03-27] MEDS ORDERED: Lidocaine 2% Visc 15ml soln ORAL ONE (18:15)
[2019-03-27] MEDS ORDERED: LORazepam Inj 2mg/ml 1ml IV ONE (18:15)
[2019-03-27] MEDS ORDERED: Nitroglycerin 2% oint pkt TOPIC ONE (18:15)
[2019-03-27] MEDS ORDERED: Mylanta II UD 30ml ORAL ONE (18:15)
[2019-03-27] MEDS ORDERED: Morphine Sulfate 2mg/ml Inj(IV/IM USE ONLY) IVP ONE ×2 (18:15→21:00)
[2019-03-27] MEDS: Sodium Chloride 550 ML IV SCH ×2 (18:31→21:08)
--- NOTE | 2019-03-27 18:56 | Emergency Room Report ---
History of Present Illness General Chief Complaint: General Complaint Source: Patient, Medical Record, EMS Present Illness HPI Patient initial complaint was neck pain and difficulty swallowing. Paramedics stated that they were able to talk her down with from anxiety condition. Later during transport she started complaining of chest pain radiating up into her neck. She also complains about some dyspnea. The pain began last night. She did not want to bother anybody at that time. She denies anxiety. She rates the pain 10/10 mainly in her neck. However there is less pain in her chest. She feels the pain in her chest is sharp and pressure and constant. She has minimal exertion and cannot relate to whether the chest pain is worsened on exertion. She denies any nausea or vomiting. There is no calf pain or swelling in her legs. The patient denies fevers or chills or productive cough. She has had neck surgery and has presented with neck pain in the past. She has a history of dysphagia and hyperlipidemia. No palpitations, nausea, vomiting, diarrhea, dysuria, abdominal pain, joint pain , rashes, depression, visual changes, headache. Patient admitted in December with these discharge diagnoses: Dysphagia Cachexia ( BMI 14.7) Type 2 diabetes mellitus Hypertensive cardiovascular disease Intractable neck pain History of spinal fusion Allergies: Coded Allergies: CODEINE (Verified Allergy, Unknown, 01/17/19) Patient History Past Medical History: see triage record Past Surgical History: other - Cervical fusion Social History: Denies: smoking Social History Narrative From correction facility Reviewed Nursing Documentation: PMH: Agreed; PSxH: Agreed Nursing Documentation-PMH Past Medical History: No History, Except For Hx Hypertension: Yes - hyperlipidemia Hx Diabetes: Yes Hx Cancer: No Hx Gastrointestinal Problems: No Hx Numbness: Yes - bilateral distal extremtities Review of Systems All Other Systems: negative except mentioned in HPI Physical Exam Vital Signs Date Time Temp Pulse Resp B/P (MAP) Pulse Ox O2 Delivery O2 Flow Rate FiO2 03/27/19 17:53 97.9 101 16 127/74 (91) 100 Room Air Sp02 EP Interpretation: reviewed, normal General Appearance: alert, mild distress Head: normocephalic Eyes: bilateral eye normal inspection, bilateral eye PERRL ENT: moist mucus membranes Neck: full range of motion, supple, no bony tend Respiratory: chest non-tender, lungs clear, normal breath sounds Cardiovascular #1: regular rate, rhythm Cardiovascular #2: 2+ radial (R) Gastrointestinal: normal inspection, normal bowel sounds, non tender, no mass, non-distended Genitourinary: no CVA tenderness Musculoskeletal: back normal, normal range of motion, no calf tenderness Neurologic: alert, oriented x3, motor strength/tone normal, DTRs symmetric, sensory intact, speech normal Psychiatric: anxious Skin: no rash Medical Decision Making Diagnostic Impression: Primary Impression: Chest pain Qualified Codes: R07.9 - Chest pain, unspecified Additional Impressions: Neck pain Anxiety ER Course Patient presents with chest and neck pain with dyspnea. Differential includes acute myocardial infarction, exacerbation of neck pain, dysphagia, anxiety amongst others. Evaluation will be with EKG, chest x-ray and labs. The patient and placed on a supervisor tower. She is given a small dose of morphine and Ativan along with lidocaine and Mylanta. Due to her age and the difficulty of determining the symptoms she most likely will need observation in the telemetry unit. EKG without injury. Chest x-ray with cervical surgery no infiltrates. No leukocytosis. Initial troponin negative. CMP with elevated calcium. Patient improved with treatment however still complaining about chest pain. She still denies anxiety but seems somewhat pressured still but improved. Is a complex patient with multiple problems who needs cardiac evaluation. Discussed with Dr. Kingston. Admit to telemetry. Laboratory Tests Test 03/27/19 18:30 White Blood Count 3.0 K/UL (4.8-10.8) L Red Blood Count 3.77 M/UL (4.20-5.40) L Hemoglobin 10.3 G/DL (12.0-16.0) L Hematocrit 32.5 % (37.0-47.0) L Mean Corpuscular Volume 86 FL (80-99) Mean Corpuscular Hemoglobin 27.4 PG (27.0-31.0) Mean Corpuscular Hemoglobin Concent 31.7 G/DL (32.0-36.0) L Red Cell Distribution Width 12.7 % (11.6-14.8) Platelet Count 189 K/UL (150-450) Mean Platelet Volume 6.1 FL (6.5-10.1) L Neutrophils (%) (Auto) % (45.0-75.0) Lymphocytes (%) (Auto) % (20.0-45.0) Monocytes (%) (Auto) % (1.0-10.0) Eosinophils (%) (Auto) % (0.0-3.0) Basophils (%) (Auto) % (0.0-2.0) Differential Total Cells Counted 100 Neutrophils % (Manual) 45 % (45-75) Lymphocytes % (Manual) 41 % (20-45) Monocytes % (Manual) 12 % (1-10) H Eosinophils % (Manual) 1 % (0-3) Basophils % (Manual) 1 % (0-2) Band Neutrophils 0 % (0-8) Platelet Estimate Adequate Platelet Morphology Normal Hypochromasia 1+ Anisocytosis 1+ Prothrombin Time 9.9 SEC (9.30-11.50) Prothrombin Time INR 0.9 (0.9-1.1) PTT 25 SEC (23-33) Sodium Level 139 MMOL/L (136-145) Potassium Level 4.5 MMOL/L (3.5-5.1) Chloride Level 101 MMOL/L (98-107) Carbon Dioxide Level 23 MMOL/L (21-32) Anion Gap 16 mmol/L (5-15) H Blood Urea Nitrogen 18 mg/dL (7-18) Creatinine 1.2 MG/DL (0.55-1.30) Estimate Glomerular Filtration Rate mL/min (>60) Glucose Level 109 MG/DL (74-106) H Calcium Level 10.7 MG/DL (8.5-10.1) H Total Bilirubin 0.4 MG/DL (0.2-1.0) Aspartate Amino Transferase (AST) 21 U/L (15-37) Alanine Aminotransferase (ALT) 24 U/L (12-78) Alkaline Phosphatase 52 U/L (46-116) Total Creatine Kinase 47 U/L (26-308) Troponin I 0.000 ng/mL (0.000-0.056) Pro-B-Type Natriuretic Peptide 71 pg/mL (0-125) Total Protein 8.7 G/DL (6.4-8.2) H Albumin 4.4 G/DL (3.4-5.0) Globulin 4.3 g/dL Albumin/Globulin Ratio 1.0 (1.0-2.7) EKG Diagnostic Results Rate: normal Rhythm: NSR ST Segments: no acute changes ASA given to the pt in ED: Yes Rhythm Strip Diag. Results EP Interpretation: yes Rhythm: NSR, no PVC's, no ectopy Chest X-Ray Diagnostic Results Chest X-Ray Diagnostic Results : Chest X-Ray Ordered: Yes # of Views/Limited/Complete: 1 View Indication: Chest Pain EP Interpretation: Yes Interpretation: no consolidation, no effusion, no pneumothorax, other - neck surgery Impression: Other Electronically Signed by: Electronically signed by Taurus Gill MD Last Vital Signs Date Time Temp Pulse Resp B/P (MAP) Pulse Ox O2 Delivery O2 Flow Rate FiO2 03/28/19 04:00 86 03/28/19 04:00 97.7 18 140/63 (88) 98 03/27/19 23:05 Room Air Status: improved Disposition: ADMITTED INPATIENT Condition: Serious Taurus Gill MD Mar 27, 2019 18:56
[2019-03-27 19:14] LABS: HEMATOCRIT 32.5 % (37.0-47.0); HEMOGLOBIN 10.3 G/DL (12.0-16.0); MEAN CORPUSCULAR VOLUME 86 FL (80-99); PLATELET COUNT 189 K/UL (150-450); RED BLOOD COUNT 3.77 M/UL (4.20-5.40); RED CELL DISTRIBUTION WIDTH 12.7 % (11.6-14.8)
[2019-03-27 19:22] LABS: INR 0.9 (0.9-1.1)
[2019-03-27 19:26] LABS: ANION GAP 16 mmol/L (5-15); BLOOD UREA NITROGEN 18 mg/dL (7-18); CALCIUM 10.7 MG/DL (8.5-10.1); CARBON DIOXIDE 23 MMOL/L (21-32); CHLORIDE 101 MMOL/L (98-107); CREATININE 1.2 MG/DL (0.55-1.30); POTASSIUM 4.5 MMOL/L (3.5-5.1); SODIUM 139 MMOL/L (136-145)
[2019-03-27 19:30] VITALS: BP 106/51
--- NOTE | 2019-03-27 19:30 | NUR ---
ED Nurse Note: Recieved pt on [place] awake, alert and oriented x 4, pt has patent iv line in right hand area, pt is in bed moaning and groaning stating she has neck pain at 10/10, pt is loudly crying, pt is on cardiac monitoring, denies cp at this time, pt is to be admitted to hosptal, will resume care as ordered and closely monitor and prepare for admissoin informed of pt pain level.
[2019-03-27 19:38] LABS: ALANINE AMINOTRANSFERASE 24 U/L (12-78); ALBUMIN 4.4 G/DL (3.4-5.0); ALKALINE PHOSPHATASE 52 U/L (46-116); ASPARTATE AMINO TRANSFERASE 21 U/L (15-37); BILIRUBIN,TOTAL 0.4 MG/DL (0.2-1.0); CREATINE KINASE 47 U/L (26-308)
--- NOTE | 2019-03-27 20:45 | NUR ---
ED Nurse Note: Pt continues to rest in bed, pt family member, aunt is at bedside speaking with md, pt is to be admitted, v/s stable, pt remains with pain in neck at 10/10, md to order more pain meds and pt to be taken to unit, will continue to closely monitor.
[2019-03-27 21:00] VITALS: BP 140/72
--- NOTE | 2019-03-27 21:35 | NUR ---
ED Nurse Note: Pt continues to rest quietly in bed, awake and alert, family members at bedside, pt now has room for admission, report called to floor nurse NATHALIA Snow, pt belongings list completed, pt being taken to floor bed via gughanshyam and brandon protocols with RN and ER-tech.
[2019-03-27 22:00] VITALS: BP 143/61
--- NOTE | 2019-03-27 22:01 | NUR ---
NURSE NOTES: Pt received from Cindi in ED. pt is alert and oriented x4. Is complaining of slight chest pain. On nasal cannula for shortness of breath. Calling Dr Kingston for admission orders. monitoring and evaluation advisor 5 lead applied. Pt oriented to room and belongings list reviewed at the bedside upon arrival. Bed is locked in lowest position, side rails x2. Will continue to monitor.
[2019-03-28] VITALS: BP 139/49
[2019-03-28 04:00] VITALS: BP 140/63
[2019-03-28] MEDS: Morphine Sulfate 2mg/ml Inj(IV/IM USE ONLY) IVP PRN ×4 (04:39→22:12)
[2019-03-28] MEDS: NovoLOG Insulin Flexpen SUBQ SCH ×4 (06:30→20:52)
[2019-03-28 07:26] LABS: BASOPHILS % (AUTO) 0.8 % (0.0-2.0); EOSINOPHILS % (AUTO) 0.8 % (0.0-3.0); HEMATOCRIT 28.1 % (37.0-47.0); HEMOGLOBIN 8.7 G/DL (12.0-16.0); LYMPHOCYTES % (AUTO) 29.5 % (20.0-45.0); MEAN CORPUSCULAR VOLUME 88 FL (80-99); MONOCYTES % (AUTO) 13.8 % (1.0-10.0); NEUTROPHILS % (AUTO) 55.1 % (45.0-75.0); PLATELET COUNT 180 K/UL (150-450); RED CELL DISTRIBUTION WIDTH 12.8 % (11.6-14.8); WHITE BLOOD COUNT 3.6 K/UL (4.8-10.8)
--- NOTE | 2019-03-28 07:45 | NUR ---
NURSE NOTES: Nurse report given by NATHALIA Hoffman. Patient's awake and comfortable in bed. Complains of sore throat and unable to swallow food. Confirmed with her the speech therapist will come to evaluate her soon. Besides that, denies pain, no s/s of distress or SOB. Bed lowest position, call light within reach, break engaged. Will continue to monitor.
[2019-03-28 08:00] VITALS: BP 110/64
--- NOTE | 2019-03-28 08:02 | NUR ---
HAND-OFF: Report given to NATHALIA Galeana
[2019-03-28 08:05] LABS: ALANINE AMINOTRANSFERASE 21 U/L (12-78); ALBUMIN 3.7 G/DL (3.4-5.0); ALKALINE PHOSPHATASE 40 U/L (46-116); ANION GAP 8 mmol/L (5-15); ASPARTATE AMINO TRANSFERASE 17 U/L (15-37); BILIRUBIN,TOTAL 0.5 MG/DL (0.2-1.0); BLOOD UREA NITROGEN 16 mg/dL (7-18); CALCIUM 9.6 MG/DL (8.5-10.1); CARBON DIOXIDE 29 MMOL/L (21-32); CHLORIDE 106 MMOL/L (98-107); POTASSIUM 4.4 MMOL/L (3.5-5.1); SODIUM 143 MMOL/L (136-145)
[2019-03-28] MEDS: metFORMIN 500mg tab ORAL SCH ×2 (08:52→17:38)
--- NOTE | 2019-03-28 11:07 | NUR ---
NOTES: REFERRED FOR SWALLOW EVAL BY DR MARKS, SEE EVAL IN CARE ACTIVITY SECTION. DYSPHAGIA RISK FACTORS FOR THIS 73 Y.O.F.: ACUTE ISSUES: ODYNOPHAGIA (PAIN WITH SWALLOWING), 126 TO 103 WEIGHT LOSS IN ONE YEAR PER PATIENT, CP, SOB H/O ANXIETY H/O A SIGNIFICANT DYSPHAGIA AND ODYNOPHAGIA (ONE YEAR SINCE CERVICAL SURGERY 10/2017. ANTERIOR FUSION HARDWARE 4 PLATES AND 4 SCREWS FROM C4 TO C7 AND PROBABLY TO T1 ANTERIORLY). HAS OSTEOPHYTES,ANKYLOSIS OF INTERVENING DISCS. AND C2-3 AND C4-5 POSTERIOR ELEMENTS IN THE RIGHT. SEE [facility] MBSS 03/27/19 SHOWED PERSISTENT PHARYNGEAL AND ESOPHAGEAL DYSPHAGIA BUT NO ASPIRATION JUST RISK AFTER SWALLOW, CLEARED ON REG TEXTURE DIET AND THIN LIQUIDS. AT [facility] DID NOT HAVE BEDSIDE SWALLOW EVAL BUT HAD MBSS 12/2018. PT HAD A FUNCTIONAL ORAL PHASE (HOLD BOLUS IN MOUTH UNTIL READY TO SWALLOW, SLOWER CHEWING). MILD TO MODERATE PHARYNGEAL PHASE DYSPHAGIA WITH REDUCED TONGUE BASE RETRACTION (EPIGLOTTIS DOES NOT INVERT) AND REDUCED PHARYNGEAL STRIPPING WAVE, ALSO HAD ESOPHAGEAL DYSPHAGIA AND RETENTION. NO ASPIRATION BUT HAD RISK. ENT CONSULT RECOMMENDED AT [facility] AND AT [facility] BUT NOT COMPLETED TO MY AND PT KNOWLEDGE. PLACED ON PUREED AND THIN LIQUID DIET. AT [facility] ON [facility] LIQUIFIED PUREED LIKE NECTAR THICK LIQUIDS OK TO HAVE THIN LIQUID DRINKS. POLST / AD REGARDING TF NOT IN CHART INITIAL IMPRESSIONS: S/S OF A PERSISTENT OROPHARYNGEAL DYSPHAGIA WITH INCREASED ORAL PREP AND OROPHARYNGEAL TRANSIT TIMES. GROSSLY FUNCTIONAL LIPS/TONGUE/VOICE/COUGH SHERMAN 3OZ WATER SWALLOW PROTOCOL GIVEN THIN LIQUIDS VIA STRAW SEQUENTIAL SIPS, NEEDS TO PAUSE AFTER 2-3 SIPS AND SWALLOWS WITH EFFORT, NEEDS EXTRA SWALLOW TO CLEAR PHARYNX. GLUCERNA ONE CAN TID CALORIE COUNT. NO OVERT S/S OF ASPIRATION BUT C/O ODYNOPHAGIA (8) GIVEN TSP PUREED, CHEWS ON IT FOR A FEW SECONDS AND SWALLOW 2 X WITH EFFORT, NO ORAL RESIDUE NOR OVERT ASPIRATION GIVEN 1/2 CRACKER, NEEDS TO MOISTEN IT IN WATER, CHEWS 10 SECONDS (WITH UPPER LOWER SLIGHTLY LOOSE DENTURES), EXTRA HARD SWALLOW, AND LIQUID WASH VIA CUP, NO ORAL RESIDUE, NO OVERT ASPIRATION . FAIR HYOLARYNGEAL EXCURSION. POOR INTAKE ON PUREED AND THIN LIQUID DIET 0 TO 25% TOO MUCH EFFORT AND PT STATES SHE LOST WT IN ONE YEAR. RECOMMENDATIONS: CONTINUE WITH PO INTAKE BUT DOWNGRADE TO CCHO-MED LIQUIFIED PUREED LIKE NECTAR THICK SOUP DIET AND OK TO HAVE THIN LIQUIDS ONE SIP AT A TIME USING POSTED ASPIRATION AND REFLUX PRECAUTIONS. NO NEED FOR MBSS SINCE SHE HAD ONE YESTERDAY. SKILLED DYSPHAGIA MANAGEMENT AND TX AND COG-COM EVAL/TX IF NEEDS (? RECENT MEMORY PROBLEMS). EDUCATED STAFF IN POSTED ASP/REFLUX PREC D/W NATHALIA CHILD AND WILL LEAVE MESSAGE WITH DR MILIAN Addendum: 03/28/19 at 1109 by CICI ZAPATA CONSIDER ENT CONSULT REGARDING ODYNOPHAGIA AND ? SPINE SURGEON
--- NOTE | 2019-03-28 11:17 | Cardiology Report ---
APPROVED REPORT EKG Measurement Heart [id number] Normal sinus rhythm Normal ECG
--- NOTE | 2019-03-28 11:18 | Diagnostic Imaging Report ---
Indication: Chest pain Technique: One view of the chest Comparison: 01/17/2019 Findings: Lungs and pleural spaces are clear. Heart size is normal. There is spinal fusion hardware in the cervical spine again noted. No significant interim change Impression: No acute process
[2019-03-28 12:00] VITALS: BP 108/54
--- NOTE | 2019-03-28 12:11 | NUR ---
RD ASSESSMENT & RECOMMENDATIONS SEE CARE ACTIVITY FOR COMPLETE ASSESSMENT DAILY ESTIMATED NEEDS: Needs based on Underweight, DM 51.4kg 30-35 kcals/kg 7848-8693 total kcals 1-1.5 g protein/kg 51-77 g total protein 25-30 mL/kg 2255-9985 total fluid mLs NUTRITION DIAGNOSIS: Swallowing difficulty r/t neck pain associated w/ spinal fusion surgery as evidenced by pt adm w/ painful swallowing, diet downgraded to liquify puree w/ NTL (CURRENT DIET: Now changed to CCHO MED liquify puree w/ NTL) PO DIET RECOMMENDATIONS: Liberalized regular diet w/ downgraded liquify puree texture ADDITIONAL RECOMMENDATIONS: 1. Add GLUCERNA 1 tetra toni TID 2. Obtain a standing weight as able-> OR calibrated bed scale wt 3. Monitor tolerance to texture 4. snacks in b/w meals as tolerated 5. Non oral feeds to meet est needs
--- NOTE | 2019-03-28 15:27 | History & Physical ---
History of Present Illness General Reason for Hospitalization: General Complaint Present Illness Allergies: Coded Allergies: CODEINE (Verified Allergy, Unknown, 01/17/19) Medication History Scheduled Atorvastatin Calcium* (Lipitor*), 10 MG ORAL BEDTIME, (Reported) Cholecalciferol (Vitamin D3)* (Vitamin D*), 1,000 UNIT ORAL DAILY, (Reported) Docusate Sodium* (Docusate Sodium*), 100 MG ORAL TWICE A DAY, (Reported) Enalapril Maleate* (Enalapril Maleate*), 20 MG ORAL EVERY 12 HOURS, (Reported) Gabapentin* (Neurontin*), 300 MG ORAL THREE TIMES A DAY, (Reported) Magnesium Citrate (Magnesium Citrate), 100 MG PO PRN, (Reported) Magnesium Oxide (Magnesium Oxide), 400 MG PO BID, (Reported) Metformin Hcl* (Metformin Hcl*), 1,000 MG ORAL TWICE A DAY, (Reported) Methocarbamol (Methocarbamol), 500 MG PO Q8, (Reported) Multivitamin With Minerals (Multivitamins With Minerals*), 1 TAB ORAL DAILY, ( Reported) Polyethylene Glycol 3350* (Miralax*), 17 GM ORAL DAILY, (Reported) Ranitidine Hcl* (Zantac*), 150 MG ORAL TWICE A DAY, (Reported) Sennosides (Senna), 2 TAB PO BEDTIME, (Reported) Scheduled PRN Benzocaine/Menthol (Sore Throat Lozenge), 1 EACH MM EVERY 2 HOURS PRN for sore throat, (Reported) D-Methorphan Hb/Prometh Hcl* (Promethazine-Dm Syrup*), 5 ML ORAL Q6H PRN for For Cough, (Reported) Hydrocodone Bit/Acetaminophen 5-325* ([place] 5-325*), 1 TAB ORAL Q4H PRN for Moderate Pain (Pain Scale 4-6), (Reported) Hydrocodone Bit/Acetaminophen 5-325* ([place] 5-325*), 2 TAB ORAL Q6H PRN for Severe Pain (Pain Scale 7-10), (Reported) Hydrocodone/Acetaminophen (Hydrocodon-Acetaminophn 10-325), 1 TAB ORAL Q4H PRN for For Pain, (Reported) Lactulose (Lactulose*), 30 ML ORAL Q6HR PRN for Constipation, (Reported) Ondansetron* (Zofran*), 4 MG ORAL Q6H PRN for Nausea & Vomiting, (Reported) Tramadol Hcl* (Ultram*), 50 MG ORAL Q6H PRN for Severe Pain (Pain Scale 7-10), ( Reported) Miscellaneous Medications Insulin Lispro (Humalog), (Reported) Patient History Healthcare decision maker N Resuscitation status Full Code Advanced Directive on File Review of Systems Review of Symptoms General ROS: no weight loss or fever Psychological ROS: no depression or mood changes, no memory loss Ophthalmic ROS: no visual changes or eye irritation ENT ROS: no nasal congestion, hearing loss, dizziness Allergy and Immunology ROS: no allergic symptoms or urticaria Hematological and Lymphatic ROS: no swollen glands, unusual bleeding or bruising Endocrine ROS: no polyuria, polydipsia, weight changes, temperature intolerance Respiratory ROS: no cough, rhonchi or wheezing/ reports left sided chest pain, greater with inspiration, reports sensation of SOB Cardiovascular ROS: chest pain/not reproducible Gastrointestinal ROS: denies abdominal pain, bright red blood in stool. Musculoskeletal ROS: no myalgias or arthralgias Neurological ROS: no TIA or stroke symptoms, QUALITY CONTROL TECHNICIAN intact, A&Ox4 Dermatological ROS: no new or changing skin lesions, rashes or pruritus Physical Exam Physical Exam General appearance: alert, cooperative, anxious appearing/rocking back and forth sitting up in bed Head: Normocephalic, without obvious abnormality, atraumatic Eyes: conjunctivae/corneas clear. PERRL, EOM's intact. Fundi benign Throat: Lips, mucosa, and tongue normal. Neck: supple, symmetrical, trachea midline, no adenopathy, thyroid: not enlarged, symmetric, no tenderness/mass/nodules, no carotid bruit and no JVD Lungs: clear to auscultation bilaterally, SpO2: 99% on 2L 02 NC Heart: regular rate and rhythm, S1, S2 normal, no murmur, click, rub or gallop EKG: NSR HR 89 Abdomen: soft, non-tender. Bowel sounds normal. No masses, no organomegaly Extremities: extremities normal, atraumatic, no cyanosis or edema Pulses: 2+ and symmetric Skin: Skin color, texture, turgor normal. No rashes or lesions Neurologic: Grossly normal, A&Ox4, QUALITY CONTROL TECHNICIAN intact Last 24 Hour Vital Signs Date Time Temp Pulse Resp B/P (MAP) Pulse Ox O2 Delivery O2 Flow Rate FiO2 03/28/19 12:00 90 03/28/19 12:00 98.3 86 20 108/54 (72) 100 03/28/19 09:00 Nasal Cannula 2.0 03/28/19 08:00 98.4 94 18 110/64 (79) 100 03/28/19 08:00 93 03/28/19 04:00 86 03/28/19 04:00 97.7 78 18 140/63 (88) 98 03/28/19 00:00 97.5 87 18 139/49 (79) 98 03/28/19 00:00 85 03/27/19 23:05 Room Air 03/27/19 22:00 98.3 99 20 143/61 (88) 98 03/27/19 21:45 98.4 98 17 140/72 100 Room Air 03/27/19 21:00 98.4 98 17 140/72 100 Room Air 03/27/19 19:30 98.4 96 17 106/51 100 Room Air 03/27/19 19:15 101 17 Room Air 03/27/19 18:58 97.9 03/27/19 18:26 121/56 03/27/19 17:58 98.5 17 120/88 100 Room Air 03/27/19 17:53 97.9 101 16 127/74 (91) 100 Room Air Intake and Output 03/27/19 03/28/19 19:00 07:00 # Voids 3 Laboratory Tests Test 03/27/19 18:30 03/28/19 05:50 White Blood Count 3.0 K/UL (4.8-10.8) L 3.6 K/UL (4.8-10.8) L Red Blood Count 3.77 M/UL (4.20-5.40) L 3.20 M/UL (4.20-5.40) L Hemoglobin 10.3 G/DL (12.0-16.0) L 8.7 G/DL (12.0-16.0) L Hematocrit 32.5 % (37.0-47.0) L 28.1 % (37.0-47.0) L Mean Corpuscular Volume 86 FL (80-99) 88 FL (80-99) Mean Corpuscular Hemoglobin 27.4 PG (27.0-31.0) 27.3 PG (27.0-31.0) Mean Corpuscular Hemoglobin Concent 31.7 G/DL (32.0-36.0) L 31.1 G/DL (32.0-36.0) L Red Cell Distribution Width 12.7 % (11.6-14.8) 12.8 % (11.6-14.8) Platelet Count 189 K/UL (150-450) 180 K/UL (150-450) Mean Platelet Volume 6.1 FL (6.5-10.1) L 6.2 FL (6.5-10.1) L Neutrophils (%) (Auto) % (45.0-75.0) 55.1 % (45.0-75.0) Lymphocytes (%) (Auto) % (20.0-45.0) 29.5 % (20.0-45.0) Monocytes (%) (Auto) % (1.0-10.0) 13.8 % (1.0-10.0) H Eosinophils (%) (Auto) % (0.0-3.0) 0.8 % (0.0-3.0) Basophils (%) (Auto) % (0.0-2.0) 0.8 % (0.0-2.0) Differential Total Cells Counted 100 Neutrophils % (Manual) 45 % (45-75) Lymphocytes % (Manual) 41 % (20-45) Monocytes % (Manual) 12 % (1-10) H Eosinophils % (Manual) 1 % (0-3) Basophils % (Manual) 1 % (0-2) Band Neutrophils 0 % (0-8) Platelet Estimate Adequate Platelet Morphology Normal Hypochromasia 1+ Anisocytosis 1+ Prothrombin Time 9.9 SEC (9.30-11.50) Prothromb Time International Ratio 0.9 (0.9-1.1) Activated Partial Thromboplast Time 25 SEC (23-33) Sodium Level 139 MMOL/L (136-145) 143 MMOL/L (136-145) Potassium Level 4.5 MMOL/L (3.5-5.1) 4.4 MMOL/L (3.5-5.1) Chloride Level 101 MMOL/L (98-107) 106 MMOL/L (98-107) Carbon Dioxide Level 23 MMOL/L (21-32) 29 MMOL/L (21-32) Anion Gap 16 mmol/L (5-15) H 8 mmol/L (5-15) Blood Urea Nitrogen 18 mg/dL (7-18) 16 mg/dL (7-18) Creatinine 1.2 MG/DL (0.55-1.30) 1.0 MG/DL (0.55-1.30) Estimat Glomerular Filtration Rate mL/min (>60) mL/min (>60) Glucose Level 109 MG/DL (74-106) H 85 MG/DL (74-106) Calcium Level 10.7 MG/DL (8.5-10.1) H 9.6 MG/DL (8.5-10.1) Total Bilirubin 0.4 MG/DL (0.2-1.0) 0.5 MG/DL (0.2-1.0) Aspartate Amino Transf (AST/SGOT) 21 U/L (15-37) 17 U/L (15-37) Alanine Aminotransferase (ALT/SGPT) 24 U/L (12-78) 21 U/L (12-78) Alkaline Phosphatase 52 U/L (46-116) 40 U/L (46-116) L Total Creatine Kinase 47 U/L (26-308) Troponin I 0.000 ng/mL (0.000-0.056) Pro-B-Type Natriuretic Peptide 71 pg/mL (0-125) Total Protein 8.7 G/DL (6.4-8.2) H 7.3 G/DL (6.4-8.2) Albumin 4.4 G/DL (3.4-5.0) 3.7 G/DL (3.4-5.0) Globulin 4.3 g/dL 3.6 g/dL Albumin/Globulin Ratio 1.0 (1.0-2.7) 1.0 (1.0-2.7) Microbiology Date/Time Source Procedure Growth Status 03/27/19 23:00 Rectum Received Height (Feet): 5 Height (Inches): 6.00 Weight (Pounds): 105 Medications Current Medications Medications (Trade) Dose Ordered Sig/Bree Route PRN Reason Start Time Stop Time Status Last Admin Dose Admin Acetaminophen (Tylenol) 650 mg Q6H ORAL 03/27/19 22:45 04/26/19 22:44 03/28/19 10:32 Atorvastatin Calcium (Lipitor) 10 mg BEDTIME ORAL 03/28/19 21:00 04/27/19 20:59 Dextrose (Dextrose 50%) 25 ml Q30M PRN IV Hypoglycemia 03/27/19 22:45 04/26/19 22:44 Dextrose (Dextrose 50%) 50 ml Q30M PRN IV Hypoglycemia 03/27/19 22:45 04/26/19 22:44 Gabapentin (Neurontin) 300 mg DAILY ORAL 03/28/19 09:00 04/27/19 08:59 03/28/19 08:52 Gabapentin (Neurontin) 600 mg QHS ORAL 03/28/19 21:00 04/27/19 20:59 Insulin Aspart (NovoLOG) BEFORE MEALS AND HS SUBQ 03/28/19 06:30 04/27/19 06:29 03/28/19 11:07 Metformin HCl (Glucophage) 1,000 mg TWICE A DAY ORAL 03/28/19 09:00 04/27/19 08:59 03/28/19 08:52 Morphine Sulfate (Morphine Sulfate) 2 mg Q4H PRN IVP Severe Pain (Pain Scale 7-10) 03/27/19 22:45 04/03/19 22:44 03/28/19 10:32 Ondansetron HCl (Zofran) 4 mg Q6H PRN IVP Nausea & Vomiting 03/27/19 22:45 04/26/19 22:44 Assessment/Plan Status: stable Status Narrative The patient remains stable. Her EKG shows NSR, chest x-ray is clear, and troponin is negative. She is on 2L O2NC and her SpO2 is 99%. The patient reports a history of taking anxiety medication, however she does not remember the name. She is not taking this medication now. She does not remember the last time she took it. The patient denies history of thromboembolic incidence. Will continue to monitor. Should patient present with tachycardia or decreased 02 on RA, will consider CT/PE. RN to check pt SpO2 when pt on RA, now. ~~RN reports SpO2 96% on RA. Will keep NC off and continue to monitor. 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 I have a high level of concern because . Patient is at high risk for . Plan of care/treatment include . Patient care is expected to be greater than 2 midnights. OBSERVATION level of care is warranted for this patient. Patient is a 89 year old with who presents with . Patient will be admitted for 1 midnight, but if additional night(s) is/are necessary, patient will be converted to inpatient status for the entire hospitalization Disposition: Once the patient is stable to leave the hospital, I anticipate the patient will likely be discharged to the following environment: Estimated discharge date: I spent 70 minutes on this patient's case, and minutes was dedicated to counseling and/or care coordination. MIPS (Merit-based Incentive Payment System) Applicable CPT: 50236, 13550 CHECK ALL THAT ARE MET: Measure #5 (CHF): All ages. Prescribe ZENAIDA/ARB upon discharge for patients with left ventricular systolic dysfunction. If not, the reason is clearly documented in the medical chart. Measure #8 (CHF): All ages. Prescribe a beta gary upon discharge for patients with left ventricular systolic dysfunction. If not, the reason is clearly documented in the medical chart. Measure #47 Advance care plan or surrogate decision maker documented in the medical record. Measure #130 The provider has documented, updated, or reviewed the patients current medication list and has documented it in the patients note. Measure #374 (All): Send report to referring provider. Measure #407(Sepsis due to MSSA bacteremia): Age 18+ Patient treated with a beta-lactam antibiotic (Nafcillin, Oxacillin or Cefazolin) as definitive therapy. MEDICAL COMPLEXITY High complexity medical decision making (need 2/3 categories) Problem - need 4 points Acute/new problem with new plan for workup (4 points, 1 max) Acute/new problem without additional workup (3 points, 1 max) Unstable chronic problem actively being managed (2 point each, 2 max) Stable chronic problem actively being managed (1 point each, 2 max) Self-limited/transient process (constipation, muscle ache, etc) (1 point each , 2 max) Data - need 4 points Reviewed labs/imaging studies (1 points, 2 max) Independent review of imaging (EKG, xrays, etc) (2 points, 2 max) Discussed case with consult/other MD/RN (2 points, 2 max) High Risk - qualify if have one of the following: Severe exacerbation of acute problem, acute mental status change, IV narcotics , monitoring drug levels (vancomycin, INR, tacrolimus etc) Nati Doll N.P. Mar 28, 2019 15:27
[2019-03-28] MEDS ORDERED: LORazepam 0.5mg tab ORAL SCH (15:29)
--- NOTE | 2019-03-28 15:50 | NUR ---
CASE MANAGEMENT:REVIEW 73 YR OLD FEMALE BIBA FROM [facility] CC: CHEST PAIN AND DIFFICULTY SWALLOWING SI: CHEST PAIN. NECK PAIN ANXIETY 97.9 101 16 127/74 100% ON RA WBC-3.0 TROPONIN(-) IS: ASA PO CHEST XRAY NITRO 1" IV MORPHINE IV ZOFRAN 500CC NS BOLUS IV ATIVAN XYLOCAINE VISCOUS + MYLANTA PO : TO TELEMETRY DCP: RETURN TO [facility]
[2019-03-28 16:00] VITALS: BP 112/52
--- NOTE | 2019-03-28 19:40 | NUR ---
HAND-OFF: Report given to NATHALIA Mullen. Plan of care endorsed.
--- NOTE | 2019-03-28 19:42 | NUR ---
NURSE NOTES: Received patient from NATHALIA Galeana, patient in stable condition, sleeping, responsive to stimuli, no distress, IV on L forearm, asymptomatic, intact, patent, bed low&locked, call light within reach, side rails up X3, will continue to monitor and reassess.
[2019-03-28 20:00] VITALS: BP 110/55
[2019-03-29] VITALS: BP 110/57
[2019-03-29 04:00] VITALS: BP 113/56
[2019-03-29] MEDS: NovoLOG Insulin Flexpen SUBQ SCH ×4 (06:21→21:16)
--- NOTE | 2019-03-29 07:42 | NUR ---
HAND-OFF: Report given to NATHALIA Bernal, patient in stable condition, plan of care endorsed.
--- NOTE | 2019-03-29 07:54 | NUR ---
NURSE NOTES: Received report from NATHALIA Mullen. Pt is sitting up in bed eating her breakfast. Bed is in lowest position, side rails up X2, and call light is within reach. Will continue to monitor.
[2019-03-29 08:00] VITALS: BP 113/44
[2019-03-29] MEDS: metFORMIN 500mg tab ORAL SCH ×2 (08:10→17:22)
[2019-03-29] MEDS: Morphine Sulfate 2mg/ml Inj(IV/IM USE ONLY) IVP PRN ×3 (08:11→22:51)
[2019-03-29 12:00] VITALS: BP 101/46
--- NOTE | 2019-03-29 12:14 | Nephrology Progress Note ---
Assessment/Plan Problem List: (1) neck pain, weakness (2) Anxiety (3) Chest pain Assessment Neuro: A&Ox4, PARAPROFESSIONAL INTERPRETER intact HEENT: head atraum, neck supple, nose/mouth pink/moist mucosa, throat w/o lymphadenopathy CVS: RRR Lungs: clear/no cough Chest: ttp, pain at rest Abd: no ttp, no organomegaly, soft/no guarding GI/: no n/v/d/c extremities: 2+pop/pedal/warm Plan This patient has reproducible chest pain with palpation and also at rest. Her chest x-ray was negative and she denies any trauma or change in activity. Her troponin was negative, and her EKG normal. Considered possible anxiety, however pt did not receive relief with Lorazepam, but is receiving relief with Nitro- Bid. Will consult Cardiology to verify etiology is not of cardiac origin. Then will consider discharge to follow up with PMD if cleared. Subjective Constitutional: Reports: no symptoms HEENT: Reports: no symptoms Genitourinary: Reports: no symptoms Neurologic/Psychiatric: Reports: no symptoms Subjective The patient reports decreased pain to the chest and her neck, however she states the pain is reproducible with palpation and is also present at rest. She states the pain is 3/10 somewhat resolved by Nitro-Bid. Objective Objective Last 24 Hour Vital Signs Date Time Temp Pulse Resp B/P (MAP) Pulse Ox O2 Delivery O2 Flow Rate FiO2 03/29/19 09:00 Nasal Cannula 2.0 03/29/19 08:00 98.2 89 20 113/44 (67) 100 03/29/19 04:00 97.5 81 18 113/56 (75) 100 03/29/19 04:00 76 03/29/19 00:00 86 03/29/19 00:00 97.9 87 18 110/57 (74) 100 03/28/19 21:00 Nasal Cannula 2.0 03/28/19 20:00 97.9 91 18 110/55 (73) 97 03/28/19 20:00 84 03/28/19 16:00 86 03/28/19 16:00 98.0 89 18 112/52 (72) 100 03/28/19 12:00 90 03/28/19 12:00 98.3 86 20 108/54 (72) 100 Intake and Output 03/28/19 03/29/19 19:00 07:00 Intake Total 580 ml Output Total 400 ml Balance 180 ml Intake Oral 580 ml Output Urine Total 400 ml # Voids 2 # Bowel Movements 1 1 Height (Feet): 5 Height (Inches): 6.00 Weight (Pounds): 112 General Appearance: WD/WN, no apparent distress, alert EENT: PERRL/EOMI, normal ENT inspection Neck: non-tender, supple, normal inspection Cardiovascular: normal peripheral pulses, normal rate, regular rhythm Respiratory/Chest: lungs clear, normal breath sounds, no respiratory distress Abdomen: normal bowel sounds, non tender Extremities: normal range of motion, non-tender Neurologic: terrazzo mechanic helper II-XII grossly normal, no motor/sensory deficits, alert, oriented x 3, normal mood/affect Nati Doll N.P. Mar 29, 2019 12:14
--- NOTE | 2019-03-29 12:38 | NUR ---
CASE MANAGEMENT:REVIEW 03/29/19 SI: CHEST PAIN. NECK PAIN. ANXIETY 98.2 89 20 113/44 100% ON 2L/NC NO LABS FOR TODAY IS: NEURONTIN PO QHS METFORMIN PO BID IV MORPHINE Q4HRS PRN : TELEMETRY STATUS DCP: FROM [facility]
--- NOTE | 2019-03-29 12:41 | CDS Physician Query ---
Clarification is required for compliance, coding accuracy, and to reflect severity of illness for this patient Dear Dr. Mat Kingston Date 03/29/2019 Batch Dumper/CDS' Name Kimberli Marquez Clinical Documentation states: 03/29 note: Patient has reproducible chest pain with palpation and also at rest. Her chest x-ray was negative and she denies any trauma or change in activity. Her troponin was negative, and her EKG normal. Considered possible anxiety, however pt did not receive relief with Lorazepam, but is receiving relief with Nitro-Bid. Please document the suspected etiology of Chest Pain: [X] Costochondritis [] Acute myocardial infarction [] Acute Coronary Syndrome [] Pericarditis [] Anxiety [] Cancer [] Pneumonia [] GERD/Esophagitis [] Other: [] Unable to determine Present on Admission: [] Yes [] No [] Clinically Undetermined Physician signature Date Please also document in your Progress Notes and/or Discharge Summary and indicate if the condition was present on admission. KADI
--- NOTE | 2019-03-29 12:44 | NUR ---
DISCHARGE PLANNING PATIENT IS FROM [facility] AND WILL RETURN UPON DISCHARGE WAITING FOR OFFICIAL DISCHARGE ORDER
--- NOTE | 2019-03-29 12:49 | CDS Physician Query ---
Clarification is required for compliance, coding accuracy, and to reflect severity of illness for this patient Dear Dr. Mat Kingston Date: 03/29/2019 Rotary Veneer Machine Operator/CDS Name: Kimberli Marquez 73 yo F admitted for chest pain with RD note stating: Needs based on Underweight , DM 51.4kg...Swallowing difficulty r/t neck pain associated w/ spinal fusion surgery as evidenced by pt adm w/ painful swallowing, diet downgraded to liquify puree w/ NTL BMI 18.1 Please select the most appropriate option: [] Underweight [X] Protein/Calorie Malnutrition [] Mild [] Moderate [] Severe [] Hypoalbuminemia [] Cachexia [] Intestinal malabsorption [] Other [] Unable to determine [] Not Applicable Present on Admission: [X] Yes [] No [] Clinically Undetermined Physician signature Date Please also document in your Progress Notes and/or Discharge Summary and indicate if the condition was present on admission. TAED
--- NOTE | 2019-03-29 15:14 | NUR ---
NURSE NOTES: Report was given to NATHALIA Farnsworth at [facility]. ETA is [phone]
[2019-03-29 16:00] VITALS: BP 128/54
--- NOTE | 2019-03-29 19:00 | NUR ---
NURSE NOTES: Received patient from NATHALIA Bernal, patient in stable condition, lying in bed, comfortably, AOx4, denies pain at this time, watching tv, IV site on L forearm,G20, asymptomatic, intact, patent, bed low&locked, side rails upx3, call light within reach, will continue to monitor and reassess.
--- NOTE | 2019-03-29 19:08 | NUR ---
HAND-OFF: Report given to NATHALIA Mullen. Plan of care endorsed
[2019-03-29 20:00] VITALS: BP 119/51
[2019-03-30] VITALS: BP 114/57
[2019-03-30 04:00] VITALS: BP 98/45
[2019-03-30] MEDS: NovoLOG Insulin Flexpen SUBQ SCH ×4 (06:11→20:27)
[2019-03-30 06:28] LABS: BASOPHILS % (AUTO) 0.7 % (0.0-2.0); EOSINOPHILS % (AUTO) 3.2 % (0.0-3.0); HEMATOCRIT 29.7 % (37.0-47.0); HEMOGLOBIN 9.2 G/DL (12.0-16.0); LYMPHOCYTES % (AUTO) 33.7 % (20.0-45.0); MEAN CORPUSCULAR VOLUME 88 FL (80-99); MONOCYTES % (AUTO) 9.5 % (1.0-10.0); PLATELET COUNT 180 K/UL (150-450); RED BLOOD COUNT 3.39 M/UL (4.20-5.40); RED CELL DISTRIBUTION WIDTH 12.8 % (11.6-14.8); WHITE BLOOD COUNT 3.7 K/UL (4.8-10.8)
[2019-03-30 06:43] LABS: ANION GAP 6 mmol/L (5-15); BLOOD UREA NITROGEN 12 mg/dL (7-18); CALCIUM 9.9 MG/DL (8.5-10.1); CARBON DIOXIDE 30 MMOL/L (21-32); CHLORIDE 105 MMOL/L (98-107); CREATININE 0.9 MG/DL (0.55-1.30); POTASSIUM 4.2 MMOL/L (3.5-5.1); SODIUM 141 MMOL/L (136-145)
[2019-03-30] MEDS: Morphine Sulfate 2mg/ml Inj(IV/IM USE ONLY) IVP PRN ×4 (06:45→23:51)
--- NOTE | 2019-03-30 07:40 | NUR ---
HAND-OFF: Report given to NATHALIA Cadena, patient in stable condition, plan of care endorsed.
[2019-03-30 08:00] VITALS: BP 120/50
--- NOTE | 2019-03-30 08:36 | NUR ---
NURSE NOTES pt awake and talking AOx4. Pt. just had breakfast. Pt on cafeteria monitor, no signs of cardiac or respiratory distress at this time. Pt. bed is lowest position and locked. Call light is within the reach of pt. Will continue to monitor plan of care.
--- NOTE | 2019-03-30 09:27 | NUR ---
DISCHARGE PLANNING FAXED CLINICALS TO [facility] A[facility] SWANN T: [phone] F: [phone] AWAIT OFFICIAL DISCHARGE ORDER
[2019-03-30] MEDS: metFORMIN 500mg tab ORAL SCH ×2 (09:46→17:19)
[2019-03-30 12:00] VITALS: BP 110/50
--- NOTE | 2019-03-30 12:12 | General Progress Note ---
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 Dai is endorsing chest pain/chest pressure/sob/neck pain/headache/ intermittent nausea w/o emesis with these symptoms that are intermittent but ongoing and worsening today and accompanied with new onset generalized weakness and left arm weakness. Objective Last 24 Hour Vital Signs Date Time Temp Pulse Resp B/P (MAP) Pulse Ox O2 Delivery O2 Flow Rate FiO2 03/30/19 08:00 97.9 81 24 120/50 (73) 90 03/30/19 08:00 85 03/30/19 04:00 98.2 81 19 98/45 (62) 98 03/30/19 04:00 73 03/30/19 00:00 98.3 79 19 114/57 (76) 99 03/30/19 00:00 77 03/29/19 21:00 Nasal Cannula 2.0 03/29/19 20:00 91 03/29/19 20:00 97.8 89 18 119/51 (73) 98 03/29/19 16:00 98.4 93 19 128/54 (78) 100 03/29/19 16:00 90 03/29/19 12:00 88 03/29/19 12:00 98.4 85 19 101/46 (64) 100 Intake and Output 03/29/19 03/30/19 19:00 07:00 Intake Total 340 ml 200 ml Output Total 650 ml Balance 340 ml -450 ml Intake Oral 340 ml 200 ml Output Urine Total 650 ml # Voids 2 1 # Bowel Movements 1 1 Laboratory Tests 03/30/19 06:15: White Blood Count 3.7L, Red Blood Count 3.39L, Hemoglobin 9.2L, Hematocrit 29.7L , Mean Corpuscular Volume 88, Mean Corpuscular Hemoglobin 27.2, Mean Corpuscular Hemoglobin Concent 31.1L, Red Cell Distribution Width 12.8, Platelet Count 180, Mean Platelet Volume 6.1L, Neutrophils (%) (Auto) 53.0, Lymphocytes (%) (Auto) 33.7, Monocytes (%) (Auto) 9.5, Eosinophils (%) (Auto) 3.2H, Basophils (%) (Auto) 0.7, Sodium Level 141, Potassium Level 4.2, Chloride Level 105, Carbon Dioxide Level 30, Anion Gap 6, Blood Urea Nitrogen 12, Creatinine 0.9, Estimat Glomerular Filtration Rate , Glucose Level 105, Calcium Level 9.9 Height (Feet): 5 Height (Inches): 6.00 Weight (Pounds): 112 General Appearance: mild distress, alert oriented x3 EENT: PERRL/EOMI Neck: supple, normal inspection, tenderness, tender lateral, tender midline Cardiovascular: normal peripheral pulses, normal rate, regular rhythm, no gallop/murmur Respiratory/Chest: lungs clear, normal breath sounds Abdomen: normal bowel sounds, non tender, soft, no organomegaly Extremities: normal range of motion, non-tender, normal inspection, normal capillary refill Edema: no edema noted Arm (L), no edema noted Arm (R), no edema noted Leg (L), no edema noted Leg (R) 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 Her left arm remains at her side. She is wearing 2L 02 NC, which RN states is there for "comfort, due to sob." She endorses some relief of chest pain with nitro-bid. She denies relief with Lorazepam. She denies hx of GERD or cardiac hx. Her original EKG, Troponin and chest x ray were negative. Nati Doll N.P. Mar 30, 2019 12:12
[2019-03-30 16:00] VITALS: BP 134/68
--- NOTE | 2019-03-30 18:28 | Cardiology Progress Note ---
Subjective Subjective [id number] Objective Last 24 Hour Vital Signs Date Time Temp Pulse Resp B/P (MAP) Pulse Ox O2 Delivery O2 Flow Rate FiO2 03/30/19 16:00 85 03/30/19 16:00 98.1 86 21 134/68 (90) 90 03/30/19 12:00 98.1 77 21 110/50 (70) 90 03/30/19 12:00 79 03/30/19 09:00 Nasal Cannula 2.0 03/30/19 08:00 97.9 81 24 120/50 (73) 90 03/30/19 08:00 85 03/30/19 04:00 98.2 81 19 98/45 (62) 98 03/30/19 04:00 73 03/30/19 00:00 98.3 79 19 114/57 (76) 99 03/30/19 00:00 77 03/29/19 21:00 Nasal Cannula 2.0 03/29/19 20:00 91 03/29/19 20:00 97.8 89 18 119/51 (73) 98 Intake and Output 03/29/19 03/30/19 19:00 07:00 Intake Total 340 ml 200 ml Output Total 650 ml Balance 340 ml -450 ml Intake Oral 340 ml 200 ml Output Urine Total 650 ml # Voids 2 1 # Bowel Movements 1 1 Laboratory Tests Test 03/30/19 06:15 03/30/19 06:20 White Blood Count 3.7 K/UL (4.8-10.8) L Red Blood Count 3.39 M/UL (4.20-5.40) L Hemoglobin 9.2 G/DL (12.0-16.0) L Hematocrit 29.7 % (37.0-47.0) L Mean Corpuscular Volume 88 FL (80-99) Mean Corpuscular Hemoglobin 27.2 PG (27.0-31.0) Mean Corpuscular Hemoglobin Concent 31.1 G/DL (32.0-36.0) L Red Cell Distribution Width 12.8 % (11.6-14.8) Platelet Count 180 K/UL (150-450) Mean Platelet Volume 6.1 FL (6.5-10.1) L Neutrophils (%) (Auto) 53.0 % (45.0-75.0) Lymphocytes (%) (Auto) 33.7 % (20.0-45.0) Monocytes (%) (Auto) 9.5 % (1.0-10.0) Eosinophils (%) (Auto) 3.2 % (0.0-3.0) H Basophils (%) (Auto) 0.7 % (0.0-2.0) Sodium Level 141 MMOL/L (136-145) Potassium Level 4.2 MMOL/L (3.5-5.1) Chloride Level 105 MMOL/L (98-107) Carbon Dioxide Level 30 MMOL/L (21-32) Anion Gap 6 mmol/L (5-15) Blood Urea Nitrogen 12 mg/dL (7-18) Creatinine 0.9 MG/DL (0.55-1.30) Estimat Glomerular Filtration Rate mL/min (>60) Glucose Level 105 MG/DL (74-106) Calcium Level 9.9 MG/DL (8.5-10.1) Troponin I 0.000 ng/mL (0.000-0.056) Microbiology Date/Time Source Procedure Growth Status 03/27/19 23:00 Nasal Nares MRSA Culture - Final NO METHICILLIN RESISTANT STAPH AUREUS... Complete 03/27/19 23:00 Rectum - Final NO CARBAPENEM-RESISTANT ENTEROBACTERI... Complete 03/27/19 23:00 Rectum VRE Culture - Final NO VANCOMYCIN RESISTANT ENTEROCOCCUS ... Complete Amelia Burnett MD Mar 30, 2019 18:28
--- NOTE | 2019-03-30 19:21 | NUR ---
HAND-OFF: Report given to Ashwini vigil. pt in stable condition will b . Addendum: 03/30/19 at 2 by Tammi Molina RN Report given to Ashwini vigil. pt in stable condition will be having a stress test tomorrow NPO starting midnight, no coffee or chocolate
--- NOTE | 2019-03-30 19:23 | NUR ---
NURSE NOTES: Received pt from NATHALIA Cadena. Pt awake, alert, and talkative. Bed in lowest position. Call light within reach. Will continue to monitor.
--- NOTE | 2019-03-30 19:45 | Consultation ---
DATE OF CONSULTATION: 03/30/2019 CARDIOLOGY CONSULTATION CONSULTING PHYSICIAN: Amelia Burnett M.D. PATIENT ID: This is a 73-year-old female. HISTORY OF PRESENT ILLNESS: The patient came with chest pain and she reported that she has left-sided pressure, something sitting on her chest, and it is on and off. It started about a week ago, getting progressively worse. There is no radiation, but she also has choking sensation in her throat. The patient is not sure if she ever had anything like that happened before. She otherwise does not have any significant complaints. There is no PND or orthopnea. No palpitations. No syncope. No lower extremity edema. PAST MEDICAL HISTORY: Significant for diabetes, hypertension, problem with swallowing in the past, and pneumonia. She denies any previous cardiac history. ALLERGIES: There is allergy to codeine. MEDICATIONS: Her home medications were all reviewed. HABITS: She denies history of drinking, smoking, or drug abuse. SOCIAL HISTORY: She now resides in a retirement. REVIEW OF SYSTEMS: Significant for dizziness. There is no fever, chills, vomiting. She has some nausea. PHYSICAL EXAMINATION: GENERAL: This is elderly female, resting in bed. VITAL SIGNS: Blood pressure is 110/50, heart rate is 77, temperature is 98.1, oxygen saturation is 98% on 2 liters. HEENT: PERRLA. EOMI. NECK: Supple. Jugular venous pressure is not elevated. She has preserved carotid upstroke. There is a bruit on the left side. No thyromegaly. LUNGS: Few crackles at bases. BREASTS: No significant lumps. HEART: She has slightly diminished S1. She has positive S4. ABDOMEN: Soft. There is no tenderness. Bowel sounds are present. EXTREMITIES: Lower extremity trace edema. DIAGNOSTIC AND LABORATORY DATA: EKG is unremarkable, but there is a poor R-wave progression suggesting that there is a septal infarct because of the small R-wave in V2. The chest x-ray is unremarkable. Troponin is negative. The laboratory data significant for low white count, low platelets, and low hemoglobin 9.2. The chemistry is unremarkable. Troponin was negative. Urinalysis is pending. IMPRESSION AND RECOMMENDATION: This patient has atypical chest pain and there is no objective evidence of ongoing acute coronary syndrome. However, because of multiple coronary risk factors including diabetes, hypertension, and hyperlipidemia, I believe that we need to proceed with noninvasive ischemia assessment and I am going to order stress nuclear scan. Thank you very much for your consultation. I will follow the results with you tomorrow. Amelia Burnett M.D. DR: NOE JOB#: [id number] CC:
[2019-03-30 20:00] VITALS: BP 123/53
[2019-03-31] VITALS (7 sets, daily range): BP systolic 99–148; BP diastolic 50–75
--- NOTE | 2019-03-31 02:15 | NUR ---
NURSE NOTES: Received patient asleep but arousable to name, lying in semi purcell's; resting comfortably. A/O x 4. Denies pain at this time. No signs of acute cardiorespiratory distress noted. Checked IV site intact and flushed. No erythema, bleeding or infiltration noted. Bed at lowest position, brakes on, siderails x 3. Call light within reach. Will continue to monitor.
[2019-03-31] MEDS: Morphine Sulfate 2mg/ml Inj(IV/IM USE ONLY) IVP PRN (06:01)
[2019-03-31] MEDS: NovoLOG Insulin Flexpen SUBQ SCH ×4 (06:08→22:57)
[2019-03-31 06:31] LABS: BASOPHILS % (AUTO) 0.8 % (0.0-2.0); EOSINOPHILS % (AUTO) 2.2 % (0.0-3.0); HEMATOCRIT 27.7 % (37.0-47.0); HEMOGLOBIN 8.7 G/DL (12.0-16.0); LYMPHOCYTES % (AUTO) 32.1 % (20.0-45.0); MEAN CORPUSCULAR VOLUME 88 FL (80-99); MONOCYTES % (AUTO) 11.7 % (1.0-10.0); NEUTROPHILS % (AUTO) 53.2 % (45.0-75.0); PLATELET COUNT 172 K/UL (150-450); RED BLOOD COUNT 3.16 M/UL (4.20-5.40); RED CELL DISTRIBUTION WIDTH 12.8 % (11.6-14.8); WHITE BLOOD COUNT 4.1 K/UL (4.8-10.8)
[2019-03-31 06:47] LABS: ANION GAP 7 mmol/L (5-15); BLOOD UREA NITROGEN 10 mg/dL (7-18); CALCIUM 9.3 MG/DL (8.5-10.1); CARBON DIOXIDE 29 MMOL/L (21-32); CHLORIDE 105 MMOL/L (98-107); CREATININE 0.9 MG/DL (0.55-1.30); POTASSIUM 4.1 MMOL/L (3.5-5.1); SODIUM 141 MMOL/L (136-145)
--- NOTE | 2019-03-31 07:27 | NUR ---
HAND-OFF: Report given to NATHALIA Yao. Patient is in stable condition. Plan of care endorsed.
[2019-03-31] MEDS ORDERED: Lexiscan 0.4mg/5ml syringe IV PRN (08:00)
--- NOTE | 2019-03-31 08:13 | NUR ---
NURSE NOTES: Pt in bed in low position with HOB in fowlers, call light at bedside, IV intact and patent, scheduled for a stress test and 2D echo, if cleared by cardio pt can d/c, pt states she has chest pain on inspiration, pt is slightly frail, Ox4 occitan and nigerien speaking, currently NPO, MS given prior to shift, no s/s of distress or sob noted.
[2019-03-31] MEDS: metFORMIN 500mg tab ORAL SCH ×2 (09:38→17:22)
--- NOTE | 2019-03-31 10:43 | Nephrology Progress Note ---
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 Her chest x-ray was negative and she denies any trauma or change in activity. Her troponin was negative x2, two days apart, and her EKGs x2 were also normal. Cardiology consulted and pt assessed (see Dr. Burnett Cardiology notes). Pt to receive nuclear stress test today. Spoke with Edgar in Nuclear medicine, the first set of images have been completed. At approximately 1330, Dr. Alfred will complete the rest of the study which should be done by 1500. Will await further details. Subjective Constitutional: Reports: no symptoms Genitourinary: Reports: no symptoms Neurologic/Psychiatric: Reports: no symptoms Subjective The patient reports the same sensations as yesterday including chest pain/ intermittent pressure, lateral neck pain and sob. She denies any new signs or symptoms, questions or concerns. Objective Objective Last 24 Hour Vital Signs Date Time Temp Pulse Resp B/P (MAP) Pulse Ox O2 Delivery O2 Flow Rate FiO2 03/31/19 08:32 Nasal Cannula 2.0 03/31/19 08:00 97.7 90 16 103/50 (67) 100 03/31/19 07:46 85 03/31/19 04:00 80 03/31/19 04:00 98.3 91 18 99/53 (68) 100 03/31/19 00:00 80 03/31/19 00:00 98.0 82 18 128/59 (82) 100 03/30/19 21:00 Nasal Cannula 2.0 03/30/19 20:00 86 03/30/19 20:00 98.4 85 18 123/53 (76) 98 03/30/19 16:00 85 03/30/19 16:00 98.1 86 21 134/68 (90) 90 03/30/19 12:00 98.1 77 21 110/50 (70) 90 03/30/19 12:00 79 Intake and Output 03/30/19 03/31/19 18:59 06:59 Intake Total 100 ml 120 ml Output Total 650 ml Balance -550 ml 120 ml Intake Oral 100 ml 120 ml Output Urine Total 650 ml # Voids 1 1 # Bowel Movements 2 1 Laboratory Tests 03/31/19 05:15: White Blood Count 4.1L, Red Blood Count 3.16L, Hemoglobin 8.7L, Hematocrit 27.7L , Mean Corpuscular Volume 88, Mean Corpuscular Hemoglobin 27.5, Mean Corpuscular Hemoglobin Concent 31.3L, Red Cell Distribution Width 12.8, Platelet Count 172, Mean Platelet Volume 6.6, Neutrophils (%) (Auto) 53.2, Lymphocytes (%) (Auto) 32.1, Monocytes (%) (Auto) 11.7H, Eosinophils (%) (Auto) 2.2, Basophils (%) (Auto) 0.8, Sodium Level 141, Potassium Level 4.1, Chloride Level 105, Carbon Dioxide Level 29, Anion Gap 7, Blood Urea Nitrogen 10, Creatinine 0.9, Estimat Glomerular Filtration Rate , Glucose Level 98, Calcium Level 9.3 Height (Feet): 5 Height (Inches): 6.00 Weight (Pounds): 112 General Appearance: no apparent distress, alert EENT: PERRL/EOMI Neck: normal alignment, supple, normal inspection Cardiovascular: normal peripheral pulses, normal rate, regular rhythm Respiratory/Chest: lungs clear, normal breath sounds Abdomen: normal bowel sounds, non tender, soft, no organomegaly Extremities: non-tender, normal inspection, normal capillary refill Neurologic: pinion staker II-XII grossly normal, no motor/sensory deficits, alert, oriented x 3, normal mood/affect Nati Doll N.P. Mar 31, 2019 10:43
--- NOTE | 2019-03-31 11:33 | NUR ---
CASE MANAGEMENT:REVIEW 03/29/19 SI: CHEST PAIN. NECK PAIN. ANXIETY 97.7 90 16 103/50 100% ON 2L/NC H/H-8.7/27.7 IS: IV LEXISCAN NEURONTIN PO QHS LIPITOR PO QHS METFORMIN PO BID IV MORPHINE Q4HRS PRN : TELEMETRY STATUS DCP: FROM [facility] PLAN: STRESS TEST
--- NOTE | 2019-03-31 11:40 | NUR ---
DISCHARGE PLANNING NO DISCHARGE ORDER NOTED IF DISCHARGED OVER THE WEEKEND PATIENT WILL BE ACCEPTED BACK TO [facility] [address] [facility] T:[phone] ROOM 217 BED CONFIRMED WITH BURNISHERJAZMÍN
--- NOTE | 2019-03-31 14:04 | NUR ---
RD ASSESSMENT & RECOMMENDATIONS SEE CARE ACTIVITY FOR COMPLETE ASSESSMENT DAILY ESTIMATED NEEDS: Needs based on Underweight, DM 51.4kg 30-35 kcals/kg 4894-5143 total kcals 1-1.5 g protein/kg 51-77 g total protein 25-30 mL/kg 6847-8719 total fluid mLs NUTRITION DIAGNOSIS: Swallowing difficulty r/t neck pain associated w/ spinal fusion surgery as evidenced by pt adm w/ painful swallowing, diet downgraded to liquify puree w/ NTL CURRENT DIET:CCHO MED liquify puree w/ NTL -> NPO today for stress test PO DIET RECOMMENDATIONS: Liberalized regular diet w/ downgraded texture ADDITIONAL RECOMMENDATIONS: 1. Add GLUCERNA 1 tetra toni TID 2. Obtain a standing weight as able-> OR calibrated bed scale wt 3. Monitor tolerance to texture 4. snacks in b/w meals as tolerated 5. Non oral feeds to meet est needs
--- NOTE | 2019-03-31 15:28 | NUR ---
NM Myocardial perfusion scan complete.
--- NOTE | 2019-03-31 16:01 | Diagnostic Imaging Report ---
Indication: chest pain Technique: The study was conducted under the supervision of a casino investigator. lexiscan (regadenoson) infusion over 10 seconds followed by intravenous administration of 82.2 mCi of technetium 99m Myoview was performed. Three plane SPECT imaging of the heart was then performed. A resting study was performed as part of the one-day protocol with 11 mCi of technetium 99m myoview injected intravenously at that time. Three plane SPECT imaging of the heart was obtained. Comparison: None Clinical data: 1. Clinical response: Non ischemic 2. Electrocardiographic response: Non ischemic Findings: The myocardial perfusion scan demonstrates no fixed or reversible perfusion defects. Left ventricular ejection fraction was estimated at 90% which is overestimated. IMPRESSION: Negative myocardial perfusion scan
--- NOTE | 2019-03-31 16:15 | Cardiology Report ---
APPROVED REPORT EXAM: Two-dimensional and M-mode echocardiogram with Doppler and color Doppler. INDICATION Abnormal cardiac function study M-Mode DIMENSIONS IVSd1.0 (0.7-1.1cm)Left Atrium (MM)2.6 (1.6-4.0cm) LVDd3.8 (3.5-5.6cm)Aortic Root2.4 (2.0-3.7cm) PWd1.0 (0.7-1.1cm)Aortic Cusp Exc.1.6 (1.5-2.0cm) IVSs1.5 cm LVDs2.7 (2.5-4.0cm) PWs1.2 cm Normal left ventricular chamber size, systolic function and wall motion. Left ventricular ejection fraction estimated to be 65%. No evidence of left ventricular hypertrophy. No evidence of pericardial effusion. All other cardiac chamber sizes are within normal limits. Focal aortic valve sclerosis with adequate cusp excursion. Thickened mitral valve leaflets with normal excursion. Mitral annulus and aortic root calcification. Pulmonic valve not well visualized. Normal tricuspid valve structure. IVC at normal size with slight physiologic collapse. A color flow and spectral Doppler study was performed and revealed: No aortic regurgitation. Trace mitral regurgitation. Mitral diastolic velocities suggest reduced left ventricular relaxation c/w mild LV diastolic dysfunction (Grade I). Mild tricuspid regurgitation. Tricuspid systolic velocities suggests peak right ventricular systolic pressure of 28 mmHg.
--- NOTE | 2019-03-31 16:42 | Cardiology Report ---
APPROVED REPORT EKG Measurement Heart [id number] Normal sinus rhythm Septal infarct, age undetermined Abnormal ECG
--- NOTE | 2019-03-31 16:48 | Cardiology Progress Note ---
Assessment/Plan Assessment/Plan Reviewed stress test was normal, the patient has negative work up and is stable for discharge Subjective Subjective The patient resting in bed, she still has chest pain. Objective Last 24 Hour Vital Signs Date Time Temp Pulse Resp B/P (MAP) Pulse Ox O2 Delivery O2 Flow Rate FiO2 03/31/19 12:00 97.1 84 16 125/60 (81) 100 03/31/19 11:42 85 03/31/19 08:32 Nasal Cannula 2.0 03/31/19 08:00 97.7 90 16 103/50 (67) 100 03/31/19 07:46 85 03/31/19 04:00 80 03/31/19 04:00 98.3 91 18 99/53 (68) 100 03/31/19 00:00 80 03/31/19 00:00 98.0 82 18 128/59 (82) 100 03/30/19 21:00 Nasal Cannula 2.0 03/30/19 20:00 86 03/30/19 20:00 98.4 85 18 123/53 (76) 98 General Appearance: other - anxious EENT: PERRL/EOMI Neck: non-tender Rhythm: NSR Cardiovascular: normal rate Respiratory/Chest: lungs clear Abdomen: non tender Extremities: normal range of motion Intake and Output 03/30/19 03/31/19 19:00 07:00 Intake Total 100 ml 120 ml Output Total 650 ml Balance -550 ml 120 ml Intake Oral 100 ml 120 ml Output Urine Total 650 ml # Voids 1 1 # Bowel Movements 2 1 Laboratory Tests Test 03/31/19 05:15 White Blood Count 4.1 K/UL (4.8-10.8) L Red Blood Count 3.16 M/UL (4.20-5.40) L Hemoglobin 8.7 G/DL (12.0-16.0) L Hematocrit 27.7 % (37.0-47.0) L Mean Corpuscular Volume 88 FL (80-99) Mean Corpuscular Hemoglobin 27.5 PG (27.0-31.0) Mean Corpuscular Hemoglobin Concent 31.3 G/DL (32.0-36.0) L Red Cell Distribution Width 12.8 % (11.6-14.8) Platelet Count 172 K/UL (150-450) Mean Platelet Volume 6.6 FL (6.5-10.1) Neutrophils (%) (Auto) 53.2 % (45.0-75.0) Lymphocytes (%) (Auto) 32.1 % (20.0-45.0) Monocytes (%) (Auto) 11.7 % (1.0-10.0) H Eosinophils (%) (Auto) 2.2 % (0.0-3.0) Basophils (%) (Auto) 0.8 % (0.0-2.0) Sodium Level 141 MMOL/L (136-145) Potassium Level 4.1 MMOL/L (3.5-5.1) Chloride Level 105 MMOL/L (98-107) Carbon Dioxide Level 29 MMOL/L (21-32) Anion Gap 7 mmol/L (5-15) Blood Urea Nitrogen 10 mg/dL (7-18) Creatinine 0.9 MG/DL (0.55-1.30) Estimat Glomerular Filtration Rate mL/min (>60) Glucose Level 98 MG/DL (74-106) Calcium Level 9.3 MG/DL (8.5-10.1) Amelia Burnett MD Mar 31, 2019 16:48
--- NOTE | 2019-03-31 19:00 | NUR ---
NURSE NOTES: Received patient from NATHALIA Yao, patient in stable condition, lying in bed, comfortably, AOx4, denies pain at this time, watching tv, IV site on L forearm,G20, asymptomatic, intact, patent, bed low&locked, side rails upx3, call light within reach, will continue to monitor and reassess.Patient will be discharged today.Patient will go to back to [facility],room 217, report given to Zina.
--- NOTE | 2019-03-31 19:37 | NUR ---
HAND-OFF: Report given to Shawanda Plascencia. Called LEIGH Hurt and gave report to Zina Lipscomb, aftercare plan and med recon printed and put in to packet with labs, notes and H&P, Pt made aware of D/C, Morphine given at 1930 for chest cramp, endorsed to ELIGH Hurt of stress test results. [facility] picker at or before 2230hrs. Telebox removed.
--- NOTE | 2019-03-31 23:45 | NUR ---
HAND-OFF: Report given to Niyah from [facility], patient in stable condition,VSS, removed IV from L hand G20,removed monitoring coordinator,belongings bag with patient, discharge packet handed to tentering machine off bearer.
--- NOTE | 2019-04-02 22:24 | Discharge Summary ---
Discharge Summary Discharge Summary _ DATE OF ADMISSION: 03/27/2019 DATE OF DISCHARGE: 03/31/2019 DISCHARGED BY: Dr. Mat Kingston CONSULTANTS: Dr. Amelai Villegas [facility] HOSPITAL COURSE: Patient is a 73-year-old female, who presented to ED due to neck pain and difficulty swallowing. She also complained of chest pain radiating up to the neck. She complained about dyspnea. She felt pain in the chest was sharp and constant. She had minimal exertion and cannot relate to whether the chest pain was worsened on exertion. She denied fever or chills. On evaluation at the ED, vital signs were stable. Blood work did not show any leukocytosis. Hemoglobin and hematocrit were stable. Electrolytes were normal. Calcium was elevated to 10.7 initial troponin was negative. proBNP 71. EKG did not show any signs of injury. Chest x-ray showed evidence of prior cervical surgery, otherwise no acute process. She was given morphine and Ativan. She was given lidocaine and Mylanta. Due to age and difficulty of determining symptoms, she was then admitted for evaluation of chest pain. Patient was admitted to telemetry. Patient had reproducible chest pain with palpation and also at rest. She denied any trauma. EKG was normal. However, patient did not feel relief with lorazepam. She felt relief with the Nitro- Bid. Cardiac evaluation was done. Cardiac enzymes were monitored. [employer] was consulted. There was no objective evidence of ongoing acute coronary syndrome. But due to multiple coronary risk factors including diabetes , hypertension and hyperlipidemia, stress test was ordered. Echocardiogram done showed EF 65%. Lexiscan stress test was nonischemic. There was no fixed or reversible perfusion defect. Patient was then cleared for discharge. FINAL DIAGNOSES: Chest pain from costochondritis Anxiety Neck pain Protein calorie malnutrition DISPOSITION: Patient was discharged to a SNF. DISCHARGE MEDICATIONS: Refer to Discharge Medication List. I have been assigned to complete a discharge summary on this account, I was not involved with the patient's management.--JUANA Helm Jacqueline Robles NP Apr 02, 2019 22:24
== END 2019-03-31 23:45 | DRG 206 ==
LOC: EDBD 17:57 → EMR 19:39 → 2E 19:45 → EDBEDREQ 21:03 → 2E 21:38
DX: M94.0 Chondrocostal junction syndrome [Tietze] (principal); E46 Unspecified protein-calorie malnutrition; Z68.1 Body mass index [BMI] 19.9 or less, adult; I10 Essential (primary) hypertension; F41.9 Anxiety disorder, unspecified; Z88.6 Allergy status to analgesic agent; R13.10 Dysphagia, unspecified; E11.9 Type 2 diabetes mellitus without complications; Z98.1 Arthrodesis status; E78.5 Hyperlipidemia, unspecified; G62.9 Polyneuropathy, unspecified; M54.2 Cervicalgia
CPT/HCPCS: 36415; 71045; 78452; 80048; 80053; 82550; 82962; 83880; 84484; 85007; 85025; 85610; 85730; 87081; 93005; 93017; 93306; 96361; 96374; 96375; 96376; 99285; J1815; J2405; J2785